=== PATIENT | female | born 1975 | race Caucasian/White ===

== ENCOUNTER 2017-11-14 08:19 | Emergency (ER) | payer SELFPAY ==
[2017-11-14] MEDS ORDERED: Sodium Chloride 0.9% 1,000 ML IV ONE (08:36)
[2017-11-14] MEDS ORDERED: Sodium Chloride 0.9% 2.5 ML Syringe FLUSH PRN (08:36)
[2017-11-14] MEDS ORDERED: Ketorolac 30 MG/ML SDV IVPUSH ONE (08:36)
[2017-11-14] MEDS ORDERED: HYDROmorphone 2 MG/ML Syringe IVPUSH ONE (08:36)
[2017-11-14] MEDS ORDERED: Sodium Chloride 0.9% 10 ML Syringe FLUSH PRN (08:36)
[2017-11-14] MEDS ORDERED: Ondansetron 4 MG/2 ML SDV IVPUSH ONE (08:39)
--- NOTE | 2017-11-14 08:39 | EDM.PDOC ---
ED HPI GENERAL MEDICAL PROBLEM - General Chief Complaint: Genitourinary Problem Stated Complaint: UNABLE TO URINATE Time Seen by Provider: 11/14/17 08:27 - History of Present Illness INITIAL COMMENTS - FREE TEXT/NARRATIVE: HISTORY AND PHYSICAL: History of present illness: The patient is a 42-year-old female with a history of 2 prior episodes of kidney stones on the right one requiring a stent who presents with complaints of right lower back and right flank pain as well as difficulty urinating and dysuria for the last 2-1/2 days. Patient says that she has been passing urine but in very small amounts and there is discomfort with this but there is no blood. Patient has a history of a cholecystectomy and a partial hysterectomy, leaving the ovaries. She has had no fever chills cough chest pain or shortness of breath and no nausea or vomiting. Patient says she's concerned because she is not passing urine appropriately and there is a lot of discomfort when she passes the urine as well as in the suprapubic area as well as the flank. She says this does feel somewhat like a kidney stone as well. The patient denies any midline back pain and no back pain that radiates to her legs and has no bowel or bladder disturbances other than described above are the patient has no neurosensory changes in her lower extremities or weakness. Review of systems: As per history of present illness and below otherwise all systems reviewed and negative. Past medical history: As per history of present illness and as reviewed below otherwise noncontributory. Surgical history: As per history of present illness and as reviewed below otherwise noncontributory. Social history: No reported history of drug or alcohol abuse. Family history: As per history of present illness and as reviewed below otherwise noncontributory. Physical exam: Gen.: Well-developed well-nourished female who looks somewhat uncomfortable in the room but is nontoxic and vital signs have been noted by me HEENT: Atraumatic, normocephalic, pupils reactive, negative for conjunctival pallor or scleral icterus, mucous membranes tacky, throat clear, neck supple, nontender, trachea midline. Lungs: Clear to auscultation, breath sounds equal bilaterally, chest nontender. Heart: S1S2, regular rate and rhythm no overt murmurs Abdomen: Soft, nondistended, some mild suprapubic discomfort without rebound or guarding and bowel sounds are hypoactive Negative for masses or hepatosplenomegaly. Negative for costovertebral tenderness. Pelvis: Stable nontender. Genitourinary: Deferred as patient has had a hysterectomy Rectal: Deferred. Extremities: Atraumatic, negative for cords or calf pain. Neurovascular unremarkable. Neuro: Awake, alert, oriented. Cranial nerves II through XII unremarkable. Cerebellum unremarkable. Motor and sensory unremarkable throughout. Exam nonfocal. Patient moves all extremities without difficulty and there is no loss of tone. Dorsi and plantar flexion is intact inclusive of the great toe 5/5. Patellar reflexes are +2 over 4 bilaterally Back: There are no midline step-offs in his defects of the midline thoracic and lumbar spine no posterior pelvis tenderness. There is some discomfort in the posterior soft tissue flank area on the right. There is no discrete CVA tenderness. Diagnostics: UA urine culture CBC CMP bladder scan and CT scan of the abdomen and pelvis Therapeutics: IV IV fluids Toradol Dilaudid Zofran Patient was able to freely void approximately 80 mL of urine and her bladder scan postvoid residual was 445 mL. We will reevaluate for possible Zhang catheter placement after the CT scan has been obtained All testing results have come back negative and I discussed these results with the patient. We have also repeated the bladder scan which reveals 444 mL of retained urine. I have discussed this case with our urologist Dr. Pinon who does not feel that a Zhang is indicated but he does recommend straight catheterizing the patient and following up with him if she has continued problems with difficulty voiding. Please note that on straight catheter the yield was only 100 mL of urine and the patient tells nursing and me that she feels significantly better. Impression: Dysuria, subjective urinary retention stable Definitive disposition and diagnosis as appropriate pending reevaluation and review of above. bilateral flank pain Pain Score (Numeric/FACES): 10 - Related Data Allergies Allergy/AdvReac Type Severity Reaction Status Date / Time No Known Allergies Allergy Verified 11/14/17 08:29 Home Meds: Home Meds . [No Known Home Meds] 11/14/17 [History] ED ROS GENERAL - Review of Systems Review Of Systems: ROS reveals no pertinent complaints other than HPI. ED EXAM, GENERAL - Physical Exam Exam: See Below (See dictation) Course - Vital Signs Last Recorded V/S: Last Vital Signs Temp 36.7 C 11/14/17 08:30 Pulse 70 11/14/17 09:52 Resp 16 11/14/17 09:52 BP 100/62 11/14/17 09:52 Pulse Ox 98 11/14/17 09:52 - Orders/Labs/Meds Orders: Active Orders 24 hr Category Date Time Status CULTURE URINE [RM] Stat Lab 11/14/17 08:30 Received Sodium Chloride 0.9% [Saline Flush] Med 11/14/17 08:36 Active 10 ml FLUSH ASDIRECTED PRN Sodium Chloride 0.9% [Saline Flush] Med 11/14/17 08:36 Active 2.5 ml FLUSH ASDIRECTED PRN Saline Lock Insert [OM.PC] Stat Oth 11/14/17 08:35 Ordered Medication Orders Sodium Chloride (Saline Flush) 10 ml FLUSH ASDIRECTED PRN PRN Reason: Keep Vein Open Last Admin: 11/14/17 09:25 Dose: 10 ml Sodium Chloride (Saline Flush) 2.5 ml FLUSH ASDIRECTED PRN PRN Reason: Keep Vein Open Last Admin: 11/14/17 09:25 Dose: 2.5 ml Labs: Laboratory Tests 11/14/17 11/14/17 11/14/17 Range/Units 08:30 08:30 08:41 WBC 11.74 H (4.0-11.0) K/uL RBC 4.73 (4.30-5.90) M/uL Hgb 15.2 (12.0-16.0) g/dL Hct 45.3 (36.0-46.0) % MCV 95.8 (80.0-98.0) fL MCH 32.1 H (27.0-32.0) pg MCHC 33.6 (31.0-37.0) g/dL RDW Std Deviation 47.3 (28.0-62.0) fl RDW Coeff of Negrita 14 (11.0-15.0) % Plt Count 309 (150-400) K/uL MPV 9.80 (7.40-12.00) fL Neut % (Auto) 66.9 (48.0-80.0) % Lymph % (Auto) 25.9 (16.0-40.0) % [place] % (Auto) 3.7 (0.0-15.0) % Eos % (Auto) 3.2 (0.0-7.0) % Baso % (Auto) 0.3 (0.0-1.5) % Neut # (Auto) 7.9 H (1.4-5.7) K/uL Lymph # (Auto) 3.0 H (0.6-2.4) K/uL [place] # (Auto) 0.4 (0.0-0.8) K/uL Eos # (Auto) 0.4 (0.0-0.7) K/uL Baso # (Auto) 0.0 (0.0-0.1) K/uL Nucleated RBC % 0.0 /100WBC Nucleated RBCs # 0 K/uL Sodium 138 (136-146) mmol/L Potassium 4.3 (3.5-5.1) mmol/L Chloride 105 (98-110) mmol/L Carbon Dioxide 23 (21-31) mmol/L BUN 9 (6.0-23.0) mg/dL Creatinine 0.8 (0.6-1.5) mg/dL Est Cr Clr Drug Dosing 65.80 mL/min Estimated GFR (MDRD) > 60.0 ml/min Glucose 100 (60-110) mg/dL Calcium 8.9 (8.8-10.8) mg/dL Total Bilirubin 0.9 (0.1-1.5) mg/dL AST 18 (5-40) IU/L ALT 20 (8-54) IU/L Alkaline Phosphatase 64 (40-150) Total Protein 7.0 (6.0-8.0) g/dL Albumin 4.2 (3.5-5.0) g/dL Globulin 2.8 (2.0-3.5) g/dL Albumin/Globulin Ratio 1.5 (1.3-2.8) Urine Color YELLOW Urine Appearance CLEAR Urine pH 6.0 (5.0-8.0) Ur Specific [place] 1.020 (1.001-1.035) Urine Protein NEGATIVE (NEGATIVE) mg/dL Urine Glucose (UA) NEGATIVE (NEGATIVE) mg/dL Urine Ketones NEGATIVE (NEGATIVE) mg/dL Urine Occult Blood NEGATIVE (NEGATIVE) Urine Nitrite NEGATIVE (NEGATIVE) Urine Bilirubin NEGATIVE (NEGATIVE) Urine Urobilinogen 0.2 (<2.0) EU/dL Ur Leukocyte Esterase NEGATIVE (NEGATIVE) Urine RBC 0-1 (0-2/HPF) Urine WBC 0-1 (0-5/HPF) Ur Epithelial Cells OCCASIONAL (NONE-FEW) Urine Bacteria RARE (NEGATIVE) Meds: Medications Generic Name Dose Route Start Last Admin Trade Name Freq PRN Reason Stop Dose Admin Sodium Chloride 10 ml 11/14/17 08:36 11/14/17 09:25 Saline Flush FLUSH 10 ml ASDIRECTED PRN Administration Keep Vein Open Sodium Chloride 2.5 ml 11/14/17 08:36 11/14/17 09:25 Saline Flush FLUSH 2.5 ml ASDIRECTED PRN Administration Keep Vein Open Discontinued Medications Generic Name Dose Route Start Last Admin Trade Name Freq PRN Reason Stop Dose Admin Hydromorphone HCl 1 mg 11/14/17 08:36 11/14/17 08:54 Dilaudid IVPUSH 11/14/17 08:37 1 mg ONETIME ONE Administration Sodium Chloride 1,000 mls @ 999 mls/hr 11/14/17 08:36 11/14/17 08:49 Normal Saline IV 11/14/17 09:36 999 mls/hr STAT ONE Administration Ketorolac Tromethamine 30 mg 11/14/17 08:36 11/14/17 08:51 Toradol IVPUSH 11/14/17 08:37 30 mg ONETIME ONE Administration Ondansetron HCl 4 mg 11/14/17 08:39 11/14/17 08:51 Zofran IVPUSH 11/14/17 08:40 4 mg ONETIME ONE Administration Departure - Departure Time of Disposition: 10:28 Disposition: Home, Self-Care 01 Condition: Good Clinical Impression: Dysuria, Flank pain - Discharge Information Referrals: PCP,None [Primary Care Provider] - Forms: ED Department Discharge Additional Instructions: The following information is given to patients seen in the emergency department who are being discharged to home. This information is to outline your options for follow-up care. We provide all patients seen in our emergency department with a follow-up referral. The need for follow-up, as well as the timing and circumstances, are variable depending upon the specifics of your emergency department visit. If you don't have a primary care physician on staff, we will provide you with a referral. We always advise you to contact your personal physician following an emergency department visit to inform them of the circumstance of the visit and for follow-up with them and/or the need for any referrals to a consulting specialist. The emergency department will also refer you to a specialist when appropriate. This referral assures that you have the opportunity for followup care with a specialist. All of these measure are taken in an effort to provide you with optimal care, which includes your followup. Under all circumstances we always encourage you to contact your private physician who remains a resource for coordinating your care. When calling for followup care, please make the office aware that this follow-up is from your recent emergency room visit. If for any reason you are refused follow-up, please contact the [facility] emergency department at and ask to speak to the emergency department charge nurse. [facility] Primary care- Internal Medicine and [facility] [address] [place] [id number] [facility] [address] [place] [id number] Please contact our clinic to connect with her primary care physician for further care and evaluation going forward as we discussed. Push hydration and return to ER as needed and as discussed especially if symptoms return or progress. - My Orders Last 24 Hours: My Active Orders 11/14/17 08:30 CULTURE URINE [RM] Stat 11/14/17 08:35 Saline Lock Insert [OM.PC] Stat 11/14/17 08:36 Sodium Chloride 0.9% [Saline Flush] 10 ml FLUSH ASDIRECTED PRN Sodium Chloride 0.9% [Saline Flush] 2.5 ml FLUSH ASDIRECTED PRN - Assessment/Plan Last 24 Hours: My Active Orders 11/14/17 08:30 CULTURE URINE [RM] Stat 11/14/17 08:35 Saline Lock Insert [OM.PC] Stat 11/14/17 08:36 Sodium Chloride 0.9% [Saline Flush] 10 ml FLUSH ASDIRECTED PRN Sodium Chloride 0.9% [Saline Flush] 2.5 ml FLUSH ASDIRECTED PRN
[2017-11-14 09:10] LABS: CHLORIDE,CL 105 mmol/L (98-110); SODIUM,NA 138 mmol/L (136-146)
--- NOTE | 2017-11-14 09:55 | CT ---
CT of the abdomen and pelvis without contrast. HISTORY: Pain TECHNIQUE: Axial CT images were obtained of the abdomen and pelvis without contrast. Coronal and sagi ttal reconstructions obtained. FINDINGS: The lung bases are clear, no pleural effusion. The liver, spleen, adrenal glands, and pancreas appear unremarkable for noncontrast examination. Chol ecystectomy. There is no bulky retroperitoneal lymphadenopathy. No abdominal ascites. There are no calcifications noted within the kidneys or along the courses of the ureters bilaterally. The large and small bowel are normal in caliber without evidence of obstruction. The appendix appears normal. There is no bulky pelvic lymphadenopathy. No free fluid. No free air. The urinary bladder ap pears normal. The ovaries appear normal. The visualized osseous structures appear normal. IMPRESSION: No acute findings within the abdomen or pelvis.
== END 2017-11-14 10:45 | disposition home or self-care (01) ==
LOC: MW.ED 08:19
DX: R33.9 Retention of urine, unspecified (principal); R30.0 Dysuria
CPT/HCPCS: 36415; 74176; 80053; 81001; 85025; 87086; 96361; 96374; 96375; 99284; J1170; J1885; J2405; J7040; 99283

== ENCOUNTER 2017-12-29 12:45 | Emergency (ER) | payer SELFPAY ==
--- NOTE | 2017-12-29 12:59 | EDM.PDOC ---
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 Time Seen by Provider: 12/29/17 12:59 Source of Information: Reports: Patient - History of Present Illness INITIAL COMMENTS - FREE TEXT/NARRATIVE: HISTORY AND PHYSICAL: History of present illness: [ Patient presents with abdominal pain she has a known history of pain associated with her ovaries/ovarian pain however today she states she has subjective fever and sweats as well as nausea which is different for her her pain is mostly on the left however on abdominal exam I do created a right lower quadrant tenderness with slight guarding no rebound tenderness No current fever vomiting or chills no chest pain shortness breath headache dizziness or palpitation no bowel or urine symptoms ] Review of systems: As per history of present illness and below otherwise all systems reviewed and negative. Past medical history: As per history of present illness and as reviewed below otherwise noncontributory. Surgical history: As per history of present illness and as reviewed below otherwise noncontributory. Social history: No reported history of drug or alcohol abuse. Family history: As per history of present illness and as reviewed below otherwise noncontributory. Physical exam: HEENT: Atraumatic, normocephalic, pupils reactive, negative for conjunctival pallor or scleral icterus, mucous membranes moist, throat clear, neck supple, nontender, trachea midline. Lungs: Clear to auscultation, breath sounds equal bilaterally, chest nontender. Heart: S1S2, regular, negative for clicks, rubs, or JVD. Abdomen: Soft, nondistended, tender on deep palpation in the right lower quadrant with some guarding no rebound tenderness. Negative for masses or hepatosplenomegaly. Negative for costovertebral tenderness. Pelvis: Stable nontender. Genitourinary: Deferred. Rectal: Deferred. Extremities: Atraumatic, negative for cords or calf pain. Neurovascular unremarkable. Neuro: Awake, alert, oriented. Cranial nerves II through XII unremarkable. Cerebellum unremarkable. Motor and sensory unremarkable throughout. Exam nonfocal. Diagnostics: [CBC CMP UA CT abdomen pelvis with contrast ] Therapeutics: [1 L normal saline bolus Zofran 8 mg IV Toradol 30 mg IV Morphine 2 mg IV [place] 5 per 325 #10 no refill Bactrim double strength by mouth twice a day #20 no refill ] Follow-up with primary care for continued pain management as needed Impression: [Abdominal pain] Bacteria 1+ in urine in addition 2-3-5 white blood cells, culture pending Definitive disposition and diagnosis as appropriate pending reevaluation and review of above. lower abd Pain Score (Numeric/FACES): 10 - Related Data Allergies Allergy/AdvReac Type Severity Reaction Status Date / Time No Known Allergies Allergy Verified 12/29/17 13:03 Home Meds: Home Meds . [No Known Home Meds] 11/14/17 [History] Past Medical History Genitourinary History: Reports: Renal Calculus - Past Surgical History GI Surgical History: Reports: Cholecystectomy Female Surgical History: Reports: Hysterectomy, Ureteral Stent Social & Family History - Family History Family Medical History: Noncontributory - Tobacco Use Smoking Status *Q: Current Every Day Smoker Years of Tobacco use: 20 Packs/Tins Daily: 1 - Caffeine Use Caffeine Use: Reports: Tea - Alcohol Use Days Per Week of Alcohol Use: 7 Number of Drinks Per Day: 4 Total Drinks Per Week: 28 - Recreational Drug Use Recreational Drug Use: No ED ROS GENERAL - Review of Systems Review Of Systems: See Below ED EXAM, GENERAL - Physical Exam Exam: See Below Course - Vital Signs Last Recorded V/S: Last Vital Signs Temp 97.7 F 12/29/17 15:29 Pulse 85 12/29/17 15:29 Resp 16 12/29/17 14:48 BP 107/66 12/29/17 15:29 Pulse Ox 98 12/29/17 15:29 - Orders/Labs/Meds Orders: Active Orders 24 hr Category Date Time Status Abdomen Pelvis w Cont [CT] Stat Exams 12/29/17 14:41 Taken Labs: Laboratory Tests 12/29/17 12/29/17 12/29/17 Range/Units 13:50 13:50 13:59 WBC 10.70 (4.0-11.0) K/uL RBC 4.70 (4.30-5.90) M/uL Hgb 15.1 (12.0-16.0) g/dL Hct 43.9 (36.0-46.0) % MCV 93.4 (80.0-98.0) fL MCH 32.1 H (27.0-32.0) pg MCHC 34.4 (31.0-37.0) g/dL RDW Std Deviation 47.4 (28.0-62.0) fl RDW Coeff of Negrita 14 (11.0-15.0) % Plt Count 334 (150-400) K/uL MPV 10.60 (7.40-12.00) fL Neut % (Auto) 65.3 (48.0-80.0) % Lymph % (Auto) 26.4 (16.0-40.0) % [place] % (Auto) 5.1 (0.0-15.0) % Eos % (Auto) 2.9 (0.0-7.0) % Baso % (Auto) 0.3 (0.0-1.5) % Neut # (Auto) 7.0 H (1.4-5.7) K/uL Lymph # (Auto) 2.8 H (0.6-2.4) K/uL [place] # (Auto) 0.6 (0.0-0.8) K/uL Eos # (Auto) 0.3 (0.0-0.7) K/uL Baso # (Auto) 0.0 (0.0-0.1) K/uL Nucleated RBC % 0.0 /100WBC Nucleated RBCs # 0 K/uL Sodium 140 (136-146) mmol/L Potassium 3.9 (3.5-5.1) mmol/L Chloride 109 (98-110) mmol/L Carbon Dioxide 22 (21-31) mmol/L BUN 10 (6.0-23.0) mg/dL Creatinine 0.8 (0.6-1.5) mg/dL Est Cr Clr Drug Dosing 65.80 mL/min Estimated GFR (MDRD) > 60.0 ml/min Glucose 96 (60-110) mg/dL Calcium 8.6 L (8.8-10.8) mg/dL Total Bilirubin 0.7 (0.1-1.5) mg/dL AST 14 (5-40) IU/L ALT 16 (8-54) IU/L Alkaline Phosphatase 64 (40-150) Troponin I < 0.10 (0.0-0.29) NG/ML C-Reactive Protein 0.92 H (0.0-0.5) mg/dL Total Protein 6.4 (6.0-8.0) g/dL Albumin 4.0 (3.5-5.0) g/dL Globulin 2.4 (2.0-3.5) g/dL Albumin/Globulin Ratio 1.7 (1.3-2.8) Urine Color DARK YELLOW Urine Appearance CLOUDY Urine pH 6.0 (5.0-8.0) Ur Specific [place] >= 1.030 (1.001-1.035) Urine Protein NEGATIVE (NEGATIVE) mg/dL Urine Glucose (UA) NEGATIVE (NEGATIVE) mg/dL Urine Ketones NEGATIVE (NEGATIVE) mg/dL Urine Occult Blood NEGATIVE (NEGATIVE) Urine Nitrite NEGATIVE (NEGATIVE) Urine Bilirubin NEGATIVE (NEGATIVE) Urine Urobilinogen 0.2 (<2.0) EU/dL Ur Leukocyte Esterase NEGATIVE (NEGATIVE) Urine RBC 0-1 (0-2/HPF) Urine WBC 2-5 (0-5/HPF) Ur Epithelial Cells MANY (NONE-FEW) Urine Bacteria 1+ H (NEGATIVE) Urine Mucus MODERATE (NONE-MOD) Meds: Medications Discontinued Medications Generic Name Dose Route Start Last Admin Trade Name Freq PRN Reason Stop Dose Admin Sodium Chloride 1,000 mls @ 999 mls/hr 12/29/17 13:35 12/29/17 13:56 Normal Saline IV 12/29/17 14:35 999 mls/hr STAT ONE Administration Iopamidol 100 ml 12/29/17 15:20 Isovue Multipack-370 (76%) IVPUSH 12/29/17 15:21 ONETIME ONE Ketorolac Tromethamine 30 mg 12/29/17 13:35 12/29/17 13:56 Toradol IVPUSH 12/29/17 13:36 30 mg ONETIME ONE Administration Morphine Sulfate 2 mg 12/29/17 14:40 12/29/17 14:46 Morphine IVPUSH 12/29/17 14:41 2 mg ONETIME ONE Administration Ondansetron HCl 8 mg 12/29/17 14:40 12/29/17 14:46 Zofran IVPUSH 12/29/17 14:41 8 mg ONETIME ONE Administration Departure - Departure Time of Disposition: 15:50 Disposition: Home, Self-Care 01 Condition: Good Clinical Impression: Abdominal pain - Discharge Information Referrals: PCP,None [Primary Care Provider] - Forms: ED Department Discharge Additional Instructions: Medication as prescribed Return if symptoms persist or worsen Follow-up with primary care in 2 weeks, number below provided to schedule appropriate appointment for follow-up [facility] - [facility] [address] [place] [id number] The following information is given to patients seen in the emergency department who are being discharged to home. This information is to outline your options for follow-up care. We provide all patients seen in our emergency department with a follow-up referral. The need for follow-up, as well as the timing and circumstances, are variable depending upon the specifics of your emergency department visit. If you don't have a primary care physician on staff, we will provide you with a referral. We always advise you to contact your personal physician following an emergency department visit to inform them of the circumstance of the visit and for follow-up with them and/or the need for any referrals to a consulting specialist. The emergency department will also refer you to a specialist when appropriate. This referral assures that you have the opportunity for follow-up care with a specialist. All of these measure are taken in an effort to provide you with optimal care, which includes your follow-up. Under all circumstances we always encourage you to contact your private physician who remains a resource for coordinating your care. When calling for follow-up care, please make the office aware that this follow-up is from your recent emergency room visit. If for any reason you are refused follow-up, please contact the [facility] emergency department at and asked to speak to the emergency department charge nurse. - My Orders Last 24 Hours: My Active Orders 12/29/17 14:41 Abdomen Pelvis w Cont [CT] Stat - Assessment/Plan Last 24 Hours: My Active Orders 12/29/17 14:41 Abdomen Pelvis w Cont [CT] Stat
[2017-12-29] MEDS ORDERED: Ketorolac 30 MG/ML SDV IVPUSH ONE (13:35)
[2017-12-29] MEDS ORDERED: Sodium Chloride 0.9% 1,000 ML IV ONE (13:35)
[2017-12-29] MEDS ORDERED: Morphine 2 MG/ML Syringe IVPUSH ONE (14:40)
[2017-12-29] MEDS ORDERED: Ondansetron 4 MG/2 ML SDV IVPUSH ONE (14:40)
[2017-12-29 14:49] LABS: CHLORIDE,CL 109 mmol/L (98-110); SODIUM,NA 140 mmol/L (136-146)
[2017-12-29] MEDS ORDERED: Iopamidol 755 MG/ML 500 ML Multipack Bottle IVPUSH ONE (15:20)
--- NOTE | 2017-12-31 17:44 | CT ---
EXAM DATE: 12/29/17 PATIENT'S AGE: 42 Patient: DALI NAGY Facility: [place], [place] Site . Site : [id number] Study: CT Abdomen [id number]/[id number] 3:25:23 PM Ordering Physician: Jackelin Canales Final Report: HISTORY: Left lower quadrant pain. TECHNIQUE: Contrast-enhanced CT abdomen and pelvis without 100 Varg[place] Isovue-370 coronal sagittal reformatted images obtained. COMPARISON: No comparison studies are available. FINDINGS: The heart size is normal. The lung bases appear clear. There is no pericardial or pleural effusion. Tiny low density lesion in the liver too small to characterize. Cholecystectomy. Pancreas adrenal glands spleen is unremarkable. Kidneys enhance symmetrically. There is no hydronephrosis. Normal appendix. Urinary bladder is unremarkable. No inflammatory change are seen. Bowel is unremarkable. Osseous structures are unremarkable. IMPRESSION: 1. No acute findings in the abdomen or pelvis. Please note that all CT scans at this facility use dose modulation, iterative reconstruction, and/or weight-based dosing when appropriate to reduce radiation dose to as low as reasonably achievable. Dictated by Soco Yao MD @ Dec 29 2017 3:39PM (Electronic Signature) Report Signed by Proxy. ALAN
== END 2017-12-29 16:12 | disposition home or self-care (01) ==
LOC: MW.ED 12:45
DX: R82.71 Bacteriuria (principal); R10.30 Lower abdominal pain, unspecified; F17.210 Nicotine dependence, cigarettes, uncomplicated; Z90.710 Acquired absence of both cervix and uterus; Z90.49 Acquired absence of other specified parts of digestive tract; Z96.0 Presence of urogenital implants
CPT/HCPCS: 36415; 74177; 80053; 81001; 84484; 85025; 86140; 87086; 96361; 96374; 96375; 99284; J1885; J2270; J2405; J7040

== ENCOUNTER 2018-08-06 16:08 | Emergency (ER) | payer MEDICAID ==
[2018-08-06] MEDS ORDERED: methylPREDNISolone Sodium Succinate 125 MG/2 ML SDV IM ONE (16:43)
[2018-08-06] MEDS ORDERED: Albuterol/Ipratropium 3.0-0.5 MG/3 ML Neb Soln NEB ONE (16:43)
--- NOTE | 2018-08-06 16:44 | EDM.PDOC ---
ED HPI GENERAL MEDICAL PROBLEM - General Chief Complaint: General Stated Complaint: SICK FOR A WEEK Time Seen by Provider: 08/06/18 16:26 Source of Information: Reports: Patient - History of Present Illness INITIAL COMMENTS - FREE TEXT/NARRATIVE: HISTORY AND PHYSICAL: History of present illness: []Patient with smoking history presents with cough increasing in severity over the last 2 weeks some shortness of breath or wheeze exertion no chest pain headache dizziness palpitation no fever nausea vomiting chills sweats Total abdominal hysterectomy Review of systems: As per history of present illness and below otherwise all systems reviewed and negative. Past medical history: As per history of present illness and as reviewed below otherwise noncontributory. Surgical history: As per history of present illness and as reviewed below otherwise noncontributory. Social history: No reported history of drug or alcohol abuse. Family history: As per history of present illness and as reviewed below otherwise noncontributory. Physical exam: HEENT: Atraumatic, normocephalic, pupils reactive, negative for conjunctival pallor or scleral icterus, mucous membranes moist, throat clear, neck supple, nontender, trachea midline. Lungs: Clear to auscultation, breath sounds equal bilaterally, chest nontender she is tender along the lower rib margin and paraspinous muscles. Post DuoNeb Heart: S1S2, regular, negative for clicks, rubs, or JVD. Abdomen: Soft, nondistended, nontender. Negative for masses or hepatosplenomegaly. Negative for costovertebral tenderness. Pelvis: Stable nontender. Genitourinary: Deferred. Rectal: Deferred. Extremities: Atraumatic, negative for cords or calf pain. Neurovascular unremarkable. Neuro: Awake, alert, oriented. Cranial nerves II through XII unremarkable. Cerebellum unremarkable. Motor and sensory unremarkable throughout. Exam nonfocal. Diagnostics: [Chest 2 views ]Patient declines rib views Therapeutics: [125 mg IM DuoNeb Z-Kwabena ]HFA Tramadol Impression: [ acute bronchitis ] Definitive disposition and diagnosis as appropriate pending reevaluation and review of above. RIght Ribs Pain Score (Numeric/FACES): 10 - Related Data Allergies Allergy/AdvReac Type Severity Reaction Status Date / Time No Known Allergies Allergy Verified 08/06/18 16:36 Home Meds: Home Meds . [No Known Home Meds] 11/14/17 [History] Past Medical History - Past Health History Medical/Surgical History: Denies Medical/Surgical History Genitourinary History: Reports: Renal Calculus - Infectious Disease History Infectious Disease History: Reports: Chicken Pox - Past Surgical History GI Surgical History: Reports: Cholecystectomy Female Surgical History: Reports: Hysterectomy, Ureteral Stent Social & Family History - Family History Family Medical History: Noncontributory - Tobacco Use Smoking Status *Q: Current Every Day Smoker Years of Tobacco use: 30 Packs/Tins Daily: 1.5 - Caffeine Use Caffeine Use: Reports: Soda - Alcohol Use Days Per Week of Alcohol Use: 5 Number of Drinks Per Day: 3 Total Drinks Per Week: 15 - Recreational Drug Use Recreational Drug Use: Yes Drug Use in Last 12 Months: Yes Recreational Drug Type: Reports: Marijuana/Hashish Recreational Drug Use Frequency: Socially ED ROS GENERAL - Review of Systems Review Of Systems: See Below ED EXAM, GENERAL - Physical Exam Exam: See Below Course - Vital Signs Last Recorded V/S: Last Vital Signs Temp 97.5 F 08/06/18 16:32 Pulse 102 H 08/06/18 16:32 Resp 20 08/06/18 16:32 BP 129/84 08/06/18 16:32 Pulse Ox 97 08/06/18 16:32 - Orders/Labs/Meds Orders: Active Orders 24 hr Category Date Time Status RT Aerosol Therapy [RC] ASDIRECTED Care 08/06/18 16:43 Active Chest 2V [CR] Stat Exams 08/06/18 16:44 Taken Meds: Medications Discontinued Medications Generic Name Dose Route Start Last Admin Trade Name Deoq PRN Reason Stop Dose Admin Albuterol/Ipratropium 3 ml 08/06/18 16:43 08/06/18 16:54 Duoneb 3.0-0.5 Mg/3 Ml NEB 08/06/18 16:44 3 ml ONETIME ONE Administration Methylprednisolone Sodium Succinate 125 mg 08/06/18 16:43 08/06/18 16:54 Solu-Medrol IM 08/06/18 16:44 125 mg ONETIME ONE Administration Departure - Departure Time of Disposition: 17:27 Disposition: Home, Self-Care 01 Condition: Good Clinical Impression: Acute bronchitis - Discharge Information Referrals: PCP,None [Primary Care Provider] - Forms: ED Department Discharge Additional Instructions: The following information is given to patients seen in the emergency department who are being discharged to home. This information is to outline your options for follow-up care. We provide all patients seen in our emergency department with a follow-up referral. The need for follow-up, as well as the timing and circumstances, are variable depending upon the specifics of your emergency department visit. If you don't have a primary care physician on staff, we will provide you with a referral. We always advise you to contact your personal physician following an emergency department visit to inform them of the circumstance of the visit and for follow-up with them and/or the need for any referrals to a consulting specialist. The emergency department will also refer you to a specialist when appropriate. This referral assures that you have the opportunity for follow-up care with a specialist. All of these measure are taken in an effort to provide you with optimal care, which includes your follow-up. Under all circumstances we always encourage you to contact your private physician who remains a resource for coordinating your care. When calling for follow-up care, please make the office aware that this follow-up is from your recent emergency room visit. If for any reason you are refused follow-up, please contact the [facility] emergency department at and asked to speak to the emergency department charge nurse.
[2018-08-06] MEDS ORDERED: Acetaminophen/HYDROcodone 325-5 MG Tab PO ONE (17:28)
--- NOTE | 2018-08-07 10:21 | CR ---
EXAM DATE: 08/06/18 PATIENT'S AGE: 43 Patient: DALI NAGY Facility: [place], [place] Site . Site : [id number] Study: XRay Chest [id number]/25/2018 5:15:51 PM Ordering Physician: Jackelin Canales Final Report: INDICATION: Cough for 2 weeks COMPARISON: None available. FINDINGS: PA and lateral views of the chest were obtained. The lungs are clear. No focal or diffuse infiltrates are present. The heart is normal in size. The mediastinum is normal in appearance. The osseous structures are normal in appearance for the patient`s age. IMPRESSION: NORMAL CHEST 2 VIEWS. Dictated by Spenser Waldrop MD @ Aug 06 2018 5:40PM (Electronic Signature) Report Signed by Proxy. ALAN
== END 2018-08-06 17:40 | disposition home or self-care (01) ==
LOC: MW.ED 16:08
DX: J20.9 Acute bronchitis, unspecified (principal)
CPT/HCPCS: 71046; 94640; 96372; 99283; A9270; J2930; J7620-GY

== ENCOUNTER 2019-04-23 10:29 | Day surgery (SDC) | payer MEDICAID ==
[~2019-04-23 10:29] MED LIST: Lactated Ringers 1,000 ML IV SCH
[2019-04-23] MEDS ORDERED: Propofol 200 MG/20 ML SDV ONE (11:04)
[2019-04-23] MEDS ORDERED: Midazolam 1 MG/ML 2 ML SDV ONE (11:04)
[2019-04-23] MEDS ORDERED: fentaNYL 100 MCG/2 ML SDV ONE (11:05)
--- NOTE | 2019-04-23 11:13 | PCM.PREANE ---
Preanesthetic Assessment - Anesthesia/Transfusion/Family Hx Anesthesia History: Prior Anesthesia Without Reaction Family History of Anesthesia Reaction: No Transfusion History: No Prior Transfusion(s) Intubation History: Unknown - Review of Systems General: No Symptoms Pulmonary: No Symptoms Cardiovascular: No Symptoms Gastrointestinal: Abdominal Pain, Hematochezia Neurological: No Symptoms Other: Reports: None - Physical Assessment Height: 5 ft Weight: 85.729 kg ASA Class: 3 Mental Status: Alert & Oriented x3 Airway Class: Mallampati = 2 Dentition: Reports: Normal Dentition, Broken Tooth/Teeth (on the back side) Thyro-Mental Finger Breadths: 3 Mouth Opening Finger Breadths: 3 ROM/Head Extension: Full Lungs: Clear to Auscultation, Normal Respiratory Effort, Decreased Breath Sounds Cardiovascular: Regular Rate, Regular Rhythm - Allergies Allergies/Adverse Reactions: Allergies Allergy/AdvReac Type Severity Reaction Status Date / Time No Known Allergies Allergy Verified 04/18/19 15:49 - Blood Blood Available: No - Anesthesia Plan Pre-Op Medication Ordered: None - Acknowledgements Anesthesia Type Planned: MAC Pt an Appropriate Candidate for the Planned Anesthesia: Yes Alternatives and Risks of Anesthesia Discussed w Pt/Guardian: Yes Pt/Guardian Understands and Agrees with Anesthesia Plan: Yes PreAnesthesia Questionnaire - Past Health History Medical/Surgical History: Denies Medical/Surgical History HEENT History: Reports: Other (See Below) Other HEENT History: weaqrs glasses Respiratory History: Reports: COPD (moderate), SOB (on exertion, can't walk 2 blocke without SOB) Gastrointestinal History: Reports: GERD Genitourinary History: Reports: Renal Calculus Musculoskeletal History: Reports: Back Pain, Chronic Neurological History: Reports: Concussion Psychiatric History: Reports: Anxiety, Depression Endocrine/Metabolic History: Reports: Obesity/BMI 30+ - Infectious Disease History Infectious Disease History: Reports: Chicken Pox - Past Surgical History GI Surgical History: Reports: Cholecystectomy Female Surgical History: Reports: Hysterectomy, Lithotripsy/ESWL - SUBSTANCE USE Smoking Status *Q: Current Every Day Smoker (1/2 ppd) Tobacco Use Within Last Twelve Months: Cigarettes Recreational Drug Use History: No Recreational Drug Type: Reports: Marijuana/Hashish (occasionaly) - HOME MEDS Home Medications: Home Meds Albuterol [Ventolin HFA] 1 - 2 puff INH Q4H PRN 04/18/19 [History] Glycopyrrolate/Formoterol Fum [Bevespi Aerosphere Inhaler] 2 puff INH BID [History] - CURRENT (IN HOUSE) MEDS Current Meds: Current Medications Lactated Ringer's (Ringers, Lactated) 1,000 mls @ 125 mls/hr IV ASDIRECTED MICHAEL Discontinued Medications Fentanyl (Sublimaze) Confirm Administered Dose 100 mcg .ROUTE .STK-MED ONE Stop: 04/23/19 11:06 Midazolam HCl (Versed 1 Mg/Ml) Confirm Administered Dose 4 mg .ROUTE .STK-MED ONE Stop: 04/23/19 11:05 Propofol (Diprivan 20 Ml) Confirm Administered Dose 400 mg .ROUTE .STK-MED ONE Stop: 04/23/19 11:05
[2019-04-23] MEDS ORDERED: Ketamine 500 mg/10 ML MDV ONE (11:36)
--- NOTE | 2019-04-23 12:18 | PCM.OPNOTE ---
- General Post-Op/Procedure Note Date of Surgery/Procedure: 04/23/19 Operative Procedure(s): egd w bx. colonoscopy Findings: see dict [id number] Pre Op Diagnosis: BRBPR, emisis Post-Op Diagnosis: Same Anesthesia Technique: Moderate Sedation Primary Surgeon: Jonnathan Rubio Pathology: egd bx Complications: None Condition: Good
--- NOTE | 2019-04-23 12:45 | OR ---
SURGEON: Jonnathan Rubio MD DATE OF PROCEDURE: 04/23/2019 PREOPERATIVE DIAGNOSES: Bright red blood per rectum, abdominal pain, emesis. POSTOPERATIVE DIAGNOSES: Esophagogastroduodenoscopy diagnosis, acid reflux. Colonoscopy diagnosis, polyp PROCEDURES PERFORMED: Esophagogastroduodenoscopy with biopsy and colonoscopy with snare polypectomy DESCRIPTION OF PROCEDURE: EGD: The patient was taken to the endoscopy room, and with the EMBOSSING CLERK, Diprivan was administered. A well-lubricated EGD scope was gently inserted through the oropharynx, down the esophagus, passing through the gastroesophageal junction, into the stomach. The mucosa was examined upon the passage. Any etiology will be noted. Once in the stomach, we continued to advance to the distal antrum, passed through the pylorus into the second portion of the duodenum. Again, the mucosa was examined for any abnormality and etiology. The scope was then retrieved back to the stomach and then retroflexed to look at the fundus of the stomach. If a biopsy was indicated, we will biopsy the antrum, body, and gastroesophageal junction. The air will be sucked out while the scope is retrieved to reduce the patient's discomfort. The patient tolerated the procedure well. There were no intraoperative complications. Dr. Rubio was present through the whole procedure. Prior to surgery, a time-out had been called, the patient identified, procedure identified and antibiotic administered. The patient was taken to the endoscopy room. A time out was called, patient identified, and procedure identified. Diprivan was then administrated. Patient went from awake to sleep, hearing doctor talking or door closing is normal. Perineum inspection and digital examination were then performed. A well- lubricated colonoscope was gently inserted through the rectum, advanced past the rectosigmoid junction, the descending colon, splenic flexure, transverse colon, hepatic flexure, ascending colon, arrived to the cecum. Cecum was identified as dictated in the finding. Then the scope was carefully withdrawn while attention was paid to the mucosal surface for any abnormality. Air will be sucked out during the scope withdrawal. At the rectum, retroflexed to examine any rectal diseases, fistula or hemorrhoids. Small polyp encountered at 20 cm, snare polypectomy and sent for pathology; Patient tolerated procedure well. There were no intraoperative complications, and Dr. Rubio was present throughout the whole procedure. FINDINGS: EGD findings: 1. The patient is easily sedated with EMBOSSING CLERK and Diprivan, the patient is soundly snoring. 2. Oropharynx and proximal esophagus are free of disease, inflammation, or stricture. Distal esophagus at GE junction at 40 with mild to moderate salmon-colored change consistent with acid reflux. Stomach rugae are normal in appearance. No bile, no food, no blood. Antrum is fine and duodenum is grossly normal. Retroflexed look at the fundus of stomach, there is no hiatal hernia. Biopsy done at antrum, body, GE junction at 40 and sucked out the gas while scope pulling out. Colonoscopy findings: 1. The patient is easily sedated with EMBOSSING CLERK and Diprivan, the patient is soundly snoring. 2. Bowel prep is average to above average, very little liquid stool. 3. Colon is rather straightforward, but kind of short and colon stump at 1 m. Ileocecal fold and one-to-one indentation and appendiceal orifice are observed. Light emittance is not observed due to body habitus. Mucosa examined upon scope pulling out. at distance 20cm when scope withdrawn, there was a small sessile polyp, snared and sent for pathology; The patient does not have diverticulosis, mass, growth, inflammation, stricture, ulceration, AV malformation, none of those. The patient has mild internal hemorrhoids and mild external hemorrhoids. The patient would benefit from repeat colonoscopy in 10 years from today or if clinically indicated otherwise, or polyp path indicated otherwise. MARIANELA / CJ /[id number] ALAN
--- NOTE | 2019-04-23 12:55 | PCM48HPAN ---
Post Anesthesia Note - EVALUATION WITHIN 48HRS OF ANESTHETIC Vital Signs in Normal Range: Yes Patient Participated in Evaluation: Yes Respiratory Function Stable: Yes Airway Patent: Yes Cardiovascular Function Stable: Yes Hydration Status Stable: Yes Pain Control Satisfactory: Yes Nausea and Vomiting Control Satisfactory: Yes Mental Status Recovered: Yes Resp Rate: 20 - COMMENTS/OBSERVATIONS Free Text/Narrative:: No anesthesia problems
== END 2019-04-23 13:03 | disposition home or self-care (01) ==
LOC: MW.SDS 10:29
PROVIDERS: ATTEND Surgery
DX: K62.5 Hemorrhage of anus and rectum (principal); K63.5 Polyp of colon; K64.8 Other hemorrhoids; K64.4 Residual hemorrhoidal skin tags; K21.0 Gastro-esophageal reflux disease with esophagitis; K31.89 Other diseases of stomach and duodenum; R19.4 Change in bowel habit; J44.9 Chronic obstructive pulmonary disease, unspecified; E55.9 Vitamin D deficiency, unspecified; F17.210 Nicotine dependence, cigarettes, uncomplicated; F41.9 Anxiety disorder, unspecified; F32.9 Major depressive disorder, single episode, unspecified; Z79.899 Other long term (current) drug therapy
CPT/HCPCS: 43239; 45385; J2001; J2250; J2704; J3010; J7120; 00813; 88305; 88312

== ENCOUNTER 2019-08-11 09:48 | Emergency (ER) | payer MEDICAID ==
[2019-08-11] MEDS ORDERED: Sodium Chloride 0.9% 1,000 ML IV ONE (10:03)
[2019-08-11] MEDS ORDERED: Ondansetron 4 MG/2 ML SDV IVPUSH ONE (10:03)
[2019-08-11] MEDS ORDERED: Ketorolac 30 MG/ML SDV IVPUSH ONE (10:19)
[2019-08-11 11:02] LABS: BLOOD UREA NITROGEN,BUN 6 mg/dL (7.0-18.0); CARBON DIOXIDE,CO2 24.3 mmol/L (21.0-32.0); CHLORIDE,CL 104 mmol/L (98-107); GLUCOSE RANDOM 131 mg/dL (74-106); LIPASE 96 U/L (73-393); POTASSIUM,K 4.4 mmol/L (3.5-5.1); SODIUM,NA 139 mmol/L (136-145)
[2019-08-11] MEDS ORDERED: Morphine 2 MG/ML Syringe IVPUSH ONE (13:02)
[2019-08-11] MEDS ORDERED: HYDROmorphone 1 MG/ML Syringe IVPUSH ONE (14:13)
[2019-08-11] MEDS ORDERED: Pantoprazole 40 MG Vial IVPUSH ONE (14:21)
[2019-08-11] MEDS ORDERED: Promethazine 25 MG/ML SDV IM ONE (14:21)
[2019-08-11] MEDS ORDERED: Pantoprazole 40 MG Vial ONE (14:23)
[2019-08-11] MEDS ORDERED: Sodium Chloride 0.9% 20 ML ONE (14:23)
[2019-08-11] MEDS ORDERED: Promethazine 25 MG/ML SDV ONE (14:23)
--- NOTE | 2019-08-11 14:27 | CT ---
CT abdomen and pelvis Technique: Multiple axial sections were obtained from above the dome of the diaphragm inferiorly through the pubic symphysis. Intravenous contrast and oral contrast was not utilized. Comparison: Prior CT abdomen and pelvis exam of 04/16/19. Findings: Visualized portions of both lung bases show nothing acute. Noncontrast appearance of the liver shows no focal abnormality. Spleen also appears within normal limits. Adrenal glands show no nodule. Surgical clips are seen from prior cholecystectomy. Pancreas shows no discrete abnormality. Aorta shows no aneurysm. Atherosclerotic calcification is seen within the aorta. Kidneys show no abnormal calcifications. No retroperitoneal adenopathy or mesenteric abnormalities are seen. No pelvic mass or adenopathy is seen. No free fluid is identified. Appendix is seen which shows no dilatation. No free fluid or inflammatory change is seen. No bowel dilatation is seen. Bone window settings were reviewed which appear within normal limits for the patient's age. Impression: No abnormality is appreciated on noncontrast CT study of the abdomen and pelvis. Evidence of prior cholecystectomy. Diagnostic code #2 MTDD
[2019-08-11] MEDS ORDERED: Sodium Chloride 0.9% 20 ML SDV FLUSH ONE (14:31)
--- NOTE | 2019-08-11 16:09 | EDM.PDOC ---
ED HPI GENERAL MEDICAL PROBLEM - General Chief Complaint: Abdominal Pain Stated Complaint: STOMACH PAIN Time Seen by Provider: 08/11/19 16:08 Source of Information: Reports: Patient - History of Present Illness INITIAL COMMENTS - FREE TEXT/NARRATIVE: HISTORY AND PHYSICAL: History of present illness: [Patient presents with abdominal pain she has a history of chronic abdominal pain over the last 5 years she has history of cholecystectomy and hysterectomy and recent upper and lower endoscopy Dr. Mccain Presents with 8 out of 10 pain in the epigastrium no fever chills or sweats however she did have nausea and vomiting actual chest pain shortness breath headache dizziness or palpitation no bowel or urine symptoms ] Review of systems: As per history of present illness and below otherwise all systems reviewed and negative. Past medical history: As per history of present illness and as reviewed below otherwise noncontributory. Surgical history: As per history of present illness and as reviewed below otherwise noncontributory. Social history: No reported history of drug or alcohol abuse. Family history: As per history of present illness and as reviewed below otherwise noncontributory. Physical exam: HEENT: Atraumatic, normocephalic, pupils reactive, negative for conjunctival pallor or scleral icterus, mucous membranes moist, throat clear, neck supple, nontender, trachea midline. Lungs: Clear to auscultation, breath sounds equal bilaterally, chest nontender. Heart: S1S2, regular, negative for clicks, rubs, or JVD. Abdomen: Soft, nondistended, nontender. Negative for masses or hepatosplenomegaly. Negative for costovertebral tenderness. Pelvis: Stable nontender. Genitourinary: Deferred. Rectal: Deferred. Extremities: Atraumatic, negative for cords or calf pain. Neurovascular unremarkable. Neuro: Awake, alert, oriented. Cranial nerves II through XII unremarkable. Cerebellum unremarkable. Motor and sensory unremarkable throughout. Exam nonfocal. Diagnostics: [CBC CMP troponin lipase CT abdomen pelvis no contrast ] Therapeutics: [ normal saline Zofran Phenergan Our feeding Dilaudid Zofran Tramadol Patient offered observation admission however refused pain has resolved at this time ] Impression: [ nominal pain ] Definitive disposition and diagnosis as appropriate pending reevaluation and review of above. abd Pain Score (Numeric/FACES): 10 - Related Data Allergies Allergy/AdvReac Type Severity Reaction Status Date / Time No Known Allergies Allergy Verified 04/18/19 15:49 Home Meds: Home Meds Albuterol [Ventolin HFA] 1 - 2 puff INH Q4H PRN 04/18/19 [History] Glycopyrrolate/Formoterol Fum [Bevespi Aerosphere Inhaler] 2 puff INH BID [History] Past Medical History - Past Health History Medical/Surgical History: Denies Medical/Surgical History HEENT History: Reports: Other (See Below) Other HEENT History: weaqrs glasses Respiratory History: Reports: COPD, SOB Gastrointestinal History: Reports: GERD, Irritable Bowel Syndrome Genitourinary History: Reports: Renal Calculus Musculoskeletal History: Reports: Back Pain, Chronic Neurological History: Reports: Concussion Psychiatric History: Reports: Anxiety, Depression Endocrine/Metabolic History: Reports: Obesity/BMI 30+ - Infectious Disease History Infectious Disease History: Reports: Chicken Pox - Past Surgical History GI Surgical History: Reports: Cholecystectomy Female Surgical History: Reports: Hysterectomy, Lithotripsy/ESWL Social & Family History - Family History Family Medical History: Noncontributory - Tobacco Use Smoking Status *Q: Current Every Day Smoker Years of Tobacco use: 30 Packs/Tins Daily: 0.5 - Caffeine Use Caffeine Use: Reports: Soda - Recreational Drug Use Recreational Drug Use: Yes Recreational Drug Type: Reports: Marijuana/Hashish Recreational Drug Use Frequency: Socially ED ROS GENERAL - Review of Systems Review Of Systems: See Below ED EXAM, GENERAL - Physical Exam Exam: See Below Course - Vital Signs Last Recorded V/S: Last Vital Signs Temp 98 F 08/11/19 12:28 Pulse 62 08/11/19 14:36 Resp 18 08/11/19 14:36 BP 148/73 H 08/11/19 14:36 Pulse Ox 99 08/11/19 14:36 - Orders/Labs/Meds Labs: Laboratory Tests 08/11/19 08/11/19 08/11/19 Range/Units 10:25 10:25 10:58 WBC 12.01 H (4.0-11.0) K/uL RBC 4.87 (4.30-5.90) M/uL Hgb 15.6 (12.0-16.0) g/dL Hct 46.5 H (36.0-46.0) % MCV 95.5 (80.0-98.0) fL MCH 32.0 (27.0-32.0) pg MCHC 33.5 (31.0-37.0) g/dL RDW Std Deviation 51.4 (28.0-62.0) fl RDW Coeff of Negrita 15 (11.0-15.0) % Plt Count 281 (150-400) K/uL MPV 10.30 (7.40-12.00) fL Neut % (Auto) 78.4 (48.0-80.0) % Lymph % (Auto) 16.7 (16.0-40.0) % [place] % (Auto) 3.2 (0.0-15.0) % Eos % (Auto) 1.5 (0.0-7.0) % Baso % (Auto) 0.2 (0.0-1.5) % Neut # (Auto) 9.4 H (1.4-5.7) K/uL Lymph # (Auto) 2.0 (0.6-2.4) K/uL [place] # (Auto) 0.4 (0.0-0.8) K/uL Eos # (Auto) 0.2 (0.0-0.7) K/uL Baso # (Auto) 0.0 (0.0-0.1) K/uL Nucleated RBC % 0.0 /100WBC Nucleated RBCs # 0 K/uL Sodium 139 (136-145) mmol/L Potassium 4.4 (3.5-5.1) mmol/L Chloride 104 (98-107) mmol/L Carbon Dioxide 24.3 (21.0-32.0) mmol/L BUN 6 L (7.0-18.0) mg/dL Creatinine 0.9 (0.6-1.0) mg/dL Est Cr Clr Drug Dosing 57.30 mL/min Estimated GFR (MDRD) > 60.0 ml/min Glucose 131 H (74-106) mg/dL Calcium 9.1 (8.5-10.1) mg/dL Total Bilirubin 0.7 (0.2-1.0) mg/dL AST 15 (15-37) IU/L ALT 21 (14-63) IU/L Alkaline Phosphatase 80 (46-116) U/L Total Protein 7.4 (6.4-8.2) g/dL Albumin 3.7 (3.4-5.0) g/dL Globulin 3.7 (2.6-4.0) g/dL Albumin/Globulin Ratio 1.0 (0.9-1.6) Lipase 96 (73-393) U/L Urine Color YELLOW Urine Appearance CLEAR Urine pH 6.5 (5.0-8.0) Ur Specific [place] 1.025 (1.001-1.035) Urine Protein NEGATIVE (NEGATIVE) mg/dL Urine Glucose (UA) NEGATIVE (NEGATIVE) mg/dL Urine Ketones NEGATIVE (NEGATIVE) mg/dL Urine Occult Blood NEGATIVE (NEGATIVE) Urine Nitrite NEGATIVE (NEGATIVE) Urine Bilirubin NEGATIVE (NEGATIVE) Urine Urobilinogen 0.2 (<2.0) EU/dL Ur Leukocyte Esterase NEGATIVE (NEGATIVE) Urine HCG, Qual (NEGATIVE) 08/11/19 Range/Units 10:58 WBC (4.0-11.0) K/uL RBC (4.30-5.90) M/uL Hgb (12.0-16.0) g/dL Hct (36.0-46.0) % MCV (80.0-98.0) fL MCH (27.0-32.0) pg MCHC (31.0-37.0) g/dL RDW Std Deviation (28.0-62.0) fl RDW Coeff of Negrita (11.0-15.0) % Plt Count (150-400) K/uL MPV (7.40-12.00) fL Neut % (Auto) (48.0-80.0) % Lymph % (Auto) (16.0-40.0) % [place] % (Auto) (0.0-15.0) % Eos % (Auto) (0.0-7.0) % Baso % (Auto) (0.0-1.5) % Neut # (Auto) (1.4-5.7) K/uL Lymph # (Auto) (0.6-2.4) K/uL [place] # (Auto) (0.0-0.8) K/uL Eos # (Auto) (0.0-0.7) K/uL Baso # (Auto) (0.0-0.1) K/uL Nucleated RBC % /100WBC Nucleated RBCs # K/uL Sodium (136-145) mmol/L Potassium (3.5-5.1) mmol/L Chloride (98-107) mmol/L Carbon Dioxide (21.0-32.0) mmol/L BUN (7.0-18.0) mg/dL Creatinine (0.6-1.0) mg/dL Est Cr Clr Drug Dosing mL/min Estimated GFR (MDRD) ml/min Glucose (74-106) mg/dL Calcium (8.5-10.1) mg/dL Total Bilirubin (0.2-1.0) mg/dL AST (15-37) IU/L ALT (14-63) IU/L Alkaline Phosphatase (46-116) U/L Total Protein (6.4-8.2) g/dL Albumin (3.4-5.0) g/dL Globulin (2.6-4.0) g/dL Albumin/Globulin Ratio (0.9-1.6) Lipase (73-393) U/L Urine Color Urine Appearance Urine pH (5.0-8.0) Ur Specific [place] (1.001-1.035) Urine Protein (NEGATIVE) mg/dL Urine Glucose (UA) (NEGATIVE) mg/dL Urine Ketones (NEGATIVE) mg/dL Urine Occult Blood (NEGATIVE) Urine Nitrite (NEGATIVE) Urine Bilirubin (NEGATIVE) Urine Urobilinogen (<2.0) EU/dL Ur Leukocyte Esterase (NEGATIVE) Urine HCG, Qual NEGATIVE (NEGATIVE) Meds: Medications Discontinued Medications Generic Name Dose Route Start Last Admin Trade Name Freq PRN Reason Stop Dose Admin Hydromorphone HCl 1 mg 08/11/19 14:13 08/11/19 14:27 Dilaudid IVPUSH 08/11/19 14:14 1 mg ONETIME ONE Administration Sodium Chloride 1,000 mls @ 999 mls/hr 08/11/19 10:03 08/11/19 10:29 Normal Saline IV 08/11/19 11:03 999 mls/hr STAT ONE Administration Sodium Chloride Confirm 08/11/19 14:23 08/11/19 14:48 Normal Saline Administered 08/11/19 14:24 Not Given Dose 20 mls @ as directed .ROUTE .STK-MED ONE Ketorolac Tromethamine 30 mg 08/11/19 10:19 08/11/19 10:29 Toradol IVPUSH 08/11/19 10:20 30 mg ONETIME ONE Administration Morphine Sulfate 2 mg 08/11/19 13:02 08/11/19 13:16 Morphine IVPUSH 08/11/19 13:03 2 mg ONETIME ONE Administration Ondansetron HCl 8 mg 08/11/19 10:03 08/11/19 10:29 Zofran IVPUSH 08/11/19 10:04 8 mg ONETIME ONE Administration Pantoprazole Sodium 80 mg 08/11/19 14:21 08/11/19 14:29 Protonix Iv IVPUSH 08/11/19 14:22 80 mg .BOLUS ONE Administration Pantoprazole Sodium Confirm 08/11/19 14:23 08/11/19 14:30 Protonix Iv Administered 08/11/19 14:24 Not Given Dose 80 mg .ROUTE .STK-MED ONE Promethazine HCl 25 mg 08/11/19 14:21 08/11/19 14:25 Phenergan IM 08/11/19 14:22 25 mg ONETIME ONE Administration Promethazine HCl Confirm 08/11/19 14:23 08/11/19 14:30 Phenergan Administered 08/11/19 14:24 Not Given Dose 25 mg .ROUTE .STK-MED ONE Sodium Chloride 20 ml 08/11/19 14:31 08/11/19 14:47 Normal Saline FLUSH 08/11/19 14:32 20 ml ONETIME ONE Administration Departure - Departure Time of Disposition: 16:11 Disposition: Home, Self-Care 01 Condition: Good Clinical Impression: Abdominal pain - Discharge Information Referrals: Ellen Ayala NP [Primary Care Provider] - Forms: ED Department Discharge Additional Instructions: Medication as prescribed Return if symptoms persist or worsen Follow-up with primary care as scheduled on the [facility] [address] [place] [address] The following information is given to patients seen in the emergency department who are being discharged to home. This information is to outline your options for follow-up care. We provide all patients seen in our emergency department with a follow-up referral. The need for follow-up, as well as the timing and circumstances, are variable depending upon the specifics of your emergency department visit. If you don't have a primary care physician on staff, we will provide you with a referral. We always advise you to contact your personal physician following an emergency department visit to inform them of the circumstance of the visit and for follow-up with them and/or the need for any referrals to a consulting specialist. The emergency department will also refer you to a specialist when appropriate. This referral assures that you have the opportunity for follow-up care with a specialist. All of these measure are taken in an effort to provide you with optimal care, which includes your follow-up. Under all circumstances we always encourage you to contact your private physician who remains a resource for coordinating your care. When calling for follow-up care, please make the office aware that this follow-up is from your recent emergency room visit. If for any reason you are refused follow-up, please contact the [facility] emergency department at and asked to speak to the emergency department charge nurse.
== END 2019-08-11 16:23 | disposition home or self-care (01) ==
LOC: MW.ED 09:48
DX: R10.13 Epigastric pain (principal); J44.9 Chronic obstructive pulmonary disease, unspecified; E66.9 Obesity, unspecified; Z68.32 Body mass index [BMI] 32.0-32.9, adult; F17.210 Nicotine dependence, cigarettes, uncomplicated; Z90.49 Acquired absence of other specified parts of digestive tract; Z90.710 Acquired absence of both cervix and uterus; Z79.899 Other long term (current) drug therapy
CPT/HCPCS: 36415; 74176; 80053; 81003; 81025; 83690; 85025; 96361; 96372; 96374; 96375; 99284; C9113; J1170; J1885; J2270; J2405; J2550; J7040

== ENCOUNTER 2019-08-12 14:53 | Observation (INO) | payer MEDICAID ==
[2019-08-12] MEDS ORDERED: Ondansetron 4 MG/2 ML SDV IVPUSH ONE (15:29)
[2019-08-12] MEDS ORDERED: Sodium Chloride 0.9% 1,000 ML IV ONE (15:29)
[2019-08-12] MEDS ORDERED: diphenhydrAMINE 50 MG/ML SDV IVPUSH ONE (15:38)
[2019-08-12] MEDS ORDERED: Metoclopramide 10 MG/2 ML SDV IV ONE (15:38)
--- NOTE | 2019-08-12 15:44 | EDM.PDOC ---
ED HPI GENERAL MEDICAL PROBLEM - General Chief Complaint: Abdominal Pain Stated Complaint: SICK Time Seen by Provider: 08/12/19 15:23 Source of Information: Reports: Patient History Limitations: Reports: No Limitations - History of Present Illness INITIAL COMMENTS - FREE TEXT/NARRATIVE: HISTORY AND PHYSICAL: History of present illness: Patient is a 44-year-old female presents to the ED today with concern of upper abdominal pain and vomiting since this morning. Patient was seen and evaluated yesterday in the ED for the same complaint and did receive full workup including abd/pelvic CT which was unremarkable. Patient states her symptoms today are the exact same as yesterday. Patient states after she was discharged she did feel better and slept throughout the night. Patient states when she woke up this morning she began having the same symptoms. Patient states the pain is in her upper abdomen and is the exact same pain she had evaluated yesterday and she expresses no changes. Patient states her main concern is the vomiting. Patient does have a history of chronic abdominal pain, cholecystectomy , hysterectomy and also has had recent both upper and lower endoscopy which patient states is unremarkable. Patient states she does smoke about half a pack of cigarettes a day and has so for many years. Patient states she also uses recreational marijuana. Patient denies fever, chills, chest pain, shortness of breath, or cough. Denies headache, neck stiff ness, change in vision, syncope, or near syncope. Denies diarrhea, constipation, or dysuria. Has not noted any blood in urine or stool. Review of systems: As per history of present illness and below otherwise all systems reviewed and negative. Past medical history: As per history of present illness and as reviewed below otherwise noncontributory. Surgical history: As per history of present illness and as reviewed below otherwise noncontributory. Social history: See social history for further information Family history: As per history of present illness and as reviewed below otherwise noncontributory. Physical exam: General: Patient is alert, oriented, and in no acute distress. Patient sitting on exam table holding an emesis bag. HEENT: Atraumatic, normocephalic, pupils equal and reactive bilaterally, negative for conjunctival pallor or scleral icterus, mucous membranes moist, TMs normal bilaterally, throat clear, neck supple, nontender, trachea midline. No drooling or trismus noted. No meningeal signs. No hot potato voice noted. Lungs: Clear to auscultation, breath sounds equal bilaterally, chest nontender. Heart: S1S2, regular rate and rhythm without overt murmur Abdomen: Obese, soft, nondistended, mild-moderate pain with palpation of the epigastric area without guarding. Negative rebound. Negative for masses or hepatosplenomegaly. Negative for costovertebral tenderness. Pelvis: Stable nontender. Genitourinary: Deferred. Rectal: Deferred. Skin: Intact, warm, dry. No lesions or rashes noted. Extremities: Atraumatic, negative for cords or calf pain. Neurovascular unremarkable. Neuro: Awake, alert, oriented. Cranial nerves II through XII unremarkable. Cerebellum unremarkable. Motor and sensory unremarkable throughout. Exam nonfocal. Notes: Dr. Lenz verbally involved in patient care. Despite therapeutics today, patient continues to vomit in the ED. Dr. Sánchez consulted on patient and will admit to observation. Voices understanding and is agreeable to plan of care. Denies any further questions or concerns at this time. Diagnostics: CBC, CMP, UA, lipase, urine hCG, Therapeutics: Saline, Zofran, Reglan, Benadryl, Ativan Impression: Intractable vomiting Upper abdominal pain Plan: 1. Admit to observation to Dr. Sánchez Definitive disposition and diagnosis as appropriate pending reevaluation and review of above. general abdomen Pain Score (Numeric/FACES): 10 - Related Data Allergies Allergy/AdvReac Type Severity Reaction Status Date / Time No Known Allergies Allergy Verified 04/18/19 15:49 Home Meds: Home Meds Albuterol [Ventolin HFA] 1 - 2 puff INH Q4H PRN 04/18/19 [History] Glycopyrrolate/Formoterol Fum [Bevespi Aerosphere Inhaler] 2 puff INH BID [History] Past Medical History - Past Health History Medical/Surgical History: Denies Medical/Surgical History HEENT History: Reports: Other (See Below) Other HEENT History: weaqrs glasses Respiratory History: Reports: COPD, SOB Gastrointestinal History: Reports: GERD, Irritable Bowel Syndrome Genitourinary History: Reports: Renal Calculus Musculoskeletal History: Reports: Back Pain, Chronic Neurological History: Reports: Concussion Psychiatric History: Reports: Anxiety, Depression Endocrine/Metabolic History: Reports: Obesity/BMI 30+ - Infectious Disease History Infectious Disease History: Reports: Chicken Pox - Past Surgical History GI Surgical History: Reports: Cholecystectomy Female Surgical History: Reports: Hysterectomy, Lithotripsy/ESWL Social & Family History - Family History Family Medical History: Noncontributory - Caffeine Use Caffeine Use: Reports: Soda ED ROS GENERAL - Review of Systems Review Of Systems: ROS reveals no pertinent complaints other than HPI. ED EXAM, GENERAL - Physical Exam Exam: See Below (See dictation) Course - Vital Signs Last Recorded V/S: Last Vital Signs Temp 96.7 F 08/12/19 15:19 Pulse 89 08/12/19 15:19 Resp 20 08/12/19 15:19 BP 135/80 08/12/19 15:19 Pulse Ox 97 08/12/19 15:19 - Orders/Labs/Meds Orders: Active Orders 24 hr Category Date Time Status Admission Status [Patient Status] [ADT] Stat ADT 08/12/19 18:47 Ordered Labs: Laboratory Tests 08/12/19 08/12/19 08/12/19 Range/Units 16:21 16:21 18:03 WBC 14.62 H (4.0-11.0) K/uL RBC 4.61 (4.30-5.90) M/uL Hgb 14.7 (12.0-16.0) g/dL Hct 44.7 (36.0-46.0) % MCV 97.0 (80.0-98.0) fL MCH 31.9 (27.0-32.0) pg MCHC 32.9 (31.0-37.0) g/dL RDW Std Deviation 52.1 (28.0-62.0) fl RDW Coeff of Negrita 15 (11.0-15.0) % Plt Count 290 (150-400) K/uL MPV 10.10 (7.40-12.00) fL Neut % (Auto) 83.0 H (48.0-80.0) % Lymph % (Auto) 12.9 L (16.0-40.0) % [place] % (Auto) 3.1 (0.0-15.0) % Eos % (Auto) 0.8 (0.0-7.0) % Baso % (Auto) 0.2 (0.0-1.5) % Neut # (Auto) 12.1 H (1.4-5.7) K/uL Lymph # (Auto) 1.9 (0.6-2.4) K/uL [place] # (Auto) 0.5 (0.0-0.8) K/uL Eos # (Auto) 0.1 (0.0-0.7) K/uL Baso # (Auto) 0.0 (0.0-0.1) K/uL Nucleated RBC % 0.0 /100WBC Nucleated RBCs # 0 K/uL Sodium 140 (136-145) mmol/L Potassium 3.8 (3.5-5.1) mmol/L Chloride 104 (98-107) mmol/L Carbon Dioxide 23.0 (21.0-32.0) mmol/L BUN 8 (7.0-18.0) mg/dL Creatinine 0.9 (0.6-1.0) mg/dL Est Cr Clr Drug Dosing 57.30 mL/min Estimated GFR (MDRD) > 60.0 ml/min Glucose 130 H (74-106) mg/dL Calcium 8.5 (8.5-10.1) mg/dL Total Bilirubin 0.5 (0.2-1.0) mg/dL AST 18 (15-37) IU/L ALT 18 (14-63) IU/L Alkaline Phosphatase 73 (46-116) U/L Total Protein 7.0 (6.4-8.2) g/dL Albumin 3.5 (3.4-5.0) g/dL Globulin 3.5 (2.6-4.0) g/dL Albumin/Globulin Ratio 1.0 (0.9-1.6) Lipase 106 (73-393) U/L Urine Color YELLOW Urine Appearance CLEAR Urine pH 6.0 (5.0-8.0) Ur Specific [place] 1.020 (1.001-1.035) Urine Protein NEGATIVE (NEGATIVE) mg/dL Urine Glucose (UA) NEGATIVE (NEGATIVE) mg/dL Urine Ketones 15 H (NEGATIVE) mg/dL Urine Occult Blood TRACE-INTACT H (NEGATIVE) Urine Nitrite NEGATIVE (NEGATIVE) Urine Bilirubin NEGATIVE (NEGATIVE) Urine Urobilinogen 0.2 (<2.0) EU/dL Ur Leukocyte Esterase NEGATIVE (NEGATIVE) Urine RBC 0-2 (0-2/HPF) Urine WBC 0-1 (0-5/HPF) Ur Epithelial Cells FEW (NONE-FEW) Urine Bacteria FEW (NEGATIVE) Urine HCG, Qual (NEGATIVE) 08/12/19 Range/Units 18:03 WBC (4.0-11.0) K/uL RBC (4.30-5.90) M/uL Hgb (12.0-16.0) g/dL Hct (36.0-46.0) % MCV (80.0-98.0) fL MCH (27.0-32.0) pg MCHC (31.0-37.0) g/dL RDW Std Deviation (28.0-62.0) fl RDW Coeff of Negrita (11.0-15.0) % Plt Count (150-400) K/uL MPV (7.40-12.00) fL Neut % (Auto) (48.0-80.0) % Lymph % (Auto) (16.0-40.0) % [place] % (Auto) (0.0-15.0) % Eos % (Auto) (0.0-7.0) % Baso % (Auto) (0.0-1.5) % Neut # (Auto) (1.4-5.7) K/uL Lymph # (Auto) (0.6-2.4) K/uL [place] # (Auto) (0.0-0.8) K/uL Eos # (Auto) (0.0-0.7) K/uL Baso # (Auto) (0.0-0.1) K/uL Nucleated RBC % /100WBC Nucleated RBCs # K/uL Sodium (136-145) mmol/L Potassium (3.5-5.1) mmol/L Chloride (98-107) mmol/L Carbon Dioxide (21.0-32.0) mmol/L BUN (7.0-18.0) mg/dL Creatinine (0.6-1.0) mg/dL Est Cr Clr Drug Dosing mL/min Estimated GFR (MDRD) ml/min Glucose (74-106) mg/dL Calcium (8.5-10.1) mg/dL Total Bilirubin (0.2-1.0) mg/dL AST (15-37) IU/L ALT (14-63) IU/L Alkaline Phosphatase (46-116) U/L Total Protein (6.4-8.2) g/dL Albumin (3.4-5.0) g/dL Globulin (2.6-4.0) g/dL Albumin/Globulin Ratio (0.9-1.6) Lipase (73-393) U/L Urine Color Urine Appearance Urine pH (5.0-8.0) Ur Specific [place] (1.001-1.035) Urine Protein (NEGATIVE) mg/dL Urine Glucose (UA) (NEGATIVE) mg/dL Urine Ketones (NEGATIVE) mg/dL Urine Occult Blood (NEGATIVE) Urine Nitrite (NEGATIVE) Urine Bilirubin (NEGATIVE) Urine Urobilinogen (<2.0) EU/dL Ur Leukocyte Esterase (NEGATIVE) Urine RBC (0-2/HPF) Urine WBC (0-5/HPF) Ur Epithelial Cells (NONE-FEW) Urine Bacteria (NEGATIVE) Urine HCG, Qual NEGATIVE (NEGATIVE) Meds: Medications Discontinued Medications Generic Name Dose Route Start Last Admin Trade Name Freq PRN Reason Stop Dose Admin Diphenhydramine HCl 50 mg 08/12/19 15:38 08/12/19 16:09 Benadryl IVPUSH 08/12/19 15:39 50 mg ONETIME ONE Administration Sodium Chloride 1,000 mls @ 999 mls/hr 08/12/19 15:29 08/12/19 16:09 Normal Saline IV 08/12/19 16:29 999 mls/hr BOLUS ONE Administration Ketorolac Tromethamine 30 mg 08/12/19 16:19 08/12/19 16:51 Toradol IVPUSH 08/12/19 16:20 30 mg ONETIME ONE Administration Lorazepam 1 mg 08/12/19 17:01 08/12/19 17:07 Ativan IVPUSH 08/12/19 17:02 1 mg ONETIME ONE Administration Metoclopramide HCl 10 mg 08/12/19 15:38 08/12/19 16:09 Reglan IV 08/12/19 15:39 10 mg ONETIME ONE Administration Ondansetron HCl 4 mg 08/12/19 15:29 08/12/19 16:09 Zofran IVPUSH 08/12/19 15:30 4 mg ONETIME ONE Administration Departure - Departure Time of Disposition: 18:49 Disposition: Refer to Observation Clinical Impression: Epigastric abdominal pain Intractable vomiting Qualifiers: Vomiting type: unspecified Nausea presence: with nausea Qualified Code(s): R11.2 - Nausea with vomiting, unspecified - Discharge Information Referrals: Ellen Ayala [employer] [Primary Care Provider] - Forms: ED Department Discharge - My Orders Last 24 Hours: My Active Orders 08/12/19 18:47 Admission Status [Patient Status] [ADT] Stat - Assessment/Plan Last 24 Hours: My Active Orders 08/12/19 18:47 Admission Status [Patient Status] [ADT] Stat
[2019-08-12] MEDS ORDERED: Ketorolac 30 MG/ML SDV IVPUSH ONE (16:19)
[2019-08-12 16:51] LABS: BLOOD UREA NITROGEN,BUN 8 mg/dL (7.0-18.0); CHLORIDE,CL 104 mmol/L (98-107); GLUCOSE RANDOM 130 mg/dL (74-106); LIPASE 106 U/L (73-393); POTASSIUM,K 3.8 mmol/L (3.5-5.1); SODIUM,NA 140 mmol/L (136-145)
[2019-08-12] MEDS ORDERED: LORazepam 2 MG/ML SDV IVPUSH ONE (17:01)
[2019-08-12] MEDS ORDERED: Ondansetron 4 MG/2 ML SDV IVPUSH PRN (22:10)
[2019-08-12] MEDS ORDERED: Promethazine 25 MG/ML SDV IM PRN (22:10)
[2019-08-12] MEDS: HYDROmorphone 1 MG/ML Syringe IVPUSH PRN (22:19)
[2019-08-12] MEDS: Sodium Chloride 0.9% 1,000 ML IV SCH (22:25)
--- NOTE | 2019-08-12 22:27 | PCM.HP.2 ---
H&P History of Present Illness - General Date of Service: 08/12/19 Admit Problem/Dx: Admission Diagnosis/Problem Admission Diagnosis/Problem Intractable vomiting with nausea - History of Present Illness Initial Comments - Free Text/Narative: 44 yo female with pmh of colecystectomy, hysteroctomy and chronic abdominal pain. PAtient has had recent colonosocpy and EGD by Dr. Rubio on 04/23/19. PAtient reports epigastric pain, nausea and bilous vomiting. It started when she woke up this morning. She was seen in the ED yesterday for same complaint. CT scan of the abdomen was normal. It is difficult to illicit the chronicity of current symptoms for her interview. general abdomen Pain Score (Numeric/FACES): 8 - Related Data Allergies/Adverse Reactions: Allergies Allergy/AdvReac Type Severity Reaction Status Date / Time No Known Allergies Allergy Verified 08/12/19 19:59 Home Medications: Home Meds Glycopyrrolate/Formoterol Fum [Bevespi Aerosphere Inhaler] 2 puff INH BID [History] Past Medical History - Past Health History Medical/Surgical History: Denies Medical/Surgical History HEENT History: Reports: Other (See Below) Other HEENT History: weaqrs glasses Respiratory History: Reports: COPD, SOB Gastrointestinal History: Reports: GERD, Irritable Bowel Syndrome Genitourinary History: Reports: Renal Calculus Musculoskeletal History: Reports: Back Pain, Chronic Neurological History: Reports: Concussion Psychiatric History: Reports: Anxiety, Depression Endocrine/Metabolic History: Reports: Obesity/BMI 30+ - Infectious Disease History Infectious Disease History: Reports: Chicken Pox - Past Surgical History GI Surgical History: Reports: Cholecystectomy Female Surgical History: Reports: Hysterectomy, Lithotripsy/ESWL Social & Family History - Family History Family Medical History: Noncontributory - Tobacco Use Smoking Status *Q: Current Every Day Smoker Years of Tobacco use: 30 Packs/Tins Daily: 0.5 - Caffeine Use Caffeine Use: Reports: Soda - Recreational Drug Use Recreational Drug Use: No H&P Review of Systems - Review of Systems: Review Of Systems: ROS reveals no pertinent complaints other than HPI. Exam - Exam Exam: See Below - Vital Signs Vital Signs: Last Vital Signs Temp 36.3 C 08/12/19 19:38 Pulse 80 10/01/19 19:38 Resp 18 08/12/19 19:38 BP 121/65 08/12/19 19:38 Pulse Ox 98 08/12/19 19:38 Weight: 84.368 kg - Exam General: Alert, Oriented HEENT: Mucosa Moist & [place] Neck: Supple Lungs: Clear to Auscultation, Normal Respiratory Effort Cardiovascular: Regular Rate, Regular Rhythm GI/Abdominal Exam: Normal Bowel Sounds, Soft, No Organomegaly, No Distention, No Mass. No: Distended, Guarding, Rigid, Rebound Extremities: Non-Tender, No Pedal Edema Skin: Warm, Dry, Intact Neurological: No: Focal Deficit - Patient Data Lab Results Last 24 hrs: Laboratory Results - last 24 hr 08/12/19 08/12/19 08/12/19 Range/Units 16:21 16:21 18:03 WBC 14.62 H (4.0-11.0) K/uL RBC 4.61 (4.30-5.90) M/uL Hgb 14.7 (12.0-16.0) g/dL Hct 44.7 (36.0-46.0) % MCV 97.0 (80.0-98.0) fL MCH 31.9 (27.0-32.0) pg MCHC 32.9 (31.0-37.0) g/dL RDW Std Deviation 52.1 (28.0-62.0) fl RDW Coeff of Negrita 15 (11.0-15.0) % Plt Count 290 (150-400) K/uL MPV 10.10 (7.40-12.00) fL Neut % (Auto) 83.0 H (48.0-80.0) % Lymph % (Auto) 12.9 L (16.0-40.0) % [place] % (Auto) 3.1 (0.0-15.0) % Eos % (Auto) 0.8 (0.0-7.0) % Baso % (Auto) 0.2 (0.0-1.5) % Neut # (Auto) 12.1 H (1.4-5.7) K/uL Lymph # (Auto) 1.9 (0.6-2.4) K/uL [place] # (Auto) 0.5 (0.0-0.8) K/uL Eos # (Auto) 0.1 (0.0-0.7) K/uL Baso # (Auto) 0.0 (0.0-0.1) K/uL Nucleated RBC % 0.0 /100WBC Nucleated RBCs # 0 K/uL Sodium 140 (136-145) mmol/L Potassium 3.8 (3.5-5.1) mmol/L Chloride 104 (98-107) mmol/L Carbon Dioxide 23.0 (21.0-32.0) mmol/L BUN 8 (7.0-18.0) mg/dL Creatinine 0.9 (0.6-1.0) mg/dL Est Cr Clr Drug Dosing 57.30 mL/min Estimated GFR (MDRD) > 60.0 ml/min Glucose 130 H (74-106) mg/dL Calcium 8.5 (8.5-10.1) mg/dL Total Bilirubin 0.5 (0.2-1.0) mg/dL AST 18 (15-37) IU/L ALT 18 (14-63) IU/L Alkaline Phosphatase 73 (46-116) U/L Total Protein 7.0 (6.4-8.2) g/dL Albumin 3.5 (3.4-5.0) g/dL Globulin 3.5 (2.6-4.0) g/dL Albumin/Globulin Ratio 1.0 (0.9-1.6) Lipase 106 (73-393) U/L Urine Color YELLOW Urine Appearance CLEAR Urine pH 6.0 (5.0-8.0) Ur Specific [place] 1.020 (1.001-1.035) Urine Protein NEGATIVE (NEGATIVE) mg/dL Urine Glucose (UA) NEGATIVE (NEGATIVE) mg/dL Urine Ketones 15 H (NEGATIVE) mg/dL Urine Occult Blood TRACE-INTACT H (NEGATIVE) Urine Nitrite NEGATIVE (NEGATIVE) Urine Bilirubin NEGATIVE (NEGATIVE) Urine Urobilinogen 0.2 (<2.0) EU/dL Ur Leukocyte Esterase NEGATIVE (NEGATIVE) Urine RBC 0-2 (0-2/HPF) Urine WBC 0-1 (0-5/HPF) Ur Epithelial Cells FEW (NONE-FEW) Urine Bacteria FEW (NEGATIVE) Urine HCG, Qual (NEGATIVE) 08/12/19 Range/Units 18:03 WBC (4.0-11.0) K/uL RBC (4.30-5.90) M/uL Hgb (12.0-16.0) g/dL Hct (36.0-46.0) % MCV (80.0-98.0) fL MCH (27.0-32.0) pg MCHC (31.0-37.0) g/dL RDW Std Deviation (28.0-62.0) fl RDW Coeff of [place] (11.0-15.0) % Plt Count (150-400) K/uL MPV (7.40-12.00) fL Neut % (Auto) (48.0-80.0) % Lymph % (Auto) (16.0-40.0) % [place] % (Auto) (0.0-15.0) % Eos % (Auto) (0.0-7.0) % Baso % (Auto) (0.0-1.5) % Neut # (Auto) (1.4-5.7) K/uL Lymph # (Auto) (0.6-2.4) K/uL [place] # (Auto) (0.0-0.8) K/uL Eos # (Auto) (0.0-0.7) K/uL Baso # (Auto) (0.0-0.1) K/uL Nucleated RBC % /100WBC Nucleated RBCs # K/uL Sodium (136-145) mmol/L Potassium (3.5-5.1) mmol/L Chloride (98-107) mmol/L Carbon Dioxide (21.0-32.0) mmol/L BUN (7.0-18.0) mg/dL Creatinine (0.6-1.0) mg/dL Est Cr Clr Drug Dosing mL/min Estimated GFR (MDRD) ml/min Glucose (74-106) mg/dL Calcium (8.5-10.1) mg/dL Total Bilirubin (0.2-1.0) mg/dL AST (15-37) IU/L ALT (14-63) IU/L Alkaline Phosphatase (46-116) U/L Total Protein (6.4-8.2) g/dL Albumin (3.4-5.0) g/dL Globulin (2.6-4.0) g/dL Albumin/Globulin Ratio (0.9-1.6) Lipase (73-393) U/L Urine Color Urine Appearance Urine pH (5.0-8.0) Ur Specific [place] (1.001-1.035) Urine Protein (NEGATIVE) mg/dL Urine Glucose (UA) (NEGATIVE) mg/dL Urine Ketones (NEGATIVE) mg/dL Urine Occult Blood (NEGATIVE) Urine Nitrite (NEGATIVE) Urine Bilirubin (NEGATIVE) Urine Urobilinogen (<2.0) EU/dL Ur Leukocyte Esterase (NEGATIVE) Urine RBC (0-2/HPF) Urine WBC (0-5/HPF) Ur Epithelial Cells (NONE-FEW) Urine Bacteria (NEGATIVE) Urine HCG, Qual NEGATIVE (NEGATIVE) Result Diagrams: 08/13/19 04:01 08/13/19 04:01 Problem List Initiated/Reviewed/Updated: Yes Orders Last 24hrs: Active Orders 24 hr Category Date Time Status Admission Status [Patient Status] [ADT] Stat ADT 08/12/19 18:47 Active Antiembolic Devices [RC] PER UNIT ROUTINE Care 08/12/19 22:16 Active EKG 12 Lead [EKG Documentation Completion] [RC] URGENT Care 08/12/19 22:08 Active Oxygen Therapy [RC] PRN Care 08/12/19 22:10 Active Up ad Karolyn [RC] ASDIRECTED Care 08/12/19 22:10 Active VTE/DVT Education [RC] PER UNIT ROUTINE Care 08/12/19 22:10 Active Vital Signs [RC] Q4H Care 08/12/19 22:10 Active Nothing per Oral Now Diet [DIET] Diet 08/12/19 Breakfast Active BASIC METABOLIC PANEL,BMP [CHEM] AM Lab 08/13/19 05:11 Ordered CBC WITH AUTO DIFF [HEME] AM Lab 08/13/19 05:11 Ordered TROPONIN I [CHEM] Q6H Lab 08/12/19 22:07 Ordered TROPONIN I [CHEM] Q6H Lab 08/13/19 04:07 Ordered TROPONIN I [CHEM] Q6H Lab 08/13/19 10:07 Ordered HYDROmorphone [Dilaudid] Med 08/12/19 22:08 Active 1 mg IVPUSH Q3H PRN Ondansetron [Zofran] Med 08/12/19 22:10 Active 4 mg IVPUSH Q4H PRN Promethazine [Phenergan] Med 10/01/19 22:10 Active 25 mg IM Q6H PRN Sodium Chloride 0.9% [Normal Saline] 1,000 ml Med 08/12/19 22:15 Active IV ASDIRECTED Sequential Compression Device [OM.PC] Per Unit Routine Oth 08/12/19 22:11 Ordered Resuscitation Status Routine Resus Stat 08/12/19 22:10 Ordered Medication Orders Hydromorphone HCl (Dilaudid) 1 mg IVPUSH Q3H PRN PRN Reason: Pain Last Admin: 08/12/19 22:19 Dose: 1 mg Sodium Chloride (Normal Saline) 1,000 mls @ 125 mls/hr IV ASDIRECTED MICHAEL Ondansetron HCl (Zofran) 4 mg IVPUSH Q4H PRN PRN Reason: Nausea Promethazine HCl (Phenergan) 25 mg IM Q6H PRN PRN Reason: Nausea Assessment/Plan Comment:: 44 yo female admitted for intractable nausea, vomiting and abdominal pain. This is likely an acute flair of a chronic syndrome of abdominal pain. We will treat supportively with IV fluids, and pain contol.
[2019-08-13] MEDS: HYDROmorphone 1 MG/ML Syringe IVPUSH PRN ×2 (01:26→04:45)
[2019-08-13 04:27] LABS: BLOOD UREA NITROGEN,BUN 9 mg/dL (7.0-18.0); CARBON DIOXIDE,CO2 24.1 mmol/L (21.0-32.0); CHLORIDE,CL 107 mmol/L (98-107); GLUCOSE RANDOM 123 mg/dL (74-106); POTASSIUM,K 4.5 mmol/L (3.5-5.1); SODIUM,NA 142 mmol/L (136-145)
[2019-08-13] MEDS: Sodium Chloride 0.9% 1,000 ML IV SCH (06:42)
--- NOTE | 2019-08-13 10:45 | PCM.PN ---
- General Info Date of Service: 08/13/19 - Review of Systems Systems Review Comment:: abdominal pain improving, no nausea, vomiting, or diarrhea this morning. - Patient Data Vitals - Most Recent: Last Vital Signs Temp 36.2 C 08/13/19 07:00 Pulse 69 08/13/19 07:00 Resp 16 08/13/19 07:00 BP 91/44 L 08/13/19 07:00 Pulse Ox 96 08/13/19 07:00 Weight - Most Recent: 84.368 kg I&O - Last 24 Hours: Intake & Output 08/12/19 08/13/19 08/13/19 22:59 06:59 14:59 Intake Total 780 Output Total 450 Balance 330 Lab Results Last 24 Hours: Laboratory Results - last 24 hr 08/12/19 08/12/19 08/12/19 Range/Units 16:21 16:21 18:03 WBC 14.62 H (4.0-11.0) K/uL RBC 4.61 (4.30-5.90) M/uL Hgb 14.7 (12.0-16.0) g/dL Hct 44.7 (36.0-46.0) % MCV 97.0 (80.0-98.0) fL MCH 31.9 (27.0-32.0) pg MCHC 32.9 (31.0-37.0) g/dL RDW Std Deviation 52.1 (28.0-62.0) fl RDW Coeff of [place] 15 (11.0-15.0) % Plt Count 290 (150-400) K/uL MPV 10.10 (7.40-12.00) fL Neut % (Auto) 83.0 H (48.0-80.0) % Lymph % (Auto) 12.9 L (16.0-40.0) % [place] % (Auto) 3.1 (0.0-15.0) % Eos % (Auto) 0.8 (0.0-7.0) % Baso % (Auto) 0.2 (0.0-1.5) % Neut # (Auto) 12.1 H (1.4-5.7) K/uL Lymph # (Auto) 1.9 (0.6-2.4) K/uL [place] # (Auto) 0.5 (0.0-0.8) K/uL Eos # (Auto) 0.1 (0.0-0.7) K/uL Baso # (Auto) 0.0 (0.0-0.1) K/uL Nucleated RBC % 0.0 /100WBC Nucleated RBCs # 0 K/uL Sodium 140 (136-145) mmol/L Potassium 3.8 (3.5-5.1) mmol/L Chloride 104 (98-107) mmol/L Carbon Dioxide 23.0 (21.0-32.0) mmol/L BUN 8 (7.0-18.0) mg/dL Creatinine 0.9 (0.6-1.0) mg/dL Est Cr Clr Drug Dosing 57.30 mL/min Estimated GFR (MDRD) > 60.0 ml/min Glucose 130 H (74-106) mg/dL Calcium 8.5 (8.5-10.1) mg/dL Total Bilirubin 0.5 (0.2-1.0) mg/dL AST 18 (15-37) IU/L ALT 18 (14-63) IU/L Alkaline Phosphatase 73 (46-116) U/L Troponin I (0.000-0.056) ng/mL Total Protein 7.0 (6.4-8.2) g/dL Albumin 3.5 (3.4-5.0) g/dL Globulin 3.5 (2.6-4.0) g/dL Albumin/Globulin Ratio 1.0 (0.9-1.6) Lipase 106 (73-393) U/L Urine Color YELLOW Urine Appearance CLEAR Urine pH 6.0 (5.0-8.0) Ur Specific [place] 1.020 (1.001-1.035) Urine Protein NEGATIVE (NEGATIVE) mg/dL Urine Glucose (UA) NEGATIVE (NEGATIVE) mg/dL Urine Ketones 15 H (NEGATIVE) mg/dL Urine Occult Blood TRACE-INTACT H (NEGATIVE) Urine Nitrite NEGATIVE (NEGATIVE) Urine Bilirubin NEGATIVE (NEGATIVE) Urine Urobilinogen 0.2 (<2.0) EU/dL Ur Leukocyte Esterase NEGATIVE (NEGATIVE) Urine RBC 0-2 (0-2/HPF) Urine WBC 0-1 (0-5/HPF) Ur Epithelial Cells FEW (NONE-FEW) Urine Bacteria FEW (NEGATIVE) Urine HCG, Qual (NEGATIVE) 10/01/19 10/01/19 10/02/19 Range/Units 18:03 22:19 04:01 WBC (4.0-11.0) K/uL RBC (4.30-5.90) M/uL Hgb (12.0-16.0) g/dL Hct (36.0-46.0) % MCV (80.0-98.0) fL MCH (27.0-32.0) pg MCHC (31.0-37.0) g/dL RDW Std Deviation (28.0-62.0) fl RDW Coeff of [place] (11.0-15.0) % Plt Count (150-400) K/uL MPV (7.40-12.00) fL Neut % (Auto) (48.0-80.0) % Lymph % (Auto) (16.0-40.0) % [place] % (Auto) (0.0-15.0) % Eos % (Auto) (0.0-7.0) % Baso % (Auto) (0.0-1.5) % Neut # (Auto) (1.4-5.7) K/uL Lymph # (Auto) (0.6-2.4) K/uL [place] # (Auto) (0.0-0.8) K/uL Eos # (Auto) (0.0-0.7) K/uL Baso # (Auto) (0.0-0.1) K/uL Nucleated RBC % /100WBC Nucleated RBCs # K/uL Sodium (136-145) mmol/L Potassium (3.5-5.1) mmol/L Chloride (98-107) mmol/L Carbon Dioxide (21.0-32.0) mmol/L BUN (7.0-18.0) mg/dL Creatinine (0.6-1.0) mg/dL Est Cr Clr Drug Dosing mL/min Estimated GFR (MDRD) ml/min Glucose (74-106) mg/dL Calcium (8.5-10.1) mg/dL Total Bilirubin (0.2-1.0) mg/dL AST (15-37) IU/L ALT (14-63) IU/L Alkaline Phosphatase (46-116) U/L Troponin I < 0.050 < 0.050 (0.000-0.056) ng/mL Total Protein (6.4-8.2) g/dL Albumin (3.4-5.0) g/dL Globulin (2.6-4.0) g/dL Albumin/Globulin Ratio (0.9-1.6) Lipase (73-393) U/L Urine Color Urine Appearance Urine pH (5.0-8.0) Ur Specific [place] (1.001-1.035) Urine Protein (NEGATIVE) mg/dL Urine Glucose (UA) (NEGATIVE) mg/dL Urine Ketones (NEGATIVE) mg/dL Urine Occult Blood (NEGATIVE) Urine Nitrite (NEGATIVE) Urine Bilirubin (NEGATIVE) Urine Urobilinogen (<2.0) EU/dL Ur Leukocyte Esterase (NEGATIVE) Urine RBC (0-2/HPF) Urine WBC (0-5/HPF) Ur Epithelial Cells (NONE-FEW) Urine Bacteria (NEGATIVE) Urine HCG, Qual NEGATIVE (NEGATIVE) 08/13/19 08/13/19 Range/Units 04:01 04:01 WBC 14.41 H (4.0-11.0) K/uL RBC 4.60 (4.30-5.90) M/uL Hgb 14.5 (12.0-16.0) g/dL Hct 44.3 (36.0-46.0) % MCV 96.3 (80.0-98.0) fL MCH 31.5 (27.0-32.0) pg MCHC 32.7 (31.0-37.0) g/dL RDW Std Deviation 50.2 (28.0-62.0) fl RDW Coeff of [place] 14 (11.0-15.0) % Plt Count 248 (150-400) K/uL MPV 10.10 (7.40-12.00) fL Neut % (Auto) 90.4 H (48.0-80.0) % Lymph % (Auto) 7.9 L (16.0-40.0) % [place] % (Auto) 1.6 (0.0-15.0) % Eos % (Auto) 0.0 (0.0-7.0) % Baso % (Auto) 0.1 (0.0-1.5) % Neut # (Auto) 13.0 H (1.4-5.7) K/uL Lymph # (Auto) 1.1 (0.6-2.4) K/uL [place] # (Auto) 0.2 (0.0-0.8) K/uL Eos # (Auto) 0.0 (0.0-0.7) K/uL Baso # (Auto) 0.0 (0.0-0.1) K/uL Nucleated RBC % 0.0 /100WBC Nucleated RBCs # 0 K/uL Sodium 142 (136-145) mmol/L Potassium 4.5 (3.5-5.1) mmol/L Chloride 107 (98-107) mmol/L Carbon Dioxide 24.1 (21.0-32.0) mmol/L BUN 9 (7.0-18.0) mg/dL Creatinine 0.8 (0.6-1.0) mg/dL Est Cr Clr Drug Dosing 64.46 mL/min Estimated GFR (MDRD) > 60.0 ml/min Glucose 123 H (74-106) mg/dL Calcium 8.0 L (8.5-10.1) mg/dL Total Bilirubin (0.2-1.0) mg/dL AST (15-37) IU/L ALT (14-63) IU/L Alkaline Phosphatase (46-116) U/L Troponin I (0.000-0.056) ng/mL Total Protein (6.4-8.2) g/dL Albumin (3.4-5.0) g/dL Globulin (2.6-4.0) g/dL Albumin/Globulin Ratio (0.9-1.6) Lipase (73-393) U/L Urine Color Urine Appearance Urine pH (5.0-8.0) Ur Specific [place] (1.001-1.035) Urine Protein (NEGATIVE) mg/dL Urine Glucose (UA) (NEGATIVE) mg/dL Urine Ketones (NEGATIVE) mg/dL Urine Occult Blood (NEGATIVE) Urine Nitrite (NEGATIVE) Urine Bilirubin (NEGATIVE) Urine Urobilinogen (<2.0) EU/dL Ur Leukocyte Esterase (NEGATIVE) Urine RBC (0-2/HPF) Urine WBC (0-5/HPF) Ur Epithelial Cells (NONE-FEW) Urine Bacteria (NEGATIVE) Urine HCG, Qual (NEGATIVE) Med Orders - Current: Current Medications Sodium Chloride (Normal Saline) 1,000 mls @ 125 mls/hr IV ASDIRECTED MICHAEL Last Admin: 08/13/19 06:42 Dose: 125 mls/hr Ondansetron HCl (Zofran) 4 mg IVPUSH Q4H PRN PRN Reason: Nausea Promethazine HCl (Phenergan) 25 mg IM Q6H PRN PRN Reason: Nausea Discontinued Medications Diphenhydramine HCl (Benadryl) 50 mg IVPUSH ONETIME ONE Stop: 08/12/19 15:39 Last Admin: 08/12/19 16:09 Dose: 50 mg Hydromorphone HCl (Dilaudid) 1 mg IVPUSH Q3H PRN PRN Reason: Pain Last Admin: 08/13/19 04:45 Dose: 1 mg Sodium Chloride (Normal Saline) 1,000 mls @ 999 mls/hr IV BOLUS ONE Stop: 08/12/19 16:29 Last Admin: 08/12/19 16:09 Dose: 999 mls/hr Ketorolac Tromethamine (Toradol) 30 mg IVPUSH ONETIME ONE Stop: 08/12/19 16:20 Last Admin: 08/12/19 16:51 Dose: 30 mg Lorazepam (Ativan) 1 mg IVPUSH ONETIME ONE Stop: 08/12/19 17:02 Last Admin: 08/12/19 17:07 Dose: 1 mg Metoclopramide HCl (Reglan) 10 mg IV ONETIME ONE Stop: 08/12/19 15:39 Last Admin: 08/12/19 16:09 Dose: 10 mg Ondansetron HCl (Zofran) 4 mg IVPUSH ONETIME ONE Stop: 08/12/19 15:30 Last Admin: 08/12/19 16:09 Dose: 4 mg - Exam General: Alert, Oriented Neck: Supple Lungs: Clear to Auscultation, Normal Respiratory Effort GI/Abdominal Exam: Soft, Non-Tender Extremities: Non-Tender, No Pedal Edema Skin: Warm, Dry, Intact - Problem List Review Problem List Initiated/Reviewed/Updated: Yes - My Orders Last 24 Hours: My Active Orders 08/12/19 22:10 Oxygen Therapy [RC] PRN Up ad Karolyn [RC] ASDIRECTED VTE/DVT Education [RC] PER UNIT ROUTINE Vital Signs [RC] Q4H Ondansetron [Zofran] 4 mg IVPUSH Q4H PRN Promethazine [Phenergan] 25 mg IM Q6H PRN Resuscitation Status Routine 08/12/19 22:11 Sequential Compression Device [OM.PC] Per Unit Routine 08/12/19 22:15 Sodium Chloride 0.9% [Normal Saline] 1,000 ml IV ASDIRECTED 08/12/19 22:16 Antiembolic Devices [RC] PER UNIT ROUTINE 08/13/19 10:07 TROPONIN I [CHEM] Q6H 08/14/19 05:11 CBC WITH AUTO DIFF [HEME] AM CMP [COMPREHENSIVE METABOLIC PN,CMP] [CHEM] AM - Plan Plan:: 44 yo female admitted for intractable nausea, vomiting and abdominal pain. This is likely an acute flare of a chronic syndrome of abdominal pain. Patient is feeling better so will start a diet.
[2019-08-13] MEDS ORDERED: Acetaminophen 325 MG Tab PO ONE (14:55)
--- NOTE | 2019-08-16 20:02 | PCM.DCSUM1 ---
Discharge Summary - Discharge Data Discharge Date: 08/13/19 Discharge Disposition: Home, Self-Care 01 Condition: Stable - Referral to Home Health Primary Care Physician: Ellen Ayala NP - Patient Summary/Data Hospital Course: 44 yo female with pmh of colecystectomy, hysteroctomy and chronic abdominal pain who presented with complaints of abdominal pain. Patient reports epigastric pain, nausea and bilous vomiting for past several weeks but worse on the day of admission. CT scan of the abdomen a day before admission was normal. She was admitted and received IV fluids, antiemetics and dilaudid. She did have some improvement in her abdominal pain and was requesting discharge. Patient was discharge home to have follow up with [facility]. - Discharge Plan Home Medications: Home Meds RX: Glycopyrrolate/Formoterol Fum [Bevespi Aerosphere Inhaler] 2 puff INH BID [History] Patient Handouts: Abdominal Pain, Adult, Nausea and Vomiting, Adult, Easy-to- Read Referrals: [facility] [Outside] Shannan Ruiz MD [Ordering Only Provider] - 08/25/19 3:00 pm Ellen Ayala NP [Primary Care Provider] - 08/29/19 8:30 am - Discharge Summary/Plan Comment DC Time >30 min.: No - Patient Data Vitals - Most Recent: Last Vital Signs Temp 37.1 C 08/13/19 12:00 Pulse 80 08/13/19 12:00 Resp 18 08/13/19 12:00 BP 99/59 L 08/13/19 12:00 Pulse Ox 94 L 08/13/19 12:00 Weight - Most Recent: 84.368 kg Med Orders - Current: Current Medications Discontinued Medications Acetaminophen (Tylenol) 650 mg PO NOW ONE Stop: 08/13/19 14:56 Last Admin: 08/13/19 15:01 Dose: 650 mg Diphenhydramine HCl (Benadryl) 50 mg IVPUSH ONETIME ONE Stop: 08/12/19 15:39 Last Admin: 08/12/19 16:09 Dose: 50 mg Hydromorphone HCl (Dilaudid) 1 mg IVPUSH Q3H PRN PRN Reason: Pain Last Admin: 08/13/19 04:45 Dose: 1 mg Sodium Chloride (Normal Saline) 1,000 mls @ 999 mls/hr IV BOLUS ONE Stop: 08/12/19 16:29 Last Admin: 08/12/19 16:09 Dose: 999 mls/hr Sodium Chloride (Normal Saline) 1,000 mls @ 125 mls/hr IV ASDIRECTED MICHAEL Last Admin: 08/13/19 06:42 Dose: 125 mls/hr Ketorolac Tromethamine (Toradol) 30 mg IVPUSH ONETIME ONE Stop: 08/12/19 16:20 Last Admin: 08/12/19 16:51 Dose: 30 mg Lorazepam (Ativan) 1 mg IVPUSH ONETIME ONE Stop: 08/12/19 17:02 Last Admin: 08/12/19 17:07 Dose: 1 mg Metoclopramide HCl (Reglan) 10 mg IV ONETIME ONE Stop: 08/12/19 15:39 Last Admin: 08/12/19 16:09 Dose: 10 mg Ondansetron HCl (Zofran) 4 mg IVPUSH ONETIME ONE Stop: 08/12/19 15:30 Last Admin: 08/12/19 16:09 Dose: 4 mg Ondansetron HCl (Zofran) 4 mg IVPUSH Q4H PRN PRN Reason: Nausea Promethazine HCl (Phenergan) 25 mg IM Q6H PRN PRN Reason: Nausea
== END 2019-08-13 15:27 | disposition home or self-care (01) ==
LOC: MW.ED 14:53 → MW.MS 18:47
PROVIDERS: ADMIT Internal Medicine; ATTEND Internal Medicine
DX: R11.2 Nausea with vomiting, unspecified (principal); K21.9 Gastro-esophageal reflux disease without esophagitis; J44.9 Chronic obstructive pulmonary disease, unspecified; F17.210 Nicotine dependence, cigarettes, uncomplicated; E66.9 Obesity, unspecified; Z90.49 Acquired absence of other specified parts of digestive tract; Z90.710 Acquired absence of both cervix and uterus; Z68.36 Body mass index [BMI] 36.0-36.9, adult
CPT/HCPCS: 36415; 80048; 80053; 81001; 81025; 83690; 84484; 85025; 96361; 96374; 96375; 99284; A9270; J1170; J1200; J1885; J2060; J2405; J2765; J7040

== ENCOUNTER 2019-08-25 15:31 | Observation (INO) | payer MEDICAID ==
[2019-08-25] MEDS ORDERED: Ondansetron 4 MG/2 ML SDV IVPUSH ONE (15:43)
[2019-08-25] MEDS ORDERED: Sodium Chloride 0.9% 1,000 ML IV ONE ×2 (15:43→18:26)
--- NOTE | 2019-08-25 15:51 | EDM.PDOC ---
ED HPI GENERAL MEDICAL PROBLEM - General Chief Complaint: Abdominal Pain Stated Complaint: LOW BLOOD COUNT Time Seen by Provider: 08/25/19 15:38 Source of Information: Reports: Patient History Limitations: Reports: No Limitations - History of Present Illness INITIAL COMMENTS - FREE TEXT/NARRATIVE: HISTORY AND PHYSICAL: History of present illness: Patient is a 44-year-old female, who is familiar to me, presents to the ED today after a visit with a GI specialist in [place]. Patient states she was in [place] earlier today and she was driving home and when she got to the [facility] , the GI specialist called her and told her she needed to go to the emergency room because she had an elevated white count at about 16. Patient states she is having upper abdominal pain which has been chronic in nature and unchanged from her workup here prior on 08/12/19 and when she was admitted. Patient states she went to follow up with the GI specialist for her pain. Patient has a history of chronic abdominal pain, cholecystectomy, and hysterectomy. Patient denies fever, chills, chest pain, shortness of breath, or cough. Denies headache, neck stiff ness, change in vision, syncope, or near syncope. Denies nausea, vomiting, abdominal pain, diarrhea, constipation, or dysuria. Has not noted any blood in urine or stool. Patient has been eating and drinking appropriately. Review of systems: As per history of present illness and below otherwise all systems reviewed and negative. Past medical history: As per history of present illness and as reviewed below otherwise noncontributory. Surgical history: As per history of present illness and as reviewed below otherwise noncontributory. Social history: See social history for further information Family history: As per history of present illness and as reviewed below otherwise noncontributory. Physical exam: General: Patient is alert, oriented, and in no acute distress. Patient laying comfortably on exam table but anxious appearing. HEENT: Atraumatic, normocephalic, pupils equal and reactive bilaterally, negative for conjunctival pallor or scleral icterus, mucous membranes moist, TMs normal bilaterally, throat clear, neck supple, nontender, trachea midline. No drooling or trismus noted. No meningeal signs. No hot potato voice noted. Lungs: Clear to auscultation, breath sounds equal bilaterally, chest nontender. Heart: S1S2, regular rate and rhythm without overt murmur Abdomen: Soft, nondistended. Moderate pain to palpation of the epigastric area without guarding or rebound. Negative for masses or hepatosplenomegaly. Negative for costovertebral tenderness. Pelvis: Stable nontender. Genitourinary: Deferred. Rectal: Deferred. Skin: Intact, warm, dry. No lesions or rashes noted. Extremities: Atraumatic, negative for cords or calf pain. Neurovascular unremarkable. Neuro: Awake, alert, oriented. Cranial nerves II through XII unremarkable. Cerebellum unremarkable. Motor and sensory unremarkable throughout. Exam nonfocal. Notes: Dr. Bailey verbally involved in patient care. general surgery, and Dr. Sánchez, hospitalist were consulted on patient and will admit to hospitalist with consult to general surgery. Voices understanding and is agreeable to plan of care. Denies any further questions or concerns at this time. Diagnostics: CBC, CMP, UA, EKG, chest x-ray, lipase, abd/pelvic CT w contrast, blood cultures , lactate Therapeutics: Saline, Zofran, Ativan Impression: Abdominal pain Leukocytosis Dehydration Plan: 1. Admit to observation to Dr. Sánchez. Definitive disposition and diagnosis as appropriate pending reevaluation and review of above. epigastric Pain Score (Numeric/FACES): 10 - Related Data Allergies Allergy/AdvReac Type Severity Reaction Status Date / Time No Known Allergies Allergy Verified 08/25/19 15:44 Home Meds: Home Meds Glycopyrrolate/Formoterol Fum [Bevespi Aerosphere Inhaler] 2 puff INH BID [History] Escitalopram Oxalate [Lexapro] 0 mg PO ASDIRECTED PRN 08/25/19 [History] Past Medical History - Past Health History Medical/Surgical History: Denies Medical/Surgical History HEENT History: Reports: Impaired Vision, Other (See Below) Other HEENT History: wears glasses Respiratory History: Reports: COPD, SOB Gastrointestinal History: Reports: GERD, Irritable Bowel Syndrome Genitourinary History: Reports: Renal Calculus Musculoskeletal History: Reports: Back Pain, Chronic Neurological History: Reports: Concussion Psychiatric History: Reports: Anxiety, Depression Endocrine/Metabolic History: Reports: Obesity/BMI 30+ - Infectious Disease History Infectious Disease History: Reports: Chicken Pox - Past Surgical History GI Surgical History: Reports: Cholecystectomy Female Surgical History: Reports: Hysterectomy, Lithotripsy/ESWL Social & Family History - Family History Family Medical History: Noncontributory - Tobacco Use Smoking Status *Q: Current Every Day Smoker Years of Tobacco use: 20 Packs/Tins Daily: 1 - Caffeine Use Caffeine Use: Reports: Soda - Recreational Drug Use Recreational Drug Use: Yes Drug Use in Last 12 Months: Yes Recreational Drug Type: Reports: Marijuana/Hashish Recreational Drug Use Frequency: Rarely ED ROS GENERAL - Review of Systems Review Of Systems: ROS reveals no pertinent complaints other than HPI. ED EXAM, GENERAL - Physical Exam Exam: See Below (see dictation) Course - Vital Signs Last Recorded V/S: Last Vital Signs Temp 96.8 F 08/25/19 15:35 Pulse 85 08/25/19 18:28 Resp 18 08/25/19 18:28 BP 161/110 H 08/25/19 18:28 Pulse Ox 97 08/25/19 18:28 - Orders/Labs/Meds Orders: Active Orders 24 hr Category Date Time Status Admission Status [Patient Status] [ADT] Stat ADT 08/25/19 19:06 Ordered EKG Documentation Completion [RC] STAT Care 08/25/19 15:50 Active CULTURE BLOOD [BC] Stat Lab 08/25/19 18:43 Received CULTURE BLOOD [BC] Stat Lab 08/25/19 18:50 Results Sodium Chloride 0.9% [Normal Saline] 1,000 ml Med 08/25/19 18:26 Active IV STAT Blood Culture x2 Reflex Set [OM.PC] Stat Oth 08/25/19 18:27 Ordered Medication Orders Sodium Chloride (Normal Saline) 1,000 mls @ 999 mls/hr IV STAT ONE Stop: 08/25/19 19:26 Last Admin: 08/25/19 18:56 Dose: 999 mls/hr Labs: Laboratory Tests 08/25/19 08/25/19 08/25/19 Range/Units 16:13 16:13 17:10 WBC 18.52 H (4.0-11.0) K/uL RBC 5.12 (4.30-5.90) M/uL Hgb 16.4 H (12.0-16.0) g/dL Hct 49.1 H (36.0-46.0) % MCV 95.9 (80.0-98.0) fL MCH 32.0 (27.0-32.0) pg MCHC 33.4 (31.0-37.0) g/dL RDW Std Deviation 49.7 (28.0-62.0) fl RDW Coeff of Negrita 14 (11.0-15.0) % Plt Count 299 (150-400) K/uL MPV 10.40 (7.40-12.00) fL Neut % (Auto) 96.9 H (48.0-80.0) % Lymph % (Auto) 2.5 L (16.0-40.0) % [place] % (Auto) 0.5 (0.0-15.0) % Eos % (Auto) 0.0 (0.0-7.0) % Baso % (Auto) 0.1 (0.0-1.5) % Neut # (Auto) 18.0 H (1.4-5.7) K/uL Lymph # (Auto) 0.5 L (0.6-2.4) K/uL [place] # (Auto) 0.1 (0.0-0.8) K/uL Eos # (Auto) 0.0 (0.0-0.7) K/uL Baso # (Auto) 0.0 (0.0-0.1) K/uL Nucleated RBC % 0.0 /100WBC Nucleated RBCs # 0 K/uL Lactate (0.20-2.00) mmol/L Sodium 141 (136-145) mmol/L Potassium 4.3 (3.5-5.1) mmol/L Chloride 103 (98-107) mmol/L Carbon Dioxide 25.9 (21.0-32.0) mmol/L BUN 11 (7.0-18.0) mg/dL Creatinine 1.0 (0.6-1.0) mg/dL Est Cr Clr Drug Dosing 51.57 mL/min Estimated GFR (MDRD) > 60.0 ml/min Glucose 151 H (74-106) mg/dL Calcium 9.5 (8.5-10.1) mg/dL Total Bilirubin 0.4 (0.2-1.0) mg/dL AST 12 L (15-37) IU/L ALT 22 (14-63) IU/L Alkaline Phosphatase 89 (46-116) U/L Total Protein 7.8 (6.4-8.2) g/dL Albumin 4.0 (3.4-5.0) g/dL Globulin 3.8 (2.6-4.0) g/dL Albumin/Globulin Ratio 1.1 (0.9-1.6) Lipase 45 L (73-393) U/L Urine Color YELLOW Urine Appearance CLEAR Urine pH 6.5 (5.0-8.0) Ur Specific [place] 1.020 (1.001-1.035) Urine Protein NEGATIVE (NEGATIVE) mg/dL Urine Glucose (UA) NEGATIVE (NEGATIVE) mg/dL Urine Ketones >=80 (NEGATIVE) mg/dL Urine Occult Blood NEGATIVE (NEGATIVE) Urine Nitrite NEGATIVE (NEGATIVE) Urine Bilirubin SMALL H (NEGATIVE) Urine Ictotest NEGATIVE Urine Urobilinogen 0.2 (<2.0) EU/dL Ur Leukocyte Esterase NEGATIVE (NEGATIVE) 08/25/19 Range/Units 18:50 WBC (4.0-11.0) K/uL RBC (4.30-5.90) M/uL Hgb (12.0-16.0) g/dL Hct (36.0-46.0) % MCV (80.0-98.0) fL MCH (27.0-32.0) pg MCHC (31.0-37.0) g/dL RDW Std Deviation (28.0-62.0) fl RDW Coeff of Negrita (11.0-15.0) % Plt Count (150-400) K/uL MPV (7.40-12.00) fL Neut % (Auto) (48.0-80.0) % Lymph % (Auto) (16.0-40.0) % [place] % (Auto) (0.0-15.0) % Eos % (Auto) (0.0-7.0) % Baso % (Auto) (0.0-1.5) % Neut # (Auto) (1.4-5.7) K/uL Lymph # (Auto) (0.6-2.4) K/uL [place] # (Auto) (0.0-0.8) K/uL Eos # (Auto) (0.0-0.7) K/uL Baso # (Auto) (0.0-0.1) K/uL Nucleated RBC % /100WBC Nucleated RBCs # K/uL Lactate 0.7 (0.20-2.00) mmol/L Sodium (136-145) mmol/L Potassium (3.5-5.1) mmol/L Chloride (98-107) mmol/L Carbon Dioxide (21.0-32.0) mmol/L BUN (7.0-18.0) mg/dL Creatinine (0.6-1.0) mg/dL Est Cr Clr Drug Dosing mL/min Estimated GFR (MDRD) ml/min Glucose (74-106) mg/dL Calcium (8.5-10.1) mg/dL Total Bilirubin (0.2-1.0) mg/dL AST (15-37) IU/L ALT (14-63) IU/L Alkaline Phosphatase (46-116) U/L Total Protein (6.4-8.2) g/dL Albumin (3.4-5.0) g/dL Globulin (2.6-4.0) g/dL Albumin/Globulin Ratio (0.9-1.6) Lipase (73-393) U/L Urine Color Urine Appearance Urine pH (5.0-8.0) Ur Specific [place] (1.001-1.035) Urine Protein (NEGATIVE) mg/dL Urine Glucose (UA) (NEGATIVE) mg/dL Urine Ketones (NEGATIVE) mg/dL Urine Occult Blood (NEGATIVE) Urine Nitrite (NEGATIVE) Urine Bilirubin (NEGATIVE) Urine Ictotest Urine Urobilinogen (<2.0) EU/dL Ur Leukocyte Esterase (NEGATIVE) Meds: Medications Generic Name Dose Route Start Last Admin Trade Name Freq PRN Reason Stop Dose Admin Sodium Chloride 1,000 mls @ 999 mls/hr 08/25/19 18:26 08/25/19 18:56 Normal Saline IV 08/25/19 19:26 999 mls/hr STAT ONE Administration Discontinued Medications Generic Name Dose Route Start Last Admin Trade Name Freq PRN Reason Stop Dose Admin Sodium Chloride 1,000 mls @ 999 mls/hr 08/25/19 15:43 08/25/19 16:13 Normal Saline IV 08/25/19 16:43 999 mls/hr BOLUS ONE Administration Iopamidol 100 ml 08/25/19 17:32 08/25/19 17:32 Isovue Multipack-370 (76%) IVPUSH 08/25/19 17:33 100 ml ONETIME STA Administration Lorazepam 1 mg 08/25/19 15:56 08/25/19 16:14 Ativan IVPUSH 08/25/19 15:57 1 mg ONETIME ONE Administration Ondansetron HCl 4 mg 08/25/19 15:43 08/25/19 16:14 Zofran IVPUSH 08/25/19 15:44 4 mg ONETIME ONE Administration Departure - Departure Time of Disposition: 19:07 Disposition: Refer to Observation Clinical Impression: Abdominal pain Qualifiers: Abdominal location: epigastric Qualified Code(s): R10.13 - Epigastric pain Leukocytosis Qualifiers: Leukocytosis type: unspecified Qualified Code(s): D72.829 - Elevated white blood cell count, unspecified - Discharge Information Referrals: Ellen Ayala MANAGER INSTALLATION [Primary Care Provider] - Forms: ED Department Discharge - My Orders Last 24 Hours: My Active Orders 08/25/19 15:50 EKG Documentation Completion [RC] STAT 08/25/19 18:26 Sodium Chloride 0.9% [Normal Saline] 1,000 ml IV STAT 08/25/19 18:27 Blood Culture x2 Reflex Set [OM.PC] Stat 08/25/19 18:43 CULTURE BLOOD [BC] Stat 08/25/19 18:50 CULTURE BLOOD [BC] Stat 08/25/19 19:06 Admission Status [Patient Status] [ADT] Stat - Assessment/Plan Last 24 Hours: My Active Orders 08/25/19 15:50 EKG Documentation Completion [RC] STAT 08/25/19 18:26 Sodium Chloride 0.9% [Normal Saline] 1,000 ml IV STAT 08/25/19 18:27 Blood Culture x2 Reflex Set [OM.PC] Stat 08/25/19 18:43 CULTURE BLOOD [BC] Stat 08/25/19 18:50 CULTURE BLOOD [BC] Stat 08/25/19 19:06 Admission Status [Patient Status] [ADT] Stat
[2019-08-25] MEDS ORDERED: LORazepam 2 MG/ML SDV IVPUSH ONE (15:56)
[2019-08-25 16:56] LABS: BLOOD UREA NITROGEN,BUN 11 mg/dL (7.0-18.0); CARBON DIOXIDE,CO2 25.9 mmol/L (21.0-32.0); CHLORIDE,CL 103 mmol/L (98-107); GLUCOSE RANDOM 151 mg/dL (74-106); LIPASE 45 U/L (73-393); POTASSIUM,K 4.3 mmol/L (3.5-5.1); SODIUM,NA 141 mmol/L (136-145)
[2019-08-25] MEDS ORDERED: Iopamidol 755 MG/ML 500 ML Multipack Bottle IVPUSH STA (17:32)
--- NOTE | 2019-08-25 17:44 | CR ---
INDICATION: Chest pain and shortness of breath. COMPARISON: Previous report from 08/06/2018 FINDINGS: PA and lateral views of the chest were obtained. The lungs remain clear. No focal or diffuse infiltrates are present. The heart remains normal in size. The mediastinum is normal in appearance. The osseous structures are normal in appearance for the patient`s age. Clips are seen in the right upper quadrant consistent with cholecystectomy. IMPRESSION: Normal chest two views. Dictated by Spenser Waldrop MD @ Aug 25 2019 5:41PM Signed by Dr. Spenser Waldrop @ Aug 25 2019 5:42PM
--- NOTE | 2019-08-25 18:16 | CT ---
INDICATION: Upper abdominal pain and leukocytosis. COMPARISON: 04/17/2019 TECHNIQUE: CT examination of the abdomen and pelvis was performed with the uneventful intravenous administration of 100 cc of Isovue 370 while 3 mm thick axial sections were obtained from the lung bases through the pubic symphysis. Oral contrast was not administered. Please note that all CT scans at this facility use dose modulation, iterative reconstruction, and/or weight-based dosing when appropriate to reduce radiation dose to as low as reasonably achievable. FINDINGS: In the abdomen, the liver, spleen, pancreas, and right adrenal are normal in appearance. There is new mild inflammatory stranding around the otherwise normal-appearing left adrenal gland. There is no sign of enlargement or high-density within the adrenal gland to suggest adrenal hemorrhage. This inflammatory change appears to be centered upon the adrenal and not the adjacent pancreatic tail or superior left kidney. The kidneys are normal in appearance. Clips are again seen in the gall bladder fossa from cholecystectomy. The abdominal aorta is normal in caliber with no sign of dilatation. There is no sign of retroperitoneal mass or adenopathy. The stomach, loops of small bowel, and colon in the abdomen are normal in appearance. In the pelvis, the appendix is nonvisualized, but there is no sign of an inflammatory process in the area of the appendix. The loops of small bowel and colon in the pelvis are normal in appearance. The uterus is again seen to be absent, consistent with hysterectomy. Low-density regions are seen in both adrenal glands consistent with small cysts, 1.9 centimeters in diameter on the left and 1.3 centimeters in diameter on the right. The cyst on the left is similar to the previous CT. The cyst on the right is new. The urinary bladder is normal in appearance. There is no sign of pelvic or inguinal mass or adenopathy. The lung bases are clear. Again seen is minimal anterior wedging of the T11 vertebral body with mild sclerosis of the inferior T11 vertebral body adjacent to the anterior disc space. The osseous structures are otherwise normal in appearance for the patient`s age. IMPRESSION: CT of the abdomen shows new mild inflammatory stranding around the otherwise normal appearing left adrenal gland. The adrenal glands shows no sign of increased density or increased size to suggest adrenal hemorrhage. 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 Normal appearance of the right adrenal gland. Again seen are changes of cholecystectomy. CT of the pelvis shows small bilateral ovarian cysts, unchanged in size on the left and new on the right. Again seen are changes of hysterectomy. Please note that all CT scans at this facility use dose modulation, iterative reconstruction, and/or weight-based dosing when appropriate to reduce radiation dose to as low as reasonably achievable. Dictated by Spenser Waldrop MD @ Aug 25 2019 6:06PM Signed by Dr. Spenser Waldrop @ Aug 25 2019 6:16PM
--- NOTE | 2019-08-25 19:52 | PCM.HP.2 ---
H&P History of Present Illness - General Date of Service: 08/25/19 Admit Problem/Dx: Admission Diagnosis/Problem Admission Diagnosis/Problem Abdominal pain - History of Present Illness Initial Comments - Free Text/Narative: 44 yo female with pmh of colecystectomy, hysteroctomy and chronic abdominal pain who has had multiple ER visits and admissions for abdominal pain. She was referred to GI physician after her last admission. She was seen by GI today in [place] who ordered labs. Patient was called while driving back and instructed to go to the ED due to elevated white count seen on labs drawn today. Patient reports increased abdominal pain, nausea and vomiting today. epigastric Pain Score (Numeric/FACES): 10 - Related Data Allergies/Adverse Reactions: Allergies Allergy/AdvReac Type Severity Reaction Status Date / Time No Known Allergies Allergy Verified 08/26/19 01:03 Home Medications: Home Meds Glycopyrrolate/Formoterol Fum [Bevespi Aerosphere Inhaler] 2 puff INH BID [History] Escitalopram Oxalate [Lexapro] 5 mg PO ASDIRECTED PRN 08/25/19 [History] Past Medical History - Past Health History Medical/Surgical History: Denies Medical/Surgical History HEENT History: Reports: Impaired Vision, Other (See Below) Other HEENT History: wears glasses Respiratory History: Reports: COPD, SOB Gastrointestinal History: Reports: GERD, Irritable Bowel Syndrome Genitourinary History: Reports: Renal Calculus Musculoskeletal History: Reports: Back Pain, Chronic Neurological History: Reports: Concussion Psychiatric History: Reports: Anxiety, Depression Endocrine/Metabolic History: Reports: Obesity/BMI 30+ - Infectious Disease History Infectious Disease History: Reports: Chicken Pox - Past Surgical History GI Surgical History: Reports: Cholecystectomy Female Surgical History: Reports: Hysterectomy, Lithotripsy/ESWL Social & Family History - Family History Family Medical History: Noncontributory - Tobacco Use Smoking Status *Q: Current Every Day Smoker Years of Tobacco use: 20 Packs/Tins Daily: 1 - Caffeine Use Caffeine Use: Reports: Soda - Recreational Drug Use Recreational Drug Use: Yes Drug Use in Last 12 Months: Yes Recreational Drug Type: Reports: Marijuana/Hashish Recreational Drug Use Frequency: Rarely H&P Review of Systems - Review of Systems: Review Of Systems: ROS reveals no pertinent complaints other than HPI. Exam - Exam Exam: See Below - Vital Signs Vital Signs: Last Vital Signs Temp 36.0 C 08/25/19 15:35 Pulse 85 08/25/19 18:28 Resp 18 08/25/19 18:28 BP 161/110 H 08/25/19 18:28 Pulse Ox 97 08/25/19 18:28 Weight: 81 kg - Exam General: Alert, Oriented HEENT: Mucosa Moist & [place] Neck: Supple Lungs: Clear to Auscultation, Normal Respiratory Effort Cardiovascular: Regular Rate, Regular Rhythm GI/Abdominal Exam: Normal Bowel Sounds, Soft, Tender (to palpitation in all four quadrants) Extremities: Non-Tender, No Pedal Edema - Patient Data Lab Results Last 24 hrs: Laboratory Results - last 24 hr 08/25/19 08/25/19 08/25/19 Range/Units 16:13 16:13 17:10 WBC 18.52 H (4.0-11.0) K/uL RBC 5.12 (4.30-5.90) M/uL Hgb 16.4 H (12.0-16.0) g/dL Hct 49.1 H (36.0-46.0) % MCV 95.9 (80.0-98.0) fL MCH 32.0 (27.0-32.0) pg MCHC 33.4 (31.0-37.0) g/dL RDW Std Deviation 49.7 (28.0-62.0) fl RDW Coeff of Negrita 14 (11.0-15.0) % Plt Count 299 (150-400) K/uL MPV 10.40 (7.40-12.00) fL Neut % (Auto) 96.9 H (48.0-80.0) % Lymph % (Auto) 2.5 L (16.0-40.0) % [place] % (Auto) 0.5 (0.0-15.0) % Eos % (Auto) 0.0 (0.0-7.0) % Baso % (Auto) 0.1 (0.0-1.5) % Neut # (Auto) 18.0 H (1.4-5.7) K/uL Lymph # (Auto) 0.5 L (0.6-2.4) K/uL [place] # (Auto) 0.1 (0.0-0.8) K/uL Eos # (Auto) 0.0 (0.0-0.7) K/uL Baso # (Auto) 0.0 (0.0-0.1) K/uL Nucleated RBC % 0.0 /100WBC Nucleated RBCs # 0 K/uL Lactate (0.20-2.00) mmol/L Sodium 141 (136-145) mmol/L Potassium 4.3 (3.5-5.1) mmol/L Chloride 103 (98-107) mmol/L Carbon Dioxide 25.9 (21.0-32.0) mmol/L BUN 11 (7.0-18.0) mg/dL Creatinine 1.0 (0.6-1.0) mg/dL Est Cr Clr Drug Dosing 51.57 mL/min Estimated GFR (MDRD) > 60.0 ml/min Glucose 151 H (74-106) mg/dL Calcium 9.5 (8.5-10.1) mg/dL Total Bilirubin 0.4 (0.2-1.0) mg/dL AST 12 L (15-37) IU/L ALT 22 (14-63) IU/L Alkaline Phosphatase 89 (46-116) U/L Total Protein 7.8 (6.4-8.2) g/dL Albumin 4.0 (3.4-5.0) g/dL Globulin 3.8 (2.6-4.0) g/dL Albumin/Globulin Ratio 1.1 (0.9-1.6) Lipase 45 L (73-393) U/L Urine Color YELLOW Urine Appearance CLEAR Urine pH 6.5 (5.0-8.0) Ur Specific [place] 1.020 (1.001-1.035) Urine Protein NEGATIVE (NEGATIVE) mg/dL Urine Glucose (UA) NEGATIVE (NEGATIVE) mg/dL Urine Ketones >=80 (NEGATIVE) mg/dL Urine Occult Blood NEGATIVE (NEGATIVE) Urine Nitrite NEGATIVE (NEGATIVE) Urine Bilirubin SMALL H (NEGATIVE) Urine Ictotest NEGATIVE Urine Urobilinogen 0.2 (<2.0) EU/dL Ur Leukocyte Esterase NEGATIVE (NEGATIVE) 08/25/19 Range/Units 18:50 WBC (4.0-11.0) K/uL RBC (4.30-5.90) M/uL Hgb (12.0-16.0) g/dL Hct (36.0-46.0) % MCV (80.0-98.0) fL MCH (27.0-32.0) pg MCHC (31.0-37.0) g/dL RDW Std Deviation (28.0-62.0) fl RDW Coeff of [place] (11.0-15.0) % Plt Count (150-400) K/uL MPV (7.40-12.00) fL Neut % (Auto) (48.0-80.0) % Lymph % (Auto) (16.0-40.0) % [place] % (Auto) (0.0-15.0) % Eos % (Auto) (0.0-7.0) % Baso % (Auto) (0.0-1.5) % Neut # (Auto) (1.4-5.7) K/uL Lymph # (Auto) (0.6-2.4) K/uL [place] # (Auto) (0.0-0.8) K/uL Eos # (Auto) (0.0-0.7) K/uL Baso # (Auto) (0.0-0.1) K/uL Nucleated RBC % /100WBC Nucleated RBCs # K/uL Lactate 0.7 (0.20-2.00) mmol/L Sodium (136-145) mmol/L Potassium (3.5-5.1) mmol/L Chloride (98-107) mmol/L Carbon Dioxide (21.0-32.0) mmol/L BUN (7.0-18.0) mg/dL Creatinine (0.6-1.0) mg/dL Est Cr Clr Drug Dosing mL/min Estimated GFR (MDRD) ml/min Glucose (74-106) mg/dL Calcium (8.5-10.1) mg/dL Total Bilirubin (0.2-1.0) mg/dL AST (15-37) IU/L ALT (14-63) IU/L Alkaline Phosphatase (46-116) U/L Total Protein (6.4-8.2) g/dL Albumin (3.4-5.0) g/dL Globulin (2.6-4.0) g/dL Albumin/Globulin Ratio (0.9-1.6) Lipase (73-393) U/L Urine Color Urine Appearance Urine pH (5.0-8.0) Ur Specific [place] (1.001-1.035) Urine Protein (NEGATIVE) mg/dL Urine Glucose (UA) (NEGATIVE) mg/dL Urine Ketones (NEGATIVE) mg/dL Urine Occult Blood (NEGATIVE) Urine Nitrite (NEGATIVE) Urine Bilirubin (NEGATIVE) Urine Ictotest Urine Urobilinogen (<2.0) EU/dL Ur Leukocyte Esterase (NEGATIVE) Result Diagrams: 08/26/19 06:02 08/26/19 06:02 Danie Results Last 24 hrs: Microbiology 08/25/19 18:50 Anaerobic Blood Culture - Final Blood - Venous - Lab Draw Problem List Initiated/Reviewed/Updated: Yes Orders Last 24hrs: Active Orders 24 hr Category Date Time Status Admission Status [Patient Status] [ADT] Stat ADT 08/25/19 19:06 Active Antiembolic Devices [RC] PER UNIT ROUTINE Care 08/25/19 19:48 Ordered EKG Documentation Completion [RC] STAT Care 08/25/19 15:50 Active Oxygen Therapy [RC] PRN Care 08/25/19 19:46 Ordered Up ad Karolyn [RC] ASDIRECTED Care 08/25/19 19:46 Ordered VTE/DVT Education [RC] PER UNIT ROUTINE Care 08/25/19 19:46 Ordered Vital Signs [RC] Q4H Care 08/25/19 19:46 Ordered Nothing per Oral After Midnight Diet [DIET] Diet 08/25/19 Breakfast Ordered CBC WITH AUTO DIFF [HEME] AM Lab 08/26/19 05:11 Ordered COMPREHENSIVE METABOLIC PN,CMP [CHEM] AM Lab 08/26/19 05:11 Ordered CULTURE BLOOD [BC] Stat Lab 08/25/19 18:43 Received CULTURE BLOOD [BC] Stat Lab 08/25/19 18:50 Results CULTURE URINE [RM] Stat Lab 08/25/19 19:46 Ordered Morphine Med 08/25/19 19:46 Ordered 2 mg IVPUSH Q2H PRN Ondansetron [Zofran] Med 08/25/19 19:46 Ordered 4 mg IVPUSH Q4H PRN Pharmacy to Dose - Vancomycin Med 08/25/19 19:45 Ordered 1 dose .XX ASDIRECTED Piperacillin/Tazobactam [Piperacil-Tazobact] 3.375 gm Med 08/25/19 19:45 Ordered Sodium Chloride 0.9% [Normal Saline] 50 ml IV Q6H Sodium Chloride 0.9% @ 125 MLS/HR (1000ml) Med 08/25/19 20:00 Ordered Sodium Chloride 0.9% [Normal Saline] 1,000 ml IV ASDIRECTED Blood Culture x2 Reflex Set [OM.PC] Stat Oth 08/25/19 18:27 Ordered Sequential Compression Device [OM.PC] Per Unit Routine Oth 08/25/19 19:46 Ordered Resuscitation Status Routine Resus Stat 08/25/19 19:46 Ordered Medication Orders Piperacillin Sod/Tazobactam (Sod 3.375 gm/ Sodium Chloride) 50 mls @ 100 mls/ hr IV Q6H [facility] Vancomycin HCl (Pharmacy To Dose - Vancomycin) 1 dose .XX ASDIRECTED [facility] Assessment/Plan Comment:: 44 year old female admitted for abdominal pain with leukocytosis. CT scan shows stranding about the left adrenal. We will treat with IV fluids and antibiotics while ruling out infectious processes. Cultures have been ordered.
[2019-08-25] MEDS: Piperacillin/Tazobactam 3.375 GM in Sodium Chloride 0.9% 50 ML IV SCH (20:01)
[2019-08-25] MEDS ORDERED: Vancomycin 1.25 GM SDV ONE (21:56)
[2019-08-25] MEDS ORDERED: Sodium Chloride 0.9% 250 ML ONE (21:57)
[2019-08-25] MEDS: Sodium Chloride 0.9% 1,000 ML IV SCH (22:08)
[2019-08-25] MEDS: Morphine 10 MG/ML Syringe IVPUSH PRN (22:10)
[2019-08-26] MEDS: Piperacillin/Tazobactam 3.375 GM in Sodium Chloride 0.9% 50 ML IV SCH ×3 (01:33→13:54)
[2019-08-26 06:44] LABS: BLOOD UREA NITROGEN,BUN 5 mg/dL (7.0-18.0); CHLORIDE,CL 109 mmol/L (98-107); GLUCOSE RANDOM 105 mg/dL (74-106); POTASSIUM,K 3.3 mmol/L (3.5-5.1); SODIUM,NA 143 mmol/L (136-145)
[2019-08-26] MEDS: Morphine 10 MG/ML Syringe IVPUSH PRN ×2 (07:55→13:06)
[2019-08-26] MEDS: Sodium Chloride 0.9% 1,000 ML IV SCH (08:04)
--- NOTE | 2019-08-26 09:26 | PCM.PN ---
- General Info Date of Service: 08/26/19 Admission Dx/Problem (Free Text): Admission Diagnosis/Problem Admission Diagnosis/Problem Abdominal pain Subjective Update: Feeling somewhat improved today. Nausea is nearly gone, abdominal pain is located in epigastric region and radiates to L. Diarrhea noted, but this is a normal, no change to this. NO chest pain or SOB. Functional Status: Reports: Pain Controlled, Ambulating, Urinating - Review of Systems General: Reports: No Symptoms HEENT: Reports: No Symptoms Pulmonary: Reports: No Symptoms. Denies: Shortness of Breath Cardiovascular: Reports: No Symptoms. Denies: Chest Pain Gastrointestinal: Reports: Abdominal Pain (epigastric and LUQ), Diarrhea, Flatus. Denies: Nausea, Vomiting Genitourinary: Reports: No Symptoms. Denies: Dysuria, Frequency, Burning Musculoskeletal: Reports: No Symptoms Skin: Reports: No Symptoms Neurological: Reports: No Symptoms Psychiatric: Reports: No Symptoms - Patient Data Vitals - Most Recent: Last Vital Signs Temp 98.6 F 08/26/19 08:08 Pulse 91 08/26/19 08:08 Resp 18 08/26/19 08:08 BP 118/71 08/26/19 08:08 Pulse Ox 96 08/26/19 08:08 Weight - Most Recent: 81.692 kg I&O - Last 24 Hours: Intake & Output 08/25/19 08/26/19 08/26/19 22:59 06:59 14:59 Intake Total 600 50 Output Total 250 Balance 350 50 Lab Results Last 24 Hours: Laboratory Results - last 24 hr 08/25/19 08/25/19 08/25/19 Range/Units 16:13 16:13 17:10 WBC 18.52 H (4.0-11.0) K/uL RBC 5.12 (4.30-5.90) M/uL Hgb 16.4 H (12.0-16.0) g/dL Hct 49.1 H (36.0-46.0) % MCV 95.9 (80.0-98.0) fL MCH 32.0 (27.0-32.0) pg MCHC 33.4 (31.0-37.0) g/dL RDW Std Deviation 49.7 (28.0-62.0) fl RDW Coeff of [place] 14 (11.0-15.0) % Plt Count 299 (150-400) K/uL MPV 10.40 (7.40-12.00) fL Neut % (Auto) 96.9 H (48.0-80.0) % Lymph % (Auto) 2.5 L (16.0-40.0) % [place] % (Auto) 0.5 (0.0-15.0) % Eos % (Auto) 0.0 (0.0-7.0) % Baso % (Auto) 0.1 (0.0-1.5) % Neut # (Auto) 18.0 H (1.4-5.7) K/uL Lymph # (Auto) 0.5 L (0.6-2.4) K/uL [place] # (Auto) 0.1 (0.0-0.8) K/uL Eos # (Auto) 0.0 (0.0-0.7) K/uL Baso # (Auto) 0.0 (0.0-0.1) K/uL Nucleated RBC % 0.0 /100WBC Nucleated RBCs # 0 K/uL Lactate (0.20-2.00) mmol/L Sodium 141 (136-145) mmol/L Potassium 4.3 (3.5-5.1) mmol/L Chloride 103 (98-107) mmol/L Carbon Dioxide 25.9 (21.0-32.0) mmol/L BUN 11 (7.0-18.0) mg/dL Creatinine 1.0 (0.6-1.0) mg/dL Est Cr Clr Drug Dosing 51.57 mL/min Estimated GFR (MDRD) > 60.0 ml/min Glucose 151 H (74-106) mg/dL Calcium 9.5 (8.5-10.1) mg/dL Total Bilirubin 0.4 (0.2-1.0) mg/dL AST 12 L (15-37) IU/L ALT 22 (14-63) IU/L Alkaline Phosphatase 89 (46-116) U/L Total Protein 7.8 (6.4-8.2) g/dL Albumin 4.0 (3.4-5.0) g/dL Globulin 3.8 (2.6-4.0) g/dL Albumin/Globulin Ratio 1.1 (0.9-1.6) Lipase 45 L (73-393) U/L Urine Color YELLOW Urine Appearance CLEAR Urine pH 6.5 (5.0-8.0) Ur Specific [place] 1.020 (1.001-1.035) Urine Protein NEGATIVE (NEGATIVE) mg/dL Urine Glucose (UA) NEGATIVE (NEGATIVE) mg/dL Urine Ketones >=80 (NEGATIVE) mg/dL Urine Occult Blood NEGATIVE (NEGATIVE) Urine Nitrite NEGATIVE (NEGATIVE) Urine Bilirubin SMALL H (NEGATIVE) Urine Ictotest NEGATIVE Urine Urobilinogen 0.2 (<2.0) EU/dL Ur Leukocyte Esterase NEGATIVE (NEGATIVE) 08/25/19 08/26/19 08/26/19 Range/Units 18:50 06:02 06:02 WBC 15.11 H (4.0-11.0) K/uL RBC 4.23 L (4.30-5.90) M/uL Hgb 13.2 (12.0-16.0) g/dL Hct 40.8 (36.0-46.0) % MCV 96.5 (80.0-98.0) fL MCH 31.2 (27.0-32.0) pg MCHC 32.4 (31.0-37.0) g/dL RDW Std Deviation 50.8 (28.0-62.0) fl RDW Coeff of [place] 14 (11.0-15.0) % Plt Count 282 (150-400) K/uL MPV 10.10 (7.40-12.00) fL Neut % (Auto) 86.3 H (48.0-80.0) % Lymph % (Auto) 10.5 L (16.0-40.0) % [place] % (Auto) 3.0 (0.0-15.0) % Eos % (Auto) 0.1 (0.0-7.0) % Baso % (Auto) 0.1 (0.0-1.5) % Neut # (Auto) 13.0 H (1.4-5.7) K/uL Lymph # (Auto) 1.6 (0.6-2.4) K/uL [place] # (Auto) 0.5 (0.0-0.8) K/uL Eos # (Auto) 0.0 (0.0-0.7) K/uL Baso # (Auto) 0.0 (0.0-0.1) K/uL Nucleated RBC % 0.0 /100WBC Nucleated RBCs # 0 K/uL Lactate 0.7 (0.20-2.00) mmol/L Sodium 143 (136-145) mmol/L Potassium 3.3 L (3.5-5.1) mmol/L Chloride 109 H (98-107) mmol/L Carbon Dioxide 24.0 (21.0-32.0) mmol/L BUN 5 L (7.0-18.0) mg/dL Creatinine 0.8 (0.6-1.0) mg/dL Est Cr Clr Drug Dosing 64.46 mL/min Estimated GFR (MDRD) > 60.0 ml/min Glucose 105 (74-106) mg/dL Calcium 7.9 L (8.5-10.1) mg/dL Total Bilirubin 0.3 (0.2-1.0) mg/dL AST 11 L (15-37) IU/L ALT 17 (14-63) IU/L Alkaline Phosphatase 55 (46-116) U/L Total Protein 5.7 L (6.4-8.2) g/dL Albumin 2.8 L (3.4-5.0) g/dL Globulin 2.9 (2.6-4.0) g/dL Albumin/Globulin Ratio 1.0 (0.9-1.6) Lipase (73-393) U/L Urine Color Urine Appearance Urine pH (5.0-8.0) Ur Specific [place] (1.001-1.035) Urine Protein (NEGATIVE) mg/dL Urine Glucose (UA) (NEGATIVE) mg/dL Urine Ketones (NEGATIVE) mg/dL Urine Occult Blood (NEGATIVE) Urine Nitrite (NEGATIVE) Urine Bilirubin (NEGATIVE) Urine Ictotest Urine Urobilinogen (<2.0) EU/dL Ur Leukocyte Esterase (NEGATIVE) Danie Results Last 24 Hours: Microbiology 08/25/19 18:50 Anaerobic Blood Culture - Final Blood - Venous - Lab Draw Med Orders - Current: Current Medications Piperacillin Sod/Tazobactam (Sod 3.375 gm/ Sodium Chloride) 50 mls @ 100 mls/ hr IV Q6H MICHAEL Last Admin: 08/26/19 08:01 Dose: 100 mls/hr Sodium Chloride (Normal Saline) 1,000 mls @ 125 mls/hr IV ASDIRECTED [facility] Last Admin: 08/26/19 08:04 Dose: 125 mls/hr Vancomycin HCl 1.25 gm/ Sodium (Chloride) 250 mls @ 166.667 mls/hr IV Q12H [facility] Last Admin: 08/25/19 22:08 Dose: 166.667 mls/hr Morphine Sulfate (Morphine) 2 mg IVPUSH Q2H PRN PRN Reason: Pain (severe 7-10) Stop: 08/26/19 19:48 Last Admin: 08/26/19 07:55 Dose: 2 mg Ondansetron HCl (Zofran) 4 mg IVPUSH Q4H PRN PRN Reason: Nausea Vancomycin HCl (Pharmacy To Dose - Vancomycin) 1 dose .XX ASDIRECTED [facility] Discontinued Medications Sodium Chloride (Normal Saline) 1,000 mls @ 999 mls/hr IV BOLUS ONE Stop: 08/25/19 16:43 Last Admin: 08/25/19 16:13 Dose: 999 mls/hr Sodium Chloride (Normal Saline) 1,000 mls @ 999 mls/hr IV STAT ONE Stop: 08/25/19 19:26 Last Admin: 08/25/19 18:56 Dose: 999 mls/hr Vancomycin HCl 1.25 gm/ Sodium (Chloride) 250 mls @ 166.667 mls/hr IV Q12H [facility] Last Admin: 08/25/19 23:11 Dose: Not Given Vancomycin HCl 1.25 gm/ Sodium (Chloride) 250 mls @ 166.667 mls/hr IV Q12H [facility] Sodium Chloride (Normal Saline (Advbag)) Confirm Administered Dose 250 mls @ as directed .ROUTE .STK-MED ONE Stop: 08/25/19 21:58 Last Admin: 08/25/19 22:14 Dose: Not Given Iopamidol (Isovue Multipack-370 (76%)) 100 ml IVPUSH ONETIME STA Stop: 08/25/19 17:33 Last Admin: 08/25/19 17:32 Dose: 100 ml Lorazepam (Ativan) 1 mg IVPUSH ONETIME ONE Stop: 08/25/19 15:57 Last Admin: 08/25/19 16:14 Dose: 1 mg Ondansetron HCl (Zofran) 4 mg IVPUSH ONETIME ONE Stop: 08/25/19 15:44 Last Admin: 08/25/19 16:14 Dose: 4 mg Vancomycin HCl (Vancomycin) Confirm Administered Dose 1.25 gm .ROUTE .STK-MED ONE Stop: 08/25/19 21:57 Last Admin: 08/25/19 22:14 Dose: Not Given - Exam General: Alert, Oriented, Cooperative, No Acute Distress Lungs: Clear to Auscultation, Normal Respiratory Effort Cardiovascular: Regular Rate, Regular Rhythm GI/Abdominal Exam: Normal Bowel Sounds, Soft, No Mass, Tender (epigastric and LUQ) Extremities: Normal Inspection, Normal Range of Motion, Non-Tender, No Pedal Edema Neurological: No New Focal Deficit Psy/Mental Status: Alert, Normal Affect, Normal Mood - Problem List & Annotations (1) Abdominal pain SNOMED Code(s): 88028362 Code(s): R10.9 - UNSPECIFIED ABDOMINAL PAIN Status: Acute Current Visit: Yes Qualifiers: Abdominal location: epigastric Qualified Code(s): R10.13 - Epigastric pain (2) Leukocytosis SNOMED Code(s): 143521217, 623011650 Code(s): D72.829 - ELEVATED WHITE BLOOD CELL COUNT, UNSPECIFIED Status: Acute Current Visit: Yes Qualifiers: Leukocytosis type: unspecified Qualified Code(s): D72.829 - Elevated white blood cell count, unspecified (3) Tobacco abuse SNOMED Code(s): 796564938 Code(s): Z72.0 - TOBACCO USE Status: Acute Current Visit: Yes (4) Alcohol abuse SNOMED Code(s): 25124200 Code(s): F10.10 - ALCOHOL ABUSE, UNCOMPLICATED Status: Acute Current Visit: Yes - Problem List Review Problem List Initiated/Reviewed/Updated: Yes - Plan Plan:: 44 year old female admitted for abdominal pain with leukocytosis. 1. Abdominal pain: CT scan shows stranding about the left adrenal gland, consulted Dr Ling. MRI of abdomen ordered for today. Will await results. Continue with IV fluids and antibiotics while ruling out infectious processes. Cultures pending. Leukocytosis improving. Afebrile. Had discussion with her regarding alcohol use, she reports she is 10 days sober, and states the pain is significantly improved after she has stopped drinking. Consider chronic pancreatitis component. 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 She reports she does use marijuana 1-2 times daily. Reports the pain is not cyclic and doesn't necessarily improve when she stops marijuana use and does not improve with heat or showering. VTE prophylaxis: SCDs and ambulation Dispo: 1-2 days pending improvement
[2019-08-26] MEDS: Sodium Chloride 0.45% with KCl 1,000 ML IV SCH ×2 (10:24→20:24)
[2019-08-26] MEDS ORDERED: Gadobenate Dimeglumine 529 MG/ML 20 ML SDV IVPUSH STA (11:46)
--- NOTE | 2019-08-26 13:05 | MR ---
INDICATION: INFLAMATION IN LUQ ON CT SCAN Indication: Inflammatory stranding surrounding the left adrenal gland on recent CT scan. Technique: MRI of the abdomen without and with intravenous gadolinium. Three plane localizer, coronal T2 weighted with fat suppression, sagittal T2 weighted, axial T2 weighted with fat suppression, axial T1 weighted in and out of phase, axial diffusion-weighted imaging with ADC map, axial SSFP, and post-contrast axial and coronal T1 weighted THRIVE pulse sequences were obtained. 14 cc of IV multihance. Comparison: CT of the abdomen and pelvis, 08/25/2019. Findings: Review of the recent CT scan demonstrates fat stranding in the retroperitoneum, surrounding the left adrenal gland, which appears mildly enlarged. The adrenal gland enhances uniformly, and there is no evidence on MRI for internal necrosis. No discrete mass is identified. Left upper quadrant fat stranding is well-demonstrated, image 28, series 401. There is no T1 shortening identified on T1 weighted in or out of phase images. There is no fat stranding present surrounding the right adrenal gland. There is uniform enhancement, and no pancreatic duct dilation or glandular atrophy. The spleen size is normal. Non cirrhotic liver morphology. Mild dilation of intrahepatic biliary radicals, which could be secondary to reservoir effect postcholecystectomy. No pleural or pericardial effusion. No hydronephrosis or drainable perinephric no loss of signal intensity in the liver on opposed phase imaging to indicate hepatic steatosis. Fluid collection. Impression: 1. Fat stranding surrounding the left adrenal gland is similar, given differences in modality, to the recent CT from 08/25/2019. 2. Left adrenal gland enhances normally when compared with the contralateral adrenal gland, and is mildly enlarged. No mass. 3. Although there is no T1 shortening prior to gadolinium, adrenal hemorrhage could produce this finding. This should be correlated for any history of recent trauma. 4. Imaging surveillance in 4-6 weeks is suggested. 5. Biliary dilatation, which is likely secondary to reservoir effect after cholecystectomy. Dictated by Uzair Simmons MD @ 08/26/2019 1:04:18 PM Dictated by: Uzair Simmons MD @ 08/26/2019 13:04:47 (Electronically Signed)
--- NOTE | 2019-08-26 13:35 | PCM.CONS ---
H&P History of Present Illness - General Date of Service: 08/26/19 Admit Problem/Dx: Admission Diagnosis/Problem Admission Diagnosis/Problem Abdominal pain Source of Information: Patient History Limitations: Reports: No Limitations - History of Present Illness Initial Comments - Free Text/Narative: 44 yo female who presents with increased abdominal pain. She has a history of chronic abdominal pain. She has had an EGD and colonoscopy which where normal. She had CT scans in the past that were normal. She has had a cholecystectomy and hysterectomy. Yesterday, she was being worked up in [facility] with a data integrity analyst. As a part of this she had labs drawn. She was found to have a leukocytosis of 18K. She was told to present to the ER in [place]. Work up revealed an elevated WBC with a left shift. She was somewhat hemoconcentrated as well. She c/o nausea and epigastric pain that was worse than before. It radiated to her back. She had a CT abdomen/pelvis performed that showed mild inflammatory changes around the left adrenal gland. She was admitted to the hospitalist service. She was given IVF, IV antibiotics and kept NPO after midnight. Her nausea is gone this morning. She still has pain which is improved with pain medications. She admits that she has been drinking alcohol frequently in the remote past, but hasnt drank for 10 days. She feels her abdominal pain improved with this. Lipase was normal. epigastric Pain Score (Numeric/FACES): 7 - Related Data Allergies/Adverse Reactions: Allergies Allergy/AdvReac Type Severity Reaction Status Date / Time No Known Allergies Allergy Verified 08/26/19 01:03 Home Medications: Home Meds Glycopyrrolate/Formoterol Fum [Bevespi Aerosphere Inhaler] 2 puff INH BID [History] Escitalopram Oxalate [Lexapro] 5 mg PO ASDIRECTED PRN 08/25/19 [History] Past Medical History - Past Health History Medical/Surgical History: Denies Medical/Surgical History HEENT History: Reports: Impaired Vision, Other (See Below) Other HEENT History: wears glasses Respiratory History: Reports: COPD, SOB Gastrointestinal History: Reports: GERD, Irritable Bowel Syndrome Genitourinary History: Reports: Renal Calculus Musculoskeletal History: Reports: Back Pain, Chronic Neurological History: Reports: Concussion Psychiatric History: Reports: Anxiety, Depression Endocrine/Metabolic History: Reports: Obesity/BMI 30+ - Infectious Disease History Infectious Disease History: Reports: Chicken Pox - Past Surgical History GI Surgical History: Reports: Cholecystectomy Female Surgical History: Reports: Hysterectomy, Lithotripsy/ESWL Social & Family History - Family History Family Medical History: Noncontributory - Tobacco Use Smoking Status *Q: Current Every Day Smoker Years of Tobacco use: 20 Packs/Tins Daily: 0.5 - Caffeine Use Caffeine Use: Reports: Soda - Recreational Drug Use Recreational Drug Use: Yes Drug Use in Last 12 Months: Yes Recreational Drug Type: Reports: Marijuana/Hashish Recreational Drug Use Frequency: Socially H&P Review of Systems - Review of Systems: Review Of Systems: ROS reveals no pertinent complaints other than HPI. Exam - Exam Exam: See Below - Vital Signs Vital Signs: Last Vital Signs Temp 36.6 C 08/26/19 12:00 Pulse 72 08/26/19 12:00 Resp 18 08/26/19 12:00 BP 128/71 08/26/19 12:00 Pulse Ox 97 08/26/19 12:00 Weight: 81.692 kg - Exam General: Alert, Oriented, Cooperative, Mild Distress HEENT: Conjunctiva Clear, Mucosa Moist & [place], Posterior Pharynx Clear Neck: Supple, Trachea Midline Lungs: Clear to Auscultation, Normal Respiratory Effort Cardiovascular: Regular Rate, Regular Rhythm GI/Abdominal Exam: Soft, Non-Tender, No Distention, No Mass, Other (subjective epigastric tenderness that occurs only with deep palpation ). No: Guarding, Rigid, Rebound - Patient Data Lab Results Last 24 hrs: Laboratory Results - last 24 hr 08/25/19 08/25/19 08/25/19 Range/Units 16:13 16:13 17:10 WBC 18.52 H (4.0-11.0) K/uL RBC 5.12 (4.30-5.90) M/uL Hgb 16.4 H (12.0-16.0) g/dL Hct 49.1 H (36.0-46.0) % MCV 95.9 (80.0-98.0) fL MCH 32.0 (27.0-32.0) pg MCHC 33.4 (31.0-37.0) g/dL RDW Std Deviation 49.7 (28.0-62.0) fl RDW Coeff of [place] 14 (11.0-15.0) % Plt Count 299 (150-400) K/uL MPV 10.40 (7.40-12.00) fL Neut % (Auto) 96.9 H (48.0-80.0) % Lymph % (Auto) 2.5 L (16.0-40.0) % [place] % (Auto) 0.5 (0.0-15.0) % Eos % (Auto) 0.0 (0.0-7.0) % Baso % (Auto) 0.1 (0.0-1.5) % Neut # (Auto) 18.0 H (1.4-5.7) K/uL Lymph # (Auto) 0.5 L (0.6-2.4) K/uL [place] # (Auto) 0.1 (0.0-0.8) K/uL Eos # (Auto) 0.0 (0.0-0.7) K/uL Baso # (Auto) 0.0 (0.0-0.1) K/uL Nucleated RBC % 0.0 /100WBC Nucleated RBCs # 0 K/uL Lactate (0.20-2.00) mmol/L Sodium 141 (136-145) mmol/L Potassium 4.3 (3.5-5.1) mmol/L Chloride 103 (98-107) mmol/L Carbon Dioxide 25.9 (21.0-32.0) mmol/L BUN 11 (7.0-18.0) mg/dL Creatinine 1.0 (0.6-1.0) mg/dL Est Cr Clr Drug Dosing 51.57 mL/min Estimated GFR (MDRD) > 60.0 ml/min Glucose 151 H (74-106) mg/dL Calcium 9.5 (8.5-10.1) mg/dL Total Bilirubin 0.4 (0.2-1.0) mg/dL AST 12 L (15-37) IU/L ALT 22 (14-63) IU/L Alkaline Phosphatase 89 (46-116) U/L Total Protein 7.8 (6.4-8.2) g/dL Albumin 4.0 (3.4-5.0) g/dL Globulin 3.8 (2.6-4.0) g/dL Albumin/Globulin Ratio 1.1 (0.9-1.6) Lipase 45 L (73-393) U/L Urine Color YELLOW Urine Appearance CLEAR Urine pH 6.5 (5.0-8.0) Ur Specific [place] 1.020 (1.001-1.035) Urine Protein NEGATIVE (NEGATIVE) mg/dL Urine Glucose (UA) NEGATIVE (NEGATIVE) mg/dL Urine Ketones >=80 (NEGATIVE) mg/dL Urine Occult Blood NEGATIVE (NEGATIVE) Urine Nitrite NEGATIVE (NEGATIVE) Urine Bilirubin SMALL H (NEGATIVE) Urine Ictotest NEGATIVE Urine Urobilinogen 0.2 (<2.0) EU/dL Ur Leukocyte Esterase NEGATIVE (NEGATIVE) 08/25/19 08/26/19 08/26/19 Range/Units 18:50 06:02 06:02 WBC 15.11 H (4.0-11.0) K/uL RBC 4.23 L (4.30-5.90) M/uL Hgb 13.2 (12.0-16.0) g/dL Hct 40.8 (36.0-46.0) % MCV 96.5 (80.0-98.0) fL MCH 31.2 (27.0-32.0) pg MCHC 32.4 (31.0-37.0) g/dL RDW Std Deviation 50.8 (28.0-62.0) fl RDW Coeff of [place] 14 (11.0-15.0) % Plt Count 282 (150-400) K/uL MPV 10.10 (7.40-12.00) fL Neut % (Auto) 86.3 H (48.0-80.0) % Lymph % (Auto) 10.5 L (16.0-40.0) % [place] % (Auto) 3.0 (0.0-15.0) % Eos % (Auto) 0.1 (0.0-7.0) % Baso % (Auto) 0.1 (0.0-1.5) % Neut # (Auto) 13.0 H (1.4-5.7) K/uL Lymph # (Auto) 1.6 (0.6-2.4) K/uL [place] # (Auto) 0.5 (0.0-0.8) K/uL Eos # (Auto) 0.0 (0.0-0.7) K/uL Baso # (Auto) 0.0 (0.0-0.1) K/uL Nucleated RBC % 0.0 /100WBC Nucleated RBCs # 0 K/uL Lactate 0.7 (0.20-2.00) mmol/L Sodium 143 (136-145) mmol/L Potassium 3.3 L (3.5-5.1) mmol/L Chloride 109 H (98-107) mmol/L Carbon Dioxide 24.0 (21.0-32.0) mmol/L BUN 5 L (7.0-18.0) mg/dL Creatinine 0.8 (0.6-1.0) mg/dL Est Cr Clr Drug Dosing 64.46 mL/min Estimated GFR (MDRD) > 60.0 ml/min Glucose 105 (74-106) mg/dL Calcium 7.9 L (8.5-10.1) mg/dL Total Bilirubin 0.3 (0.2-1.0) mg/dL AST 11 L (15-37) IU/L ALT 17 (14-63) IU/L Alkaline Phosphatase 55 (46-116) U/L Total Protein 5.7 L (6.4-8.2) g/dL Albumin 2.8 L (3.4-5.0) g/dL Globulin 2.9 (2.6-4.0) g/dL Albumin/Globulin Ratio 1.0 (0.9-1.6) Lipase (73-393) U/L Urine Color Urine Appearance Urine pH (5.0-8.0) Ur Specific [place] (1.001-1.035) Urine Protein (NEGATIVE) mg/dL Urine Glucose (UA) (NEGATIVE) mg/dL Urine Ketones (NEGATIVE) mg/dL Urine Occult Blood (NEGATIVE) Urine Nitrite (NEGATIVE) Urine Bilirubin (NEGATIVE) Urine Ictotest Urine Urobilinogen (<2.0) EU/dL Ur Leukocyte Esterase (NEGATIVE) Result Diagrams: 08/26/19 06:02 08/26/19 06:02 Danie Results Last 24 hrs: Microbiology 08/25/19 18:50 Anaerobic Blood Culture - Final Blood - Venous - Lab Draw Consult PN Assessment/Plan Procedures: Procedures AIRWAY INHALATION TREATMENT (08/06/18) ASSAY OF AMYLASE (08/08/18) ASSAY OF LIPASE (08/12/19) ASSAY OF TROPONIN QUANT (08/12/19) ASSAY THYROID STIM HORMONE (04/08/19) C-REACTIVE PROTEIN (12/29/17) COLONOSCOPY W/LESION REMOVAL (04/23/19) COMPLETE CBC W/AUTO DIFF WBC (08/12/19) COMPREHEN METABOLIC PANEL (08/12/19) CT ABD & PELV W/CONTRAST (04/16/19) CT ABD & PELVIS W/O CONTRAST (08/11/19) EGD BIOPSY SINGLE/MULTIPLE (04/23/19) EMERGENCY DEPT VISIT (08/12/19) EMERGENCY DEPT VISIT (08/06/18) EMERGENCY DEPT VISIT (12/29/17) GLYCOSYLATED HEMOGLOBIN TEST (04/08/19) HYDRATE IV INFUSION ADD-ON (08/12/19) LIPID PANEL (08/08/18) METABOLIC PANEL TOTAL CA (08/12/19) ROUTINE VENIPUNCTURE (08/12/19) THER/PROPH/DIAG INJ IV PUSH (08/12/19) THER/PROPH/DIAG INJ SC/IM (08/11/19) TX/PRO/DX INJ NEW DRUG ADDON (08/12/19) URINALYSIS AUTO W/O SCOPE (08/11/19) URINALYSIS AUTO W/SCOPE (08/12/19) URINE CULTURE/COLONY COUNT (12/29/17) URINE TEST (08/12/19) US EXAM PELVIC COMPLETE (04/10/19) VITAMIN D 25 HYDROXY (04/08/19) X-RAY EXAM CHEST 2 VIEWS (08/06/18) (1) Abdominal pain SNOMED Code(s): 07988712 Code(s): R10.9 - UNSPECIFIED ABDOMINAL PAIN Current Visit: Yes Qualifiers: Abdominal location: epigastric Qualified Code(s): R10.13 - Epigastric pain Problem List Initiated/Reviewed/Updated: Yes Plan: I discussed the CT findings with the radiologist who read the images last night. Given the indeterminate cause of the inflammation at the time, an MRI was obtained. Again this showed some mild inflammation around the same area with no clear source. She was more forthcoming regarding her drinking and I wonder if her pain was secondary to some mild chronic pancreatitis. Perhaps this is the cause of the indistinct inflammation. If this is from an adrenal process supportive care is what she needs. Continue with IVF and can advance diet as tolerated. Antibiotics can be discontinued if the medicine team feels it is appropriate. There is no clear bacterial infectious source. She can follow up as an outpatient in my clinic or continue with GI in [place] as previously this is who she has been seeing. Please call with any questions or concerns.
[2019-08-26] MEDS: Morphine 2 MG/ML Syringe IVPUSH PRN ×2 (18:26→20:30)
[2019-08-26] MEDS: Ondansetron 4 MG/2 ML SDV IVPUSH PRN (20:30)
[2019-08-27] MEDS: Ondansetron 4 MG/2 ML SDV IVPUSH PRN ×2 (04:37→11:34)
[2019-08-27] MEDS: Morphine 2 MG/ML Syringe IVPUSH PRN ×3 (04:41→23:21)
[2019-08-27 06:43] LABS: BLOOD UREA NITROGEN,BUN 3 mg/dL (7.0-18.0); CARBON DIOXIDE,CO2 22.5 mmol/L (21.0-32.0); CHLORIDE,CL 108 mmol/L (98-107); GLUCOSE RANDOM 107 mg/dL (74-106); POTASSIUM,K 3.8 mmol/L (3.5-5.1); SODIUM,NA 139 mmol/L (136-145)
[2019-08-27] MEDS: Sodium Chloride 0.45% with KCl 1,000 ML IV SCH (07:15)
[2019-08-27] MEDS ORDERED: Acetaminophen 325 MG Tab PO PRN (08:28)
--- NOTE | 2019-08-27 10:49 | PCM.DCSUM1 ---
Discharge Summary - Hospital Course Diagnosis: Stroke: No - Discharge Data Discharge Date: 08/28/19 Discharge Disposition: Home, Self-Care 01 Condition: Good - Referral to Home Health Primary Care Physician: lElen Ayala NP - Discharge Diagnosis/Problem(s) (1) Abdominal pain SNOMED Code(s): 50135361 ICD Code: R10.9 - UNSPECIFIED ABDOMINAL PAIN Status: Acute Qualifiers: Abdominal location: epigastric Qualified Code(s): R10.13 - Epigastric pain (2) Leukocytosis SNOMED Code(s): 650764519, 125453421 ICD Code: D72.829 - ELEVATED WHITE BLOOD CELL COUNT, UNSPECIFIED Status: Acute Qualifiers: Leukocytosis type: unspecified Qualified Code(s): D72.829 - Elevated white blood cell count, unspecified (3) Tobacco abuse SNOMED Code(s): 216852759 ICD Code: Z72.0 - TOBACCO USE Status: Acute (4) Alcohol abuse SNOMED Code(s): 35859033 ICD Code: F10.10 - ALCOHOL ABUSE, UNCOMPLICATED Status: Acute - Patient Summary/Data Consults: Consultations 08/25/19 20:22 Consult to Physician [CONS] Routine - Patient Instructions Diet: Full Liquid Diet, GI Soft/Low Residue/Low Fiber (slowly advance to low fat diet) Activity: As Tolerated Driving: Do Not Drive Showering/Bathing: May Shower Notify Provider of: Fever, Increased Pain, Swelling and Redness, Drainage, Nausea and/or Vomiting Other/Special Instructions: Encouraged to remain sober. - Discharge Plan *PRESCRIPTION DRUG MONITORING PROGRAM REVIEWED*: Not Applicable *COPY OF PRESCRIPTION DRUG MONITORING REPORT IN PATIENT PRISCILLA: Not Applicable Prescriptions/Med Rec: Mirtazapine [Remeron] 30 mg PO BEDTIME #30 tab Topiramate [Topamax] 25 mg PO BID #60 tab Home Medications: Home Meds Glycopyrrolate/Formoterol Fum [Bevespi Aerosphere Inhaler] 2 puff INH BID [History] Mirtazapine [Remeron] 30 mg PO BEDTIME #30 tab 08/28/19 [Rx] Topiramate [Topamax] 25 mg PO BID #60 tab 08/28/19 [Rx] Oxygen Therapy Mode: Room Air Patient Handouts: Smoking Tobacco Information, Adult, Leukocytosis, Mirtazapine tablets, Abdominal Pain, Adult, [id number], What You Need to Know About Alcohol Abuse and Dependence, Youth, Topiramate tablets Referrals: [facility] [Outside] Shannan Ruiz MD [Ordering Only Provider] - 09/02/19 2:40 pm Ellen Ayala NP [Primary Care Provider] - 09/04/19 5:00 pm (Please arrive 15 minutes before scheduled appointment on 09/04/19 with Ellen Ayala [facility]) - Discharge Summary/Plan Comment DC Time >30 min.: No Discharge Summary/Plan Comment: Admitting Diagnoses: Abdominal pain dehydration Hx alcohol abuse Discharge Diagnoses: Abdominal pain Hx alchol abuse Anxiety Laura was admitted and treated for this acute on chronic abdominal pain. She was treated with IVFs, Dr Ling consulted due to findings of stranding near L adrenal gland. MRI of abdomen revealed similar findings. Possible chronic pancreatitis. Leukocytosis improved with fluids. IV antibiotics were initially started, but discontinued when no obvious infection noted. She was slowly started on diet and tolerated well. She was set for discharge 08/27 but then became extremely anxious and extreme abdominal pain. She was treated with Ativan and Morphine and pain improved significantly along with panic attack. Dr Shields was consulted to further evaluate possible psychosomatic cause of abdominal pain. He recommended stopping Lexapro and starting Remeron 30 mg QHS and Topamax 25 mg BID. Laura and her partner were very happy with consultation with Dr Shields. Sobriety was highly encouraged. She was given AA meetings list, [facility] number for follow up. She is to follow up with PCP and GI specialist as arranged. She is to return to ED or clinic if concerns should arise. - General Info Date of Service: 08/28/19 Admission Dx/Problem (Free Text: Admission Diagnosis/Problem Admission Diagnosis/Problem Abdominal pain Subjective Update: Doing well today. Abdominal pain well controlled and as a good base line. No diarrhea. Anxiety is well controlled. Eager to go home with significant other after talk with Dr Shields. - Patient Data Vitals - Most Recent: Last Vital Signs Temp 97.5 F 08/27/19 07:43 Pulse 57 L 08/27/19 07:43 Resp 16 08/27/19 07:43 BP 134/66 08/27/19 07:43 Pulse Ox 96 08/27/19 07:43 Weight - Most Recent: 81 kg I&O - Last 24 hours: Intake & Output 08/26/19 08/27/19 08/27/19 22:59 06:59 14:59 Intake Total 604 440 Output Total 450 850 Balance 154 -410 Lab Results - Last 24 hrs: Laboratory Results - last 24 hr 08/27/19 08/27/19 Range/Units 06:12 06:12 WBC 10.63 (4.0-11.0) K/uL RBC 4.00 L (4.30-5.90) M/uL Hgb 12.5 (12.0-16.0) g/dL Hct 38.8 (36.0-46.0) % MCV 97.0 (80.0-98.0) fL MCH 31.3 (27.0-32.0) pg MCHC 32.2 (31.0-37.0) g/dL RDW Std Deviation 51.4 (28.0-62.0) fl RDW Coeff of Negrita 14 (11.0-15.0) % Plt Count 240 (150-400) K/uL MPV 10.10 (7.40-12.00) fL Neut % (Auto) 76.9 (48.0-80.0) % Lymph % (Auto) 16.6 (16.0-40.0) % [place] % (Auto) 4.5 (0.0-15.0) % Eos % (Auto) 1.8 (0.0-7.0) % Baso % (Auto) 0.2 (0.0-1.5) % Neut # (Auto) 8.2 H (1.4-5.7) K/uL Lymph # (Auto) 1.8 (0.6-2.4) K/uL [place] # (Auto) 0.5 (0.0-0.8) K/uL Eos # (Auto) 0.2 (0.0-0.7) K/uL Baso # (Auto) 0.0 (0.0-0.1) K/uL Nucleated RBC % 0.0 /100WBC Nucleated RBCs # 0 K/uL Sodium 139 (136-145) mmol/L Potassium 3.8 (3.5-5.1) mmol/L Chloride 108 H (98-107) mmol/L Carbon Dioxide 22.5 (21.0-32.0) mmol/L BUN 3 L (7.0-18.0) mg/dL Creatinine 0.9 (0.6-1.0) mg/dL Est Cr Clr Drug Dosing 57.30 mL/min Estimated GFR (MDRD) > 60.0 ml/min Glucose 107 H (74-106) mg/dL Calcium 8.0 L (8.5-10.1) mg/dL Total Bilirubin 0.3 (0.2-1.0) mg/dL AST 17 (15-37) IU/L ALT 18 (14-63) IU/L Alkaline Phosphatase 58 (46-116) U/L Total Protein 5.7 L (6.4-8.2) g/dL Albumin 2.8 L (3.4-5.0) g/dL Globulin 2.9 (2.6-4.0) g/dL Albumin/Globulin Ratio 1.0 (0.9-1.6) BOBY Results - Last 24 hrs: Microbiology 08/25/19 17:10 Urine Culture - Final Urine, Bladder MIXED YAHAIRA >100,000 CFU/ML 08/25/19 18:50 Aerobic Blood Culture - Preliminary Blood - Venous - Lab Draw NO GROWTH AFTER 1 DAY Anaerobic Blood Culture - Final 08/25/19 18:43 Aerobic Blood Culture - Preliminary Blood - Venous NO GROWTH AFTER 1 DAY Anaerobic Blood Culture - Preliminary NO GROWTH AFTER 1 DAY Med Orders - Current: Current Medications Acetaminophen (Tylenol) 650 mg PO Q4H PRN PRN Reason: Pain Potassium Chloride/Sodium Chloride (1/2 Ns With 20 Meq Kcl) 1,000 mls @ 125 mls /hr IV ASDIRECTED MICHAEL Last Admin: 08/27/19 07:15 Dose: 125 mls/hr Ondansetron HCl (Zofran) 4 mg IVPUSH Q4H PRN PRN Reason: Nausea Last Admin: 08/27/19 04:37 Dose: 4 mg Discontinued Medications Gadobenate Dimeglumine (Multihance) 16 ml IVPUSH ONETIME STA Stop: 08/26/19 11:47 Last Admin: 08/26/19 11:48 Dose: 16 ml Sodium Chloride (Normal Saline) 1,000 mls @ 999 mls/hr IV BOLUS ONE Stop: 08/25/19 16:43 Last Admin: 08/25/19 16:13 Dose: 999 mls/hr Sodium Chloride (Normal Saline) 1,000 mls @ 999 mls/hr IV STAT ONE Stop: 08/25/19 19:26 Last Admin: 08/25/19 18:56 Dose: 999 mls/hr Piperacillin Sod/Tazobactam (Sod 3.375 gm/ Sodium Chloride) 50 mls @ 100 mls/ hr IV Q6H [facility] Last Admin: 08/26/19 13:54 Dose: 100 mls/hr Sodium Chloride (Normal Saline) 1,000 mls @ 125 mls/hr IV ASDIRECTED [facility] Last Admin: 08/26/19 08:04 Dose: 125 mls/hr Vancomycin HCl 1.25 gm/ Sodium (Chloride) 250 mls @ 166.667 mls/hr IV Q12H [facility] Last Admin: 08/25/19 23:11 Dose: Not Given Vancomycin HCl 1.25 gm/ Sodium (Chloride) 250 mls @ 166.667 mls/hr IV Q12H [facility] Vancomycin HCl 1.25 gm/ Sodium (Chloride) 250 mls @ 166.667 mls/hr IV Q12H [facility] Last Admin: 08/26/19 10:17 Dose: 166.667 mls/hr Sodium Chloride (Normal Saline (Advbag)) Confirm Administered Dose 250 mls @ as directed .ROUTE .STK-MED ONE Stop: 08/25/19 21:58 Last Admin: 08/25/19 22:14 Dose: Not Given Iopamidol (Isovue Multipack-370 (76%)) 100 ml IVPUSH ONETIME STA Stop: 08/25/19 17:33 Last Admin: 08/25/19 17:32 Dose: 100 ml Lorazepam (Ativan) 1 mg IVPUSH ONETIME ONE Stop: 08/25/19 15:57 Last Admin: 08/25/19 16:14 Dose: 1 mg Morphine Sulfate (Morphine) 2 mg IVPUSH Q2H PRN PRN Reason: Pain (severe 7-10) Last Admin: 08/26/19 13:06 Dose: 2 mg Morphine Sulfate (Morphine) 2 mg IVPUSH Q2H PRN PRN Reason: Pain (severe 7-10) Last Admin: 08/27/19 04:41 Dose: 2 mg Ondansetron HCl (Zofran) 4 mg IVPUSH ONETIME ONE Stop: 08/25/19 15:44 Last Admin: 08/25/19 16:14 Dose: 4 mg Vancomycin HCl (Pharmacy To Dose - Vancomycin) 1 dose .XX ASDIRECTED [facility] Vancomycin HCl (Vancomycin) Confirm Administered Dose 1.25 gm .ROUTE .STK-MED ONE Stop: 08/25/19 21:57 Last Admin: 08/25/19 22:14 Dose: Not Given
[2019-08-27] MEDS ORDERED: LORazepam 0.5 MG Tab PO ONE (12:18)
--- NOTE | 2019-08-27 13:49 | PCM.PN ---
- General Info Date of Service: 08/27/19 Admission Dx/Problem (Free Text): Admission Diagnosis/Problem Admission Diagnosis/Problem Abdominal pain Subjective Update: Was initially doing well this morning and eager to go home. This afternoon had significant pain return to abdomen and became very anxious. [place] she was scared to go home due to the pain she was still having along with nausea. Functional Status: Reports: Ambulating, Urinating. Denies: Pain Controlled, Tolerating Diet - Review of Systems General: Reports: No Symptoms. Denies: Weakness, Fatigue, Malaise HEENT: Reports: No Symptoms. Denies: Headaches, Sore Throat, Visual Changes Pulmonary: Reports: No Symptoms. Denies: Shortness of Breath Cardiovascular: Reports: No Symptoms. Denies: Chest Pain Gastrointestinal: Reports: Abdominal Pain, Nausea Genitourinary: Reports: No Symptoms Musculoskeletal: Reports: No Symptoms Skin: Reports: No Symptoms Neurological: Reports: No Symptoms Psychiatric: Reports: Anxiety - Patient Data Vitals - Most Recent: Last Vital Signs Temp 97.1 F 08/27/19 12:00 Pulse 73 08/27/19 12:00 Resp 20 08/27/19 12:00 BP 154/78 H 08/27/19 12:00 Pulse Ox 97 08/27/19 12:00 Weight - Most Recent: 81 kg I&O - Last 24 Hours: Intake & Output 08/26/19 08/27/19 08/27/19 22:59 06:59 14:59 Intake Total 252 099 9322 Output Total 450 850 Balance 154 -410 2190 Lab Results Last 24 Hours: Laboratory Results - last 24 hr 08/27/19 08/27/19 Range/Units 06:12 06:12 WBC 10.63 (4.0-11.0) K/uL RBC 4.00 L (4.30-5.90) M/uL Hgb 12.5 (12.0-16.0) g/dL Hct 38.8 (36.0-46.0) % MCV 97.0 (80.0-98.0) fL MCH 31.3 (27.0-32.0) pg MCHC 32.2 (31.0-37.0) g/dL RDW Std Deviation 51.4 (28.0-62.0) fl RDW Coeff of Negrita 14 (11.0-15.0) % Plt Count 240 (150-400) K/uL MPV 10.10 (7.40-12.00) fL Neut % (Auto) 76.9 (48.0-80.0) % Lymph % (Auto) 16.6 (16.0-40.0) % [place] % (Auto) 4.5 (0.0-15.0) % Eos % (Auto) 1.8 (0.0-7.0) % Baso % (Auto) 0.2 (0.0-1.5) % Neut # (Auto) 8.2 H (1.4-5.7) K/uL Lymph # (Auto) 1.8 (0.6-2.4) K/uL [place] # (Auto) 0.5 (0.0-0.8) K/uL Eos # (Auto) 0.2 (0.0-0.7) K/uL Baso # (Auto) 0.0 (0.0-0.1) K/uL Nucleated RBC % 0.0 /100WBC Nucleated RBCs # 0 K/uL Sodium 139 (136-145) mmol/L Potassium 3.8 (3.5-5.1) mmol/L Chloride 108 H (98-107) mmol/L Carbon Dioxide 22.5 (21.0-32.0) mmol/L BUN 3 L (7.0-18.0) mg/dL Creatinine 0.9 (0.6-1.0) mg/dL Est Cr Clr Drug Dosing 57.30 mL/min Estimated GFR (MDRD) > 60.0 ml/min Glucose 107 H (74-106) mg/dL Calcium 8.0 L (8.5-10.1) mg/dL Total Bilirubin 0.3 (0.2-1.0) mg/dL AST 17 (15-37) IU/L ALT 18 (14-63) IU/L Alkaline Phosphatase 58 (46-116) U/L Total Protein 5.7 L (6.4-8.2) g/dL Albumin 2.8 L (3.4-5.0) g/dL Globulin 2.9 (2.6-4.0) g/dL Albumin/Globulin Ratio 1.0 (0.9-1.6) Danie Results Last 24 Hours: Microbiology 08/25/19 17:10 Urine Culture - Final Urine, Bladder MIXED YAHAIRA >100,000 CFU/ML 08/25/19 18:50 Aerobic Blood Culture - Preliminary Blood - Venous - Lab Draw NO GROWTH AFTER 1 DAY Anaerobic Blood Culture - Final 08/25/19 18:43 Aerobic Blood Culture - Preliminary Blood - Venous NO GROWTH AFTER 1 DAY Anaerobic Blood Culture - Preliminary NO GROWTH AFTER 1 DAY Med Orders - Current: Current Medications Acetaminophen (Tylenol) 650 mg PO Q4H PRN PRN Reason: Pain Potassium Chloride/Sodium Chloride (1/2 Ns With 20 Meq Kcl) 1,000 mls @ 125 mls /hr IV ASDIRECTED [facility] Last Admin: 08/27/19 07:15 Dose: 125 mls/hr Morphine Sulfate (Morphine) 2 mg IVPUSH Q4H PRN PRN Reason: Pain Non-Formulary Medication (Escitalopram Oxalate [Lexapro]) 5 mg PO DAILY [facility] Ondansetron HCl (Zofran) 4 mg IVPUSH Q4H PRN PRN Reason: Nausea Last Admin: 08/27/19 11:34 Dose: 4 mg Discontinued Medications Gadobenate Dimeglumine (Multihance) 16 ml IVPUSH ONETIME STA Stop: 08/26/19 11:47 Last Admin: 08/26/19 11:48 Dose: 16 ml Sodium Chloride (Normal Saline) 1,000 mls @ 999 mls/hr IV BOLUS ONE Stop: 08/25/19 16:43 Last Admin: 08/25/19 16:13 Dose: 999 mls/hr Sodium Chloride (Normal Saline) 1,000 mls @ 999 mls/hr IV STAT ONE Stop: 08/25/19 19:26 Last Admin: 08/25/19 18:56 Dose: 999 mls/hr Piperacillin Sod/Tazobactam (Sod 3.375 gm/ Sodium Chloride) 50 mls @ 100 mls/ hr IV Q6H [facility] Last Admin: 08/26/19 13:54 Dose: 100 mls/hr Sodium Chloride (Normal Saline) 1,000 mls @ 125 mls/hr IV ASDIRECTED [facility] Last Admin: 08/26/19 08:04 Dose: 125 mls/hr Vancomycin HCl 1.25 gm/ Sodium (Chloride) 250 mls @ 166.667 mls/hr IV Q12H [facility] Last Admin: 08/25/19 23:11 Dose: Not Given Vancomycin HCl 1.25 gm/ Sodium (Chloride) 250 mls @ 166.667 mls/hr IV Q12H [facility] Vancomycin HCl 1.25 gm/ Sodium (Chloride) 250 mls @ 166.667 mls/hr IV Q12H [facility] Last Admin: 08/26/19 10:17 Dose: 166.667 mls/hr Sodium Chloride (Normal Saline (Advbag)) Confirm Administered Dose 250 mls @ as directed .ROUTE .STK-MED ONE Stop: 08/25/19 21:58 Last Admin: 08/25/19 22:14 Dose: Not Given Iopamidol (Isovue Multipack-370 (76%)) 100 ml IVPUSH ONETIME STA Stop: 08/25/19 17:33 Last Admin: 08/25/19 17:32 Dose: 100 ml Lorazepam (Ativan) 1 mg IVPUSH ONETIME ONE Stop: 08/25/19 15:57 Last Admin: 08/25/19 16:14 Dose: 1 mg Lorazepam (Ativan) 0.5 mg PO ONETIME ONE Stop: 08/27/19 12:19 Last Admin: 08/27/19 12:23 Dose: 0.5 mg Morphine Sulfate (Morphine) 2 mg IVPUSH Q2H PRN PRN Reason: Pain (severe 7-10) Last Admin: 08/26/19 13:06 Dose: 2 mg Morphine Sulfate (Morphine) 2 mg IVPUSH Q2H PRN PRN Reason: Pain (severe 7-10) Last Admin: 08/27/19 04:41 Dose: 2 mg Ondansetron HCl (Zofran) 4 mg IVPUSH ONETIME ONE Stop: 08/25/19 15:44 Last Admin: 08/25/19 16:14 Dose: 4 mg Vancomycin HCl (Pharmacy To Dose - Vancomycin) 1 dose .XX ASDIRECTED [facility] Vancomycin HCl (Vancomycin) Confirm Administered Dose 1.25 gm .ROUTE .STK-MED ONE Stop: 08/25/19 21:57 Last Admin: 08/25/19 22:14 Dose: Not Given - Exam General: Alert, Oriented, Mild Distress (anixety) Neck: Supple Lungs: Clear to Auscultation, Normal Respiratory Effort Cardiovascular: Regular Rate, Regular Rhythm GI/Abdominal Exam: Normal Bowel Sounds, Soft, Tender (epigastric region) Extremities: Normal Inspection, Normal Range of Motion, Non-Tender, No Pedal Edema Neurological: No New Focal Deficit Psy/Mental Status: Alert, Normal Affect, Normal Mood - Problem List & Annotations (1) Abdominal pain SNOMED Code(s): 78550781 Code(s): R10.9 - UNSPECIFIED ABDOMINAL PAIN Status: Acute Current Visit: Yes Qualifiers: Abdominal location: epigastric Qualified Code(s): R10.13 - Epigastric pain (2) Leukocytosis SNOMED Code(s): 797258525, 280295661 Code(s): D72.829 - ELEVATED WHITE BLOOD CELL COUNT, UNSPECIFIED Status: Acute Current Visit: Yes Qualifiers: Leukocytosis type: unspecified Qualified Code(s): D72.829 - Elevated white blood cell count, unspecified (3) Tobacco abuse SNOMED Code(s): 067355799 Code(s): Z72.0 - TOBACCO USE Status: Acute Current Visit: Yes (4) Alcohol abuse SNOMED Code(s): 55893470 Code(s): F10.10 - ALCOHOL ABUSE, UNCOMPLICATED Status: Acute Current Visit: Yes (5) Anxiety SNOMED Code(s): 42720147 Code(s): F41.9 - ANXIETY DISORDER, UNSPECIFIED Status: Acute Current Visit: Yes - Problem List Review Problem List Initiated/Reviewed/Updated: Yes - My Orders Last 24 Hours: My Active Orders 08/27/19 08:28 Acetaminophen [Tylenol] 650 mg PO Q4H PRN 08/27/19 13:41 Morphine 2 mg IVPUSH Q4H PRN 08/27/19 13:45 Escitalopram Oxalate [Lexapro] 5 mg PO DAILY 08/27/19 Lunch NPO [Nothing Per Oral Diet] [DIET] 08/28/19 05:11 CBC WITH AUTO DIFF [HEME] AM COMPREHENSIVE METABOLIC PN,CMP [CHEM] AM - Plan Plan:: 44 year old female admitted for abdominal pain with leukocytosis. 1. Abdominal pain: MRI of abdomen ordered for today shows similar findings to CT scan, see Dr Ling consultation. Pain was improved this morning. Now this afternoon patient is extremely anxious and pain is worse. Discharge canceled for now. Ativan PO given to help with anxiety. Will restart bowel rest and IVFs. Monitor. Due to anxiety will consult Dr Shields, if available. Consider psychosomatic pain as well since pain increases as anxiety also increases. VTE prophylaxis: SCDs and ambulation Dispo: 1-2 days pending improvement
[2019-08-27] MEDS: Escitalopram 10 MG Tab PO SCH (14:24)
[2019-08-27] MEDS: Sodium Chloride 0.45% 1,000 ML IV SCH ×2 (14:25→22:45)
[2019-08-27] MEDS ORDERED: LORazepam 2 MG/ML SDV IVPUSH ONE (15:48)
[2019-08-27] MEDS ORDERED: LORazepam 2 MG/ML SDV IVPUSH PRN (20:29)
[2019-08-28 06:16] LABS: BLOOD UREA NITROGEN,BUN 3 mg/dL (7.0-18.0); CARBON DIOXIDE,CO2 24.5 mmol/L (21.0-32.0); CHLORIDE,CL 101 mmol/L (98-107); GLUCOSE RANDOM 90 mg/dL (74-106); POTASSIUM,K 3.3 mmol/L (3.5-5.1); SODIUM,NA 138 mmol/L (136-145)
[2019-08-28] MEDS: Sodium Chloride 0.45% 1,000 ML IV SCH (07:11)
[2019-08-28] MEDS: Escitalopram 10 MG Tab PO SCH (09:05)
--- NOTE | 2019-08-29 18:13 | CONS ---
DATE OF CONSULTATION: 08/28/2019 DATE OF : 1975 PRIMARY CARE PHYSICIAN: Ellen Ayala NP Site where the services are provided is [facility] in [place], [place]. Site with the services are provided from our office is in [facility]. Length of service for this 60-minute inpatient telemedicine event is 60 minutes. IDENTIFICATION: The patient is a 44-year-old female who was admitted to the inpatient med/surg unit at [facility] in [place], [place]. She was seen for psychiatric consultation per the request of staff attending, Dr. Sánchez and his treatment team. CHIEF COMPLAINT: "I believe I had pancreatitis and my white blood cell count is low. I get bad anxiety like crazy." HISTORY OF PRESENT ILLNESS: The patient is a 44-year-old female who our staff is reporting has had 2 admissions over the recent weeks for chronic abdominal pain of unknown etiology. The patient is stating that since she has been in the hospital the second time around her, pain seems to be improving, but she still "have a lots of anxiety." In fact, the patient is stating that she is "depressed and anxious all the time." The patient does state they are complicating her clinical pictures to the fact that she uses alcohol and spice cannabis. She states that she has been using about 6-pack a day plus hard liquor in addition to the 6-pack, and then she is also using about 2 bowls of marijuana a day, and then using derivative of the marijuana called spice, which is apparently more potent than the regular cannabis. The patient states she is about 12 days sober. She states that she has a lot of problems right now with sleep. She cannot get more than 4 hours of sleep per 24-hour period. She states her mind is racing all the time and she has lot of ruminations. She states she has some cleaning tendencies, but she does not feel that arises to the level of out of control compulsive behavior, she just likes to have things clean. She denies that she is suicidal or homicidal. She denies any psychotic, delusional, or paranoid symptoms. She has been on Lexapro 5 mg a day for 4 months, but she feels that this medication has been completely ineffective for and she wants to get off it and try something new. She does state that she is willing to try and put aside the alcohol and the marijuana if that will help her feel better, though she does acknowledge that she has been using marijuana for such a long time that this will be a hard challenge for her, much more so she believes than the alcohol use, but she states "I will give it a try." MEDICATIONS AT TIME OF PRESENTATION: Lexapro 5 mg. The patient has been on this for 4 months. ALLERGIES: No known drug allergies. PAST MEDICAL HISTORY: Abdominal pain of unknown etiology. REVIEW OF SYSTEMS: Aside from GI, all other major organ systems are negative at this point in time for acute difficulties and complications. FAMILY PSYCHIATRIC AND CD HISTORY: The patient reports mother has a history of depression and anxiety. She also has a brother, who has a history of bipolar affect disease and cannabis dependence. PAST PSYCHIATRIC AND CD HISTORY: The patient denies any previous psychiatric hospitalizations or chemical dependency treatments. She reports that she has been using cannabis for sometime and her longest sobriety has been for about 2 months. She has never gone to . She has actually been sober in the past, though from the spice cannabis for about 8 years. Again, she denied any previous suicide attempts, self-injurious, behaviors, or eating disorder history. PAST PSYCHIATRIC MEDICATION HISTORY: Include Ativan which was given to her in the emergency room setting and did help her. SOCIAL HISTORY: The patient was born and raised in [place], [place]. She is the 3rd of 3 siblings, having 2 brothers, 1 is . The patient's parents were throughout her childhood and adolescence. Father was a heavy equipment supervisor while the patient was growing up. Mother is a homemaker. The patient's highest level of education is the 12th grade. The patient has been in current relationship for 1 year. She identifies herself as a lesbian in terms of her sexual predisposition and she has been living with a girlfriend and the girlfriend's 2 children in [place] for the past year. The patient denies having biological children of her own. She denies any prior service or any current legal difficulties. She is Gnosticist in terms of her face formation. She enjoys watching football, NASCAR, fishing, and bowling in her spare time. MENTAL STATUS EXAM: The patient is a 44-year-old soft spoken white female in no apparent distress. Speech is of regular rate and rhythm. The patient is cognitively oriented x3. Psychomotor activities within normal limits. There is no abnormal motor movements or tics observed. Gait and station are not observed as the patient was seated at the time of the interview. Mood is depressed and anxious. Affect is consistent with state of mood, somewhat restricted and anxious appearing, but cooperative overall for the purposes of the inpatient consult. There is no behavioral or stated evidence of acute suicidal or homicidal ideation or acute psychotic, delusional, or paranoid symptoms. Thought processes are significant for racing thoughts or ruminations. There are no manic symptoms or loose associations evident. Judgment and insight appear unimpaired at this point in time. Motivation for help appears fair to good. VITAL SIGNS: 154/78, 73, 20, 97.1 degrees. IMPRESSION: Portage I: 1. Major depressive disorder, F32.2. 2. Anxiety disorder, not otherwise specified, F41.9. 3. Cannabis dependence, F12.20. 4. Suspected alcohol dependence, F10.20. 5. Rule out obsessive-compulsive disorder. 6. Rule out bipolar affect disease mixed type. 7. Rule out generalized anxiety disorder. Portage II: None. Portage III: Abdominal pain of unknown etiology, currently being worked up. Portage IV: Severe. Portage V: 55 to 60. PLAN: 1. Discontinue Lexapro. 2. Begin trial of Remeron 30 mg at bedtime to help with symptoms of depression and anxiety as well as sleep initiation and maintenance and also to see if this will help settle the patient's GI system down. Sometimes this medication has a dampening effect in a positive way on nausea symptoms. 3. Begin trial of Topamax 25 mg b.i.d. for anxiety reduction and mood stability. 4. The patient apprised of the benefits and side effects of her newly initiated psychiatric medication regimen. She acknowledges her understanding and said she has no further questions by the end of the inpatient consult. 5. Sobriety. 6. Caffeine restrictions. 7. The patient is instructed to maintain good hydration status. 8. Recommend the patient to follow up with AA to help with sobriety maintenance as she is medically stabilized and ready for discharge back to the community. 9. Recommend the patient follow up with outpatient psychiatry once she is medically stabilized and discharged back to the community to assess overall function and efficacy of her newly initiated psychiatric medication regimen. 10.Recommend that the patient is unable to maintain sobriety on her own that she consider treatment options of possibly going forward on either an outpatient or inpatient basis. 11.We will continue to follow up with the patient on an as needed basis while she remains on the inpatient med/surg unit. 12.We will follow up with the patient sooner if any complications in the interim. 13.Crisis plan is in place. SEBAS / CJ /[id number]
== END 2019-08-28 15:50 | disposition home or self-care (01) ==
LOC: MW.ED 15:31 → MW.MS 20:01
PROVIDERS: ADMIT Internal Medicine; ATTEND Internal Medicine
DX: R10.13 Epigastric pain (principal); G89.29 Other chronic pain; D72.829 Elevated white blood cell count, unspecified; F10.10 Alcohol abuse, uncomplicated; F17.210 Nicotine dependence, cigarettes, uncomplicated; F32.9 Major depressive disorder, single episode, unspecified; F41.9 Anxiety disorder, unspecified; F12.20 Cannabis dependence, uncomplicated; J44.9 Chronic obstructive pulmonary disease, unspecified; Z79.899 Other long term (current) drug therapy
CPT/HCPCS: 36415; 71046; 71046-26; 74177; 74177-26; 74183; 74183-26; 80053; 81003; 83605; 83690; 85025; 87040; 87086; 93005; 96361; 96365; 96367; 96375; 96376; 99285; 99285-25; A9270-GY; A9577; G0378; J2060; J2270; J2405; J2543; J3370; J3480; J7030; J7040; J7050; Q9967

== ENCOUNTER 2019-10-15 06:31 | Day surgery (SDC) | payer MEDICAID ==
[~2019-10-15 06:31] MED LIST changes: +ceFAZolin 2 GM in Premix Bag 1 BAG IV ONE
[2019-10-15] MEDS ORDERED: Octyl 2-Cyanoacrylate 1 Tube ONE (07:20)
[2019-10-15] MEDS ORDERED: Bupivacaine 25%/EPINEPHrine/PF 30 ML ONE (07:20)
[2019-10-15] MEDS ORDERED: Midazolam 1 MG/ML 2 ML SDV ONE (07:23)
[2019-10-15] MEDS ORDERED: fentaNYL 100 MCG/2 ML SDV ONE ×2 (07:23→07:26)
[2019-10-15] MEDS ORDERED: Propofol 200 MG/20 ML SDV ONE ×2 (07:23→07:26)
[2019-10-15] MEDS ORDERED: Ondansetron 4 MG/2 ML SDV ONE ×2 (07:23→07:26)
--- NOTE | 2019-10-15 07:24 | PCM.PREANE ---
Preanesthetic Assessment - Anesthesia/Transfusion/Family Hx Anesthesia History: Prior Anesthesia Without Reaction Family History of Anesthesia Reaction: No Transfusion History: No Prior Transfusion(s) Intubation History: Unknown - Review of Systems General: No Symptoms Pulmonary: Other (sx of COPD and SABI (not formally diagnosed, no CPAP)) Cardiovascular: No Symptoms Gastrointestinal: No Symptoms Neurological: No Symptoms Other: Reports: None - Physical Assessment NPO Status Date: 10/14/19 Height: 5 ft 4 in Weight: 83.461 kg ASA Class: 3 Airway Class: Mallampati = 1 Dentition: Reports: Normal Dentition ROM/Head Extension: Full Lungs: Clear to Auscultation, Normal Respiratory Effort Cardiovascular: Regular Rate, Regular Rhythm - Lab Values: Laboratory Last Values Urine HCG, Qual NEGATIVE (NEGATIVE) 10/15/19 06:50 - Allergies Allergies/Adverse Reactions: Allergies Allergy/AdvReac Type Severity Reaction Status Date / Time No Known Allergies Allergy Verified 08/26/19 01:03 - Blood Blood Available: No - Anesthesia Plan Pre-Op Medication Ordered: None - Acknowledgements Anesthesia Type Planned: General Anesthesia Pt an Appropriate Candidate for the Planned Anesthesia: Yes Alternatives and Risks of Anesthesia Discussed w Pt/Guardian: Yes Pt/Guardian Understands and Agrees with Anesthesia Plan: Yes Additional Comments: PMH: anx/dep, COPD-unk severity, SABI-unk severity, "Overlap syndrome", s/p hyst PLAN: tiva with propofol and local anesthetic, NO benzos and NO opioids, MASK or LMA per 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 PreAnesthesia Questionnaire - Past Health History Medical/Surgical History: Denies Medical/Surgical History HEENT History: Reports: Impaired Vision, Other (See Below) Other HEENT History: wears glasses Cardiovascular History: Reports: None Respiratory History: Reports: COPD, Other (See Below) Other Respiratory History: undiagnosed sleep apnea Gastrointestinal History: Reports: Colon Polyp, GERD, Irritable Bowel Syndrome Other Gastrointestinal History: hx gastric ulcer Genitourinary History: Reports: Renal Calculus Musculoskeletal History: Reports: None Neurological History: Reports: None Psychiatric History: Reports: Anxiety, Depression Endocrine/Metabolic History: Reports: Obesity/BMI 30+ Hematologic History: Reports: None Immunologic History: Reports: None Oncologic (Cancer) History: Reports: None Dermatologic History: Reports: None - Infectious Disease History Infectious Disease History: Reports: Chicken Pox - Past Surgical History Head Surgeries/Procedures: Reports: None HEENT Surgical History: Reports: None Cardiovascular Surgical History: Reports: None Respiratory Surgical History: Reports: None GI Surgical History: Reports: Cholecystectomy, Colonoscopy Female Surgical History: Reports: Hysterectomy, Lithotripsy/ESWL Endocrine Surgical History: Reports: None Neurological Surgical History: Reports: None Musculoskeletal Surgical History: Reports: None Oncologic Surgical History: Reports: None Dermatological Surgical History: Reports: None - SUBSTANCE USE Smoking Status *Q: Current Every Day Smoker Tobacco Use Within Last Twelve Months: Cigarettes Recreational Drug Type: Reports: Marijuana/Hashish - HOME MEDS Home Medications: Home Meds Glycopyrrolate/Formoterol Fum [Bevespi Aerosphere Inhaler] 2 puff INH BID [History] Mirtazapine [Remeron] 30 mg PO BEDTIME #30 tab 08/28/19 [Rx] Topiramate [Topamax] 25 mg PO BID #60 tab 08/28/19 [Rx] Albuterol [Ventolin HFA] 1 - 2 puff IN Q4H PRN 10/08/19 [History] Cholecalciferol (Vitamin D3) [Vitamin D3] 2 tab PO DAILY 10/08/19 [History] Dicyclomine HCl [Bentyl] 20 mg PO Q6H PRN 10/08/19 [History] - CURRENT (IN HOUSE) MEDS Current Meds: Current Medications Lactated Ringer's (Ringers, Lactated) 1,000 mls @ 125 mls/hr IV ASDIRECTED MICHAEL Discontinued Medications Cefazolin Sodium/Dextrose 2 gm (/ Premix) 50 mls @ 100 mls/hr IV ONETIME ONE Stop: 10/15/19 05:29
[2019-10-15] MEDS ORDERED: Lidocaine 2% 5 ML SDV ONE (07:26)
--- NOTE | 2019-10-15 08:41 | PCM.OPNOTE ---
- General Post-Op/Procedure Note Date of Surgery/Procedure: 10/15/19 Operative Procedure(s): excisional biopsy R arm mass Findings: poorly encapsulated small lipoma, 8 mm in diameter;[id number] Pre Op Diagnosis: r arm mass Post-Op Diagnosis: Same Anesthesia Technique: Local, MAC Primary Surgeon: Jonnathan Rubio Pathology: sent Complications: None Condition: Good
--- NOTE | 2019-10-15 09:04 | PCM.POSTAN ---
POST ANESTHESIA ASSESSMENT - MENTAL STATUS Mental Status: Alert, Oriented - VITAL SIGNS Vital Signs: Last Vital Signs Temp 96.8 F 10/15/19 08:30 Pulse 66 10/15/19 08:55 Resp 14 10/15/19 08:55 BP 88/48 L 10/15/19 08:55 Pulse Ox 95 10/15/19 08:55 - RESPIRATORY Respiratory Status: Respiratory Rate WNL, Airway Patent, O2 Saturation Stable - CARDIOVASCULAR CV Status: Pulse Rate WNL, Blood Pressure Stable - GASTROINTESTINAL GI Status: No Symptoms - PAIN Pain Score: 0 - POST OP HYDRATION Hydration Status: Adequate & Stable
--- NOTE | 2019-10-15 09:19 | PCM48HPAN ---
Post Anesthesia Note - EVALUATION WITHIN 48HRS OF ANESTHETIC Vital Signs in Normal Range: Yes Patient Participated in Evaluation: Yes Respiratory Function Stable: Yes Airway Patent: Yes Cardiovascular Function Stable: Yes Hydration Status Stable: Yes Pain Control Satisfactory: Yes Nausea and Vomiting Control Satisfactory: Yes Mental Status Recovered: Yes Vital Signs: Last Vital Signs Temp 97.2 F 10/15/19 09:00 Pulse 64 10/15/19 09:00 Resp 15 10/15/19 09:00 BP 99/57 L 10/15/19 09:00 Pulse Ox 97 10/15/19 09:00
--- NOTE | 2019-10-15 10:58 | OR ---
SURGEON: Jonnathan Rubio MD DATE OF PROCEDURE: 10/15/2019 PREOPERATIVE DIAGNOSIS: Right arm mass. POSTOPERATIVE DIAGNOSIS: Right arm mass. PROCEDURE PERFORMED: Excisional biopsy. PRIMARY SURGEON: Jonnathan Rubio MD. COMPLICATIONS: None. FINDING: An 8 mm diameter lipoma appearance mass excised en bloc, sent for pathology. DESCRIPTION OF PROCEDURE: The patient was taken to the operating room, placed in the supine position. Upon induction of mild general sedation, the patient was prepped and draped in a sterile fashion and time-out was being called. Procedure identified, patient identified, and antibiotic given. Procedure then started. Local anesthetic, 1% lidocaine with epi, infiltrated. A longitudinal incision of 3.1 cm was made and dissection deep down, found the mass. The location of the mass is very very close to the upper shoulder, almost at the shoulder. The mass was located and carefully dissected from surrounding structures and sent for pathology. It is about 8 mm lipoma appearance mass and poorly encapsulated. Good hemostasis achieved by using electrocautery. The wound was then closed with 3-0 Ethilon running baseball stitch followed with appropriate dressing. The patient was awakening and transferred to recovery room in hemodynamically stable condition. The patient tolerated the procedure well. There were no intraoperative complications. Dr. Rubio was present through the whole procedure. MARIANELA / CJ /[id number]
== END 2019-10-15 09:27 | disposition home or self-care (01) ==
LOC: MW.SDS 06:31
PROVIDERS: ATTEND Surgery
DX: D17.21 Benign lipomatous neoplasm of skin and subcutaneous tissue of right arm (principal); J44.9 Chronic obstructive pulmonary disease, unspecified; K21.9 Gastro-esophageal reflux disease without esophagitis; F32.9 Major depressive disorder, single episode, unspecified; E55.9 Vitamin D deficiency, unspecified; F41.9 Anxiety disorder, unspecified; G47.33 Obstructive sleep apnea (adult) (pediatric); F17.210 Nicotine dependence, cigarettes, uncomplicated; E66.9 Obesity, unspecified; Z68.31 Body mass index [BMI] 31.0-31.9, adult; Z79.51 Long term (current) use of inhaled steroids; Z79.899 Other long term (current) drug therapy
CPT/HCPCS: 24071; 81025; 88304; J2001; J2250; J2405; J2704; J3010; J7120; 00400; A9270-GY

== ENCOUNTER 2020-03-15 12:09 | Emergency (ER) | payer MEDICAID ==
--- NOTE | 2020-03-15 12:24 | EDM.PDOC ---
ED HPI GENERAL MEDICAL PROBLEM - General Chief Complaint: Lower Extremity Injury/Pain Stated Complaint: LEFT KNEE INJURY Time Seen by Provider: 03/15/20 12:24 Source of Information: Reports: Patient History Limitations: Reports: No Limitations - History of Present Illness INITIAL COMMENTS - FREE TEXT/NARRATIVE: HISTORY AND PHYSICAL: History of present illness: Patient is a 44-year-old female presents to the ED With complaint of left knee, hip, and elbow injury. Patient states she was running while holding her girlfriends 4-year-old daughter and another child grab the daughters legs causing them both to fall. Patient fell on to her left side scraping her left elbow and knee on the concrete. She states she has been able to walk on the left leg but having a lot of pain. She denies any pain, numbness, or tingling distal to her left knee. She denies head injury or LOC. Review of systems: As per history of present illness and below otherwise all systems reviewed and negative. Past medical history: As per history of present illness and as reviewed below otherwise noncontributory. Surgical history: As per history of present illness and as reviewed below otherwise noncontributory. Social history: No reported history of drug or alcohol abuse. Family history: As per history of present illness and as reviewed below otherwise noncontributory. Physical exam: General: Patient sitting comfortably in no acute distress and nontoxic appearing HEENT: Atraumatic, normocephalic, pupils reactive, negative for conjunctival pallor or scleral icterus, mucous membranes moist, throat clear, neck supple, nontender, trachea midline. No meningeal signs. Lungs: Clear to auscultation, breath sounds equal bilaterally, chest nontender. Heart: S1S2, regular, negative for clicks, rubs, or overt murmur. Abdomen: Soft, nondistended, nontender. Negative for masses or hepatosplenomegaly. Negative for costovertebral tenderness. No rigidity, rebound , guarding. Pelvis: Stable nontender. Genitourinary: Deferred. Rectal: Deferred. Extremities: abrasion to the posterior left elbow. No obvious deformity or tenderness to palpation. Abrasion to the left anterior knee with tenderness to palpation of the patella and lateral knee. No distal tenderness to palpation. Pain to palpation of left lateral hip. CMS intact distally. negative for cords or calf pain. Neurovascular unremarkable. Neuro: Awake, alert, oriented. Cranial nerves II through XII unremarkable. Cerebellum unremarkable. Motor and sensory unremarkable throughout. Exam nonfocal. Notes: Diagnostics: x-ray left knee and hip Therapeutics: tdap Prescriptions: none Impression: Left knee injury, left arm injury, left hip pain Plan: 1. Ice, elevate, and motrin or tylenol as needed 2. Follow up with primary care provider, please call the number provided to schedule an appointment 3. Return to ED as needed as discussed Definitive disposition and diagnosis as appropriate pending reevaluation and review of above. Left Knee Pain Score (Numeric/FACES): 10 - Related Data Allergies Allergy/AdvReac Type Severity Reaction Status Date / Time No Known Allergies Allergy Verified 03/15/20 12:24 Home Meds: Home Meds Glycopyrrolate/Formoterol Fum [Bevespi Aerosphere Inhaler] 2 puff INH BID [History] Mirtazapine [Remeron] 30 mg PO BEDTIME #30 tab 08/28/19 [Rx] Topiramate [Topamax] 25 mg PO BID #60 tab 08/28/19 [Rx] Albuterol [Ventolin HFA] 1 - 2 puff IN Q4H PRN 10/08/19 [History] Cholecalciferol (Vitamin D3) [Vitamin D3] 2 tab PO DAILY 10/08/19 [History] Dicyclomine HCl [Bentyl] 20 mg PO Q6H PRN 10/08/19 [History] Past Medical History - Past Health History Medical/Surgical History: Denies Medical/Surgical History HEENT History: Reports: Impaired Vision, Other (See Below) Other HEENT History: wears glasses Cardiovascular History: Reports: None Respiratory History: Reports: COPD, Other (See Below) Other Respiratory History: undiagnosed sleep apnea Gastrointestinal History: Reports: Colon Polyp, GERD, Irritable Bowel Syndrome Other Gastrointestinal History: hx gastric ulcer Genitourinary History: Reports: Renal Calculus Musculoskeletal History: Reports: None Neurological History: Reports: None Psychiatric History: Reports: Anxiety, Depression Endocrine/Metabolic History: Reports: Obesity/BMI 30+ Hematologic History: Reports: None Immunologic History: Reports: None Oncologic (Cancer) History: Reports: None Dermatologic History: Reports: None - Infectious Disease History Infectious Disease History: Reports: Chicken Pox - Past Surgical History Head Surgeries/Procedures: Reports: None HEENT Surgical History: Reports: None Cardiovascular Surgical History: Reports: None Respiratory Surgical History: Reports: None GI Surgical History: Reports: Cholecystectomy, Colonoscopy Female Surgical History: Reports: Hysterectomy, Lithotripsy/ESWL Endocrine Surgical History: Reports: None Neurological Surgical History: Reports: None Musculoskeletal Surgical History: Reports: None Oncologic Surgical History: Reports: None Dermatological Surgical History: Reports: None Social & Family History - Family History Family Medical History: Noncontributory - Caffeine Use Caffeine Use: Reports: Soda Review of Systems - Review of Systems Review Of Systems: Comprehensive ROS is negative, except as noted in HPI. ED EXAM, GENERAL - Physical Exam Exam: See Below (see dictation) Course - Vital Signs Last Recorded V/S: Last Vital Signs Temp 97.5 F 03/15/20 12:25 Pulse 88 03/15/20 12:25 Resp 16 03/15/20 12:25 BP 115/76 03/15/20 12:25 Pulse Ox 98 03/15/20 12:25 - Orders/Labs/Meds Orders: Active Orders 24 hr Category Date Time Status Vaccines to be Administered [RC] PER UNIT ROUTINE Care 03/15/20 12:54 Ordered Meds: Medications Discontinued Medications Generic Name Dose Route Start Last Admin Trade Name Freq PRN Reason Stop Dose Admin Diphtheria/Tetanus/Acell Pertussis 0.5 ml 03/15/20 12:54 Adacel IM 03/15/20 12:55 .ONCE ONE Departure - Departure Time of Disposition: 13:43 Disposition: Home, Self-Care 01 Condition: Good Clinical Impression: Injury of left elbow, Left knee injury, Left hip pain - Discharge Information Referrals: Ellen Ayala NP [Primary Care Provider] - Forms: ED Department Discharge Additional Instructions: The following information is given to patients seen in the emergency department who are being discharged to home. This information is to outline your options for follow-up care. We provide all patients seen in our emergency department with a follow-up referral. The need for follow-up, as well as the timing and circumstances, are variable depending upon the specifics of your emergency department visit. If you don't have a primary care physician on staff, we will provide you with a referral. We always advise you to contact your personal physician following an emergency department visit to inform them of the circumstance of the visit and for follow-up with them and/or the need for any referrals to a consulting specialist. The emergency department will also refer you to a specialist when appropriate. This referral assures that you have the opportunity for follow-up care with a specialist. All of these measure are taken in an effort to provide you with optimal care, which includes your follow-up. Under all circumstances we always encourage you to contact your private physician who remains a resource for coordinating your care. When calling for follow-up care, please make the office aware that this follow-up is from your recent emergency room visit. If for any reason you are refused follow-up, please contact the [facility] Emergency Department at and asked to speak to the emergency department charge nurse. [facility] [address] [place] [id number] [place] [address] 1. Ice, elevate, and motrin or tylenol as needed 2. Follow up with primary care provider, please call the number provided to schedule an appointment 3. Return to ED as needed as discussed Sepsis Event Note - Focused Exam Vital Signs: Vital Signs Temp Pulse Resp BP Pulse Ox 03/15/20 12:25 97.5 F 88 16 115/76 98 Date Exam was Performed: 03/15/20 Time Exam was Performed: 13:49 - My Orders Last 24 Hours: My Active Orders 03/15/20 12:54 Vaccines to be Administered [RC] PER UNIT ROUTINE - Assessment/Plan Last 24 Hours: My Active Orders 03/15/20 12:54 Vaccines to be Administered [RC] PER UNIT ROUTINE
[2020-03-15] MEDS ORDERED: Diphtheria,Pertussis(Acell),Tetanus Vaccine 0.5 ML Syringe IM ONE (12:54)
--- NOTE | 2020-03-15 13:41 | CR ---
Left knee: AP, lateral and sunrise patellar views left knee were obtained. Comparison: No prior knee study. Moderate medial joint space narrowing is seen. Lateral joint spaces preserved. No joint effusion is seen. Patellofemoral joint appears within normal limits. No acute fracture or other abnormality is identified. Impression: 1. Medial joint space narrowing. Diagnostic code #2 This report was dictated in MDT
--- NOTE | 2020-03-15 13:41 | CR ---
Pelvis and left hip: AP view of the pelvis was obtained as well as frog leg lateral view of the left hip. Comparison: No previous pelvis or hip study is available. Joint spaces within both hips are preserved. Sacroiliac joints appear within normal limits. No fracture or other bony abnormality is appreciated. Impression: 1. Nothing acute is seen on AP pelvis or on frog-leg lateral left hip exam. Diagnostic code #1 This report was dictated in MDT Diagnostic code #2 This report was dictated in MDT
== END 2020-03-15 14:03 | disposition home or self-care (01) ==
LOC: MW.ED 12:09
DX: S80.212A Abrasion, left knee, initial encounter (principal); S50.312A Abrasion of left elbow, initial encounter; M25.552 Pain in left hip; J44.9 Chronic obstructive pulmonary disease, unspecified; F41.9 Anxiety disorder, unspecified; Z23 Encounter for immunization; F32.9 Major depressive disorder, single episode, unspecified; E66.9 Obesity, unspecified; Z68.34 Body mass index [BMI] 34.0-34.9, adult; W19.XXXA Unspecified fall, initial encounter; Y93.02 Activity, running
CPT/HCPCS: 73502-26-LT; 73502-LT; 73562-26-LT; 73562-LT; 90471; 90715; 99283; 99283-25

== ENCOUNTER 2020-05-30 13:54 | Emergency (ER) | payer MEDICAID ==
[2020-05-30] MEDS ORDERED: Sodium Chloride 0.9% 1,000 ML IV ONE (14:35)
[2020-05-30] MEDS ORDERED: Sodium Chloride 0.9% 10 ML Syringe FLUSH PRN (14:35)
[2020-05-30] MEDS ORDERED: Ketorolac 15 MG/ML SDV IVPUSH ONE (14:35)
[2020-05-30] MEDS ORDERED: Sodium Chloride 0.9% 2.5 ML Syringe FLUSH PRN (14:35)
[2020-05-30] MEDS ORDERED: Ondansetron 4 MG/2 ML SDV IVPUSH ONE (14:35)
[2020-05-30] MEDS ORDERED: Morphine 4 MG/ML Syringe ONE (14:36)
[2020-05-30] MEDS ORDERED: Ketorolac 30 MG/ML SDV ONE (14:36)
[2020-05-30] MEDS ORDERED: Ondansetron 4 MG/2 ML SDV ONE (14:36)
[2020-05-30] MEDS ORDERED: Morphine 4 MG/ML Syringe IVPUSH ONE ×2 (14:41→15:08)
[2020-05-30 15:04] LABS: POTASSIUM,K 3.8 mmol/L (3.5-5.1)
--- NOTE | 2020-05-30 15:08 | EDM.PDOC ---
ED HPI GENERAL MEDICAL PROBLEM - General Chief Complaint: Abdominal Pain Stated Complaint: SIDE PAIN Time Seen by Provider: 05/30/20 14:28 - History of Present Illness INITIAL COMMENTS - FREE TEXT/NARRATIVE: History of present illness: 44-year-old female presenting with left-sided abdominal pain and flank pain. She reports this is somewhat chronic symptom that gets worse when she has a bowel movement. She reports this has been ongoing for 7 years, and no one yet has found why she has abdominal pain. She reports she thinks it is her pancreas as she has had prior pancreatitis in the past. Does not drink alcohol. She rep orts no known cause was found for her pancreatitis. This episode started several hours ago. Review of systems: As per history of present illness and below otherwise all systems reviewed and negative. Past medical history: As per history of present illness and as reviewed below otherwise noncontributory. Surgical history: As per history of present illness and as reviewed below otherwise nonc ontributory. Social history: No reported history of drug or alcohol abuse. Family history: As per history of present illness and as reviewed below otherwise noncontributory. Physical exam: GEN: no acute distress, well appearing HEENT: Atraumatic, normocephalic, mucous membranes moist, Neck: supple, nontender, trachea midline. Lungs: No respiratory distress. Heart: RRR Abdomen: Soft, nondistended, tenderness in the left upper and left lower quadrant. She is concerned about a palpable lump in the left flank area, which on palpation feels to be 1 of the lower rib margins. Back: nontender Extremities: Atraumatic. Neurovascularly intact. Neuro: Awake, alert, oriented. Neuro Exam nonfocal. Skin: warm, dry, no lesions Diagnostics: Labs, CT scan Therapeutics: Pain medications, IV fluids, Zofran MDM: Impression: [] Plan: [] Definitive disposition and diagnosis as appropriate pending reevaluation and review of above. Left Upper Abdomen Pain Score (Numeric/FACES): 10 - Related Data Allergies Allergy/AdvReac Type Severity Reaction Status Date / Time No Known Allergies Allergy Verified 03/15/20 12:24 Home Meds: Home Meds Glycopyrrolate/Formoterol Fum [Bevespi Aerosphere Inhaler] 2 puff INH BID 04/18/19 [History] Mirtazapine [Remeron] 30 mg PO BEDTIME #30 tab 08/28/19 [Rx] Topiramate [Topamax] 25 mg PO BID #60 tab 08/28/19 [Rx] Albuterol [Ventolin HFA] 1 - 2 puff IN Q4H PRN 10/08/19 [History] Cholecalciferol (Vitamin D3) [Vitamin D3] 2 tab PO DAILY 10/08/19 [History] Past Medical History - Past Health History Medical/Surgical History: Denies Medical/Surgical History HEENT History: Reports: Impaired Vision, Other (See Below) Other HEENT History: wears glasses Cardiovascular History: Reports: None Respiratory History: Reports: COPD, Other (See Below) Other Respiratory History: undiagnosed sleep apnea Gastrointestinal History: Reports: Colon Polyp, GERD, Irritable Bowel Syndrome Other Gastrointestinal History: hx gastric ulcer Genitourinary History: Reports: Renal Calculus [employer] History: Reports: None Musculoskeletal History: Reports: None Neurological History: Reports: None Psychiatric History: Reports: Anxiety, Depression Endocrine/Metabolic History: Reports: Obesity/BMI 30+ Hematologic History: Reports: None Immunologic History: Reports: None Oncologic (Cancer) History: Reports: None Dermatologic History: Reports: None - Infectious Disease History Infectious Disease History: Reports: Chicken Pox - Past Surgical History Head Surgeries/Procedures: Reports: None HEENT Surgical History: Reports: None Cardiovascular Surgical History: Reports: None Respiratory Surgical History: Reports: None GI Surgical History: Reports: Cholecystectomy, Colonoscopy Female Surgical History: Reports: Hysterectomy, Lithotripsy/ESWL Endocrine Surgical History: Reports: None Neurological Surgical History: Reports: None Musculoskeletal Surgical History: Reports: None Oncologic Surgical History: Reports: None Dermatological Surgical History: Reports: None Social & Family History - Family History Family Medical History: Noncontributory - Tobacco Use Smoking Status *Q: Current Every Day Smoker Years of Tobacco use: 20 Packs/Tins Daily: 1 - Caffeine Use Caffeine Use: Reports: Soda - Recreational Drug Use Recreational Drug Use: Yes Drug Use in Last 12 Months: Yes Recreational Drug Type: Reports: Marijuana/Hashish Recreational Drug Use Frequency: Daily ED ROS GENERAL - Review of Systems Review Of Systems: See Below (See HPI) ED EXAM, GI/ABD - Physical Exam Exam: See Below (See HPI) Course - Vital Signs Text/Narrative:: Abdominal pain, chronic and waxing/waning for years. Labs unremarkable except for elevated white blood cell count. Lipase not elevated. UA negative and patient with no dysuria. CT abdomen/pelvis without any acute findings and was compared to prior imaging August 2019. Patient is afebrile and well-appearing. No fever or chills. No other findings to account for the elevated white count no signs of severe life-threatening infection seen here today and the patient is feeling much better after IV fluids and pain medication administration. The patient would like to be discharged now. She does have ongoing outpatient follow-up and agrees to continue to follow-up for further evaluation and work-up for her chronic abdominal pain. Last Recorded V/S: Last Vital Signs Temp 96.8 F L 05/30/20 19:05 Pulse 79 05/30/20 19:05 Resp 18 05/30/20 19:05 BP 119/60 05/30/20 19:05 Pulse Ox 98 05/30/20 19:05 - Orders/Labs/Meds Orders: Active Orders 24 hr Category Date Time Status Saline Lock Insert [OM.PC] Stat Oth 05/30/20 14:35 Ordered Labs: Laboratory Tests 05/30/20 05/30/20 05/30/20 Range/Units 14:40 14:40 17:42 WBC 14.81 H (4.0-11.0) K/uL RBC 4.82 (4.30-5.90) M/uL Hgb 15.0 (12.0-16.0) g/dL Hct 45.5 (36.0-46.0) % MCV 94.4 (80.0-98.0) fL MCH 31.1 (27.0-32.0) pg MCHC 33.0 (31.0-37.0) g/dL RDW Std Deviation 47.4 (28.0-62.0) fl RDW Coeff of Negrita 14 (11.0-15.0) % Plt Count 333 (150-400) K/uL MPV 10.10 (7.40-12.00) fL Neut % (Auto) 80.5 H (48.0-80.0) % Lymph % (Auto) 16.2 (16.0-40.0) % Hayes % (Auto) 2.3 (0.0-15.0) % Eos % (Auto) 0.8 (0.0-7.0) % Baso % (Auto) 0.2 (0.0-1.5) % Neut # (Auto) 11.9 H (1.4-5.7) K/uL Lymph # (Auto) 2.4 (0.6-2.4) K/uL Hayes # (Auto) 0.3 (0.0-0.8) K/uL Eos # (Auto) 0.1 (0.0-0.7) K/uL Baso # (Auto) 0.0 (0.0-0.1) K/uL Nucleated RBC % 0.0 /100WBC Nucleated RBCs # 0 K/uL Sodium 142 (136-145) mmol/L Potassium 3.8 (3.5-5.1) mmol/L Chloride 104 (98-107) mmol/L Carbon Dioxide 26.0 (21.0-32.0) mmol/L BUN 12 (7.0-18.0) mg/dL Creatinine 1.1 H (0.6-1.0) mg/dL Est Cr Clr Drug Dosing 46.88 mL/min Estimated GFR (MDRD) 54.0 ml/min Glucose 124 H (74-106) mg/dL Calcium 9.4 (8.5-10.1) mg/dL Total Bilirubin 0.2 (0.2-1.0) mg/dL AST 11 L (15-37) IU/L ALT 18 (14-63) IU/L Alkaline Phosphatase 89 (46-116) U/L Total Protein 7.9 (6.4-8.2) g/dL Albumin 4.4 (3.4-5.0) g/dL Globulin 3.5 (2.6-4.0) g/dL Albumin/Globulin Ratio 1.3 (0.9-1.6) Lipase 120 (73-393) U/L Urine Color YELLOW Urine Appearance CLEAR Urine pH 8.0 (5.0-8.0) Ur Specific [place] 1.010 (1.001-1.035) Urine Protein NEGATIVE (NEGATIVE) mg/dL Urine Glucose (UA) NEGATIVE (NEGATIVE) mg/dL Urine Ketones NEGATIVE (NEGATIVE) mg/dL Urine Occult Blood NEGATIVE (NEGATIVE) Urine Nitrite NEGATIVE (NEGATIVE) Urine Bilirubin NEGATIVE (NEGATIVE) Urine Urobilinogen 0.2 (<2.0) EU/dL Ur Leukocyte Esterase NEGATIVE (NEGATIVE) Meds: Medications Discontinued Medications Generic Name Dose Route Start Last Admin Trade Name Pablo PRN Reason Stop Dose Admin Hydromorphone HCl 1 mg 05/30/20 17:42 05/30/20 17:50 Dilaudid IVPUSH 05/30/20 17:43 1 mg ONETIME ONE Administration Sodium Chloride 1,000 mls @ 999 mls/hr 05/30/20 14:35 05/30/20 14:39 Normal Saline IV 05/30/20 15:35 999 mls/hr .Bolus ONE Administration Iopamidol 75 ml 05/30/20 18:48 Isovue-370 (76%) IVPUSH 05/30/20 18:49 ONETIME STA Iopamidol 100 ml 05/30/20 18:50 05/30/20 18:51 Isovue-370 (76%) IVPUSH 05/30/20 18:51 100 ml ONETIME ONE Administration Ketorolac Tromethamine 30 mg 05/30/20 14:35 05/30/20 14:40 Toradol IVPUSH 05/30/20 14:36 30 mg ONETIME ONE Administration Ketorolac Tromethamine Confirm 05/30/20 14:36 05/30/20 14:40 Toradol Administered 05/30/20 14:37 Not Given Dose 30 mg .ROUTE .STK-MED ONE Morphine Sulfate Confirm 05/30/20 14:36 05/30/20 14:41 Morphine Administered 05/30/20 14:37 Not Given Dose 4 mg .ROUTE .STK-MED ONE Morphine Sulfate 4 mg 05/30/20 14:41 05/30/20 14:41 Morphine IVPUSH 05/30/20 14:42 4 mg ONETIME ONE Administration Morphine Sulfate 4 mg 05/30/20 15:08 05/30/20 15:25 Morphine IVPUSH 05/30/20 15:09 4 mg ONETIME ONE Administration Ondansetron HCl 4 mg 05/30/20 14:35 05/30/20 14:40 Zofran IVPUSH 05/30/20 14:36 4 mg ONETIME ONE Administration Ondansetron HCl Confirm 05/30/20 14:36 05/30/20 14:41 Zofran Administered 07/19/20 14:37 Not Given Dose 4 mg .ROUTE .STK-MED ONE Sodium Chloride 10 ml 05/30/20 14:35 05/30/20 14:41 Saline Flush FLUSH 10 ml ASDIRECTED PRN Administration Keep Vein Open Sodium Chloride 2.5 ml 05/30/20 14:35 05/30/20 14:41 Saline Flush FLUSH 2.5 ml ASDIRECTED PRN Administration Keep Vein Open - Re-Assessments/Exams Free Text/Narrative Re-Assessment/Exam: 05/30/20 18:59 Feeling much better after repeat dose of pain medication. All labs and UA unremarkable except for slightly elevated white blood cell count, however the patient was vomiting. CT scan negative for any acute findings. Patient reports her pain is at a much more tolerable level and she feels that it is tolerable enough for her to like to go home at this time. Departure - Departure Time of Disposition: 18:59 Disposition: Home, Self-Care 01 Clinical Impression: Abdominal pain Qualifiers: Abdominal location: epigastric Qualified Code(s): R10.13 - Epigastric pain - Discharge Information Instructions: Constipation, Adult, [id number], Abdominal Pain, Adult, [id number], Flank Pain, Adult, [id number] Referrals: Ellen Ayala [facility] ATTENDANT [Primary Care Provider] - 2 Days Forms: ED Department Discharge Additional Instructions: The following information is given to patients seen in the emergency department who are being discharged to home. This information is to outline your options for follow-up care. We provide all patients seen in our emergency department with a follow-up referral. The need for follow-up, as well as the timing and circumstances, are variable depending upon the specifics of your emergency department visit. If you don't have a primary care physician on staff, we will provide you with a referral. We always advise you to contact your personal physician following an emergency department visit to inform them of the circumstance of the visit and for follow-up with them and/or the need for any referrals to a consulting specialist. The emergency department will also refer you to a specialist when appropriate. This referral assures that you have the opportunity for follow-up care with a specialist. All of these measure are taken in an effort to provide you with optimal care, which includes your follow-up. Under all circumstances we always encourage you to contact your private physician who remains a resource for coordinating your care. When calling for follow-up care, please make the office aware that this follow-up is from your recent emergency room visit. If for any reason you are refused follow-up, please contact the [facility] Emergency Department at and asked to speak to the emergency department charge nurse. Sepsis Event Note (ED) - Evaluation Sepsis Screening Result: No Definite Risk - My Orders Last 24 Hours: My Active Orders 05/30/20 14:35 Saline Lock Insert [OM.PC] Stat - Assessment/Plan Last 24 Hours: My Active Orders 05/30/20 14:35 Saline Lock Insert [OM.PC] Stat
--- NOTE | 2020-05-30 16:12 | CT ---
CT abdomen and pelvis Technique: Multiple axial sections were obtained from above the dome of the diaphragm inferiorly through the pubic symphysis. Intravenous contrast was utilized. No oral contrast has been given. Comparison: Prior CT abdomen and pelvis study of 08/25/19. Findings: Visualized lung bases show nothing acute. Liver shows no focal abnormality. Spleen shows no abnormality. Surgical clips are seen from prior cholecystectomy. Adrenal glands show no nodule. Pancreas is within normal limits. Kidneys show symmetric contrast enhancement without hydronephrosis or mass. Aorta shows no aneurysm. Atherosclerotic calcification is noted within the aorta and iliac vessels. No retroperitoneal adenopathy or mesenteric abnormalities are seen. No pelvic mass or adenopathy is seen. Small cyst is noted within the left ovary measuring 2.0 cm which is believed to be physiologic. Appendix is seen which is normal in size. Bone window settings were reviewed which shows no acute osseous finding. Impression: 1. Nothing acute is appreciated on CT study of the abdomen and pelvis. No appreciable change from previous study is seen. Diagnostic code #2 This report was dictated in MDT
[2020-05-30] MEDS ORDERED: HYDROmorphone 1 MG/ML Syringe IVPUSH ONE (17:42)
[2020-05-30] MEDS ORDERED: Iopamidol 755 Mg/ML 100 ML Bottle IVPUSH STA (18:48)
[2020-05-30] MEDS ORDERED: Iopamidol 755 Mg/ML 100 ML Bottle IVPUSH ONE (18:50)
== END 2020-05-30 19:05 | disposition home or self-care (01) ==
LOC: MW.ED 13:54
DX: R10.13 Epigastric pain (principal); F17.210 Nicotine dependence, cigarettes, uncomplicated; J44.9 Chronic obstructive pulmonary disease, unspecified; E66.9 Obesity, unspecified; Z68.32 Body mass index [BMI] 32.0-32.9, adult; Z79.899 Other long term (current) drug therapy
CPT/HCPCS: 36415; 74177; 74177-26; 80053; 81003; 83690; 85025; 96374; 96375; 96376; 99284; 99284-25; J1170; J1885; J2270; J2405; J7030; Q9967

== ENCOUNTER 2021-05-29 17:42 | Emergency (ER) | payer MEDICAID ==
[2021-05-29] MEDS ORDERED: Ketorolac 60 MG/2 ML SDV IM ONE (19:45)
[2021-05-29] MEDS ORDERED: traMADol 50 MG Tab PO ONE (19:45)
--- NOTE | 2021-05-29 20:17 | CR ---
HISTORY: Puncture wound. TECHNIQUE: Two views of the right foot. COMPARISON: No prior. FINDINGS: No radiopaque foreign body. No acute fracture. There is hallux valgus. Plantar calcaneal spur. No joint space narrowing. No soft tissue gas. IMPRESSION: No radiopaque foreign body or acute fracture. Dictated by Jori Marinelli MD @ 05/29/2021 8:15:[address] Jori Marinelli @ May 29 2021 8:15PM
[2021-05-29] MEDS ORDERED: Cephalexin 500 MG Cap PO ONE (20:18)
--- NOTE | 2021-05-29 20:19 | EDM.PDOC ---
ED HPI GENERAL MEDICAL PROBLEM - General Chief Complaint: Laceration Stated Complaint: STICK PUNCTURED FOOT Time Seen by Provider: 05/29/21 19:40 Source of Information: Reports: Patient History Limitations: Reports: No Limitations - History of Present Illness INITIAL COMMENTS - FREE TEXT/NARRATIVE: HISTORY AND PHYSICAL: History of present illness: Patient is a 45-year-old female who presents emergency room today with concern of possible left lower extremity infection. Patient states that she was walking through the sand and she was dragging her feet when a stick stuck in her foot yesterday. Patient states she pulled out the stick and states that it was about a centimeter in her foot. Patient states that she believes she got the entire stick out. Patient states that she went to work today and has been on her feet all day and did not have much discomfort of her foot until she got home and took her shoes off and kicked her feet up. Patient states she started noticing some swelling around the area where the stick was and was concerned of infection. Patient states that she is up-to-date on her tetanus and had this for years ago. Patient denies any other symptoms or concerns. Patient denies fever, chills, chest pain, shortness of breath, or cough. Denies headache, neck stiff ness, change in vision, syncope, or near syncope. Denies nausea, vomiting, abdominal pain, diarrhea, constipation, or dysuria. Has not noted any blood in urine or stool. Patient has been eating and drinking appropriately. Review of systems: As per history of present illness and below otherwise all systems reviewed and negative. Past medical history: As per history of present illness and as reviewed below otherwise noncontributory. Surgical history: As per history of present illness and as reviewed below otherwise noncontributory. Social history: See social history for further information Family history: As per history of present illness and as reviewed below otherwise noncontributory. Physical exam: General: Patient is alert, oriented, and in no acute distress. Patient sitting comfortably on exam table. Vitals stable and reviewed by me. HEENT: Atraumatic, normocephalic, pupils equal and reactive bilaterally, negative for conjunctival pallor or scleral icterus, mucous membranes moist, TMs normal bilaterally, throat clear, neck supple, nontender, trachea midline. No drooling or trismus noted. No meningeal signs. No hot potato voice noted. Lungs: Clear to auscultation, breath sounds equal bilaterally, chest nontender. Heart: S1S2, regular rate and rhythm without overt murmur Abdomen: Soft, nondistended, nontender. Negative for masses or hepatosplenomegaly. Negative for costovertebral tenderness. Pelvis: Stable nontender. Genitourinary: Deferred. Rectal: Deferred. Skin: Intact, warm, dry. No lesions or rashes noted. Extremities: There is a small abrasion noted just inferior underlying the second digit of the left lower extremity without laceration. No obvious foreign bodies noted. There is some mild edema and erythema surrounding the abrasion consistent with possible early cellulitis. Patient has full range of motion of the complete left lower extremity without deficit. Dorsalis pedis and posterior tibial pulses are grossly intact to left lower extremity with capillary refill less than 2 seconds. Otherwise, atraumatic, negative for cords or calf pain. Neurovascular unremarkable. Neuro: Awake, alert, oriented. Cranial nerves II through XII unremarkable. Cerebellum unremarkable. Motor and sensory unremarkable throughout. Exam nonf ocal. Notes: Patient is a 45-year-old female who presents emergency room today with concern of left foot injury and possible infection that occurred yesterday and worsened today after being on her feet all day. Upon arrival to the ED, patient is tearful on exam stating that her left foot hurts but is otherwise well-appearing on exam, nontoxic, and vitally stable. Patient does have a small abrasion under the second digit of her left lower extremity but I do not see any foreign body and this is not a laceration that can be opened up to assess. There is some mild edema and erythema surrounding the abrasion consistent with possible early cellulitis. Will obtain x-ray imaging and provide patient with therapeutics for her pain and discomfort. Foot x-ray shows no acute findings and no foreign bodies. We will place patient on antibiotics for possible early cellulitis. Strict return precautions thoroughly discussed with patient. Discussed importance for follow-up with primary care provider. Upon reevaluation of patient, she has great improvement of her pain and discomfort today in the ED and is no longer crying and states that she feels much more comfortable. Voices understanding and is agreeable to plan of care. Denies any further questions or concerns at this time. Diagnostics: Foot x-ray Therapeutics: Keflex (first dose of Keflex was given today in the emergency room as pharmacies are closed at this time) Toradol, tramadol Prescription: Keflex Impression: Left lower extremity cellulitis Left lower extremity injury Plan: 1. Rest, ice, elevate the affected extremity. You can apply ice 15 minutes on, 15 minutes off. 2. Tylenol and/or Ibuprofen as directed for pain management or discomfort. 3. Follow up with the primary care provider as discussed. Return to the ED as needed and as discussed Definitive disposition and diagnosis as appropriate pending reevaluation and review of above. - Related Data Allergies Allergy/AdvReac Type Severity Reaction Status Date / Time No Known Allergies Allergy Verified 05/29/21 18:46 Home Meds: Home Meds Glycopyrrolate/Formoterol Fum [Bevespi Aerosphere Inhaler] 2 puff INH BID 04/18/19 [History] Mirtazapine [Remeron] 30 mg PO BEDTIME #30 tab 08/28/19 [Rx] Topiramate [Topamax] 25 mg PO BID #60 tab 08/28/19 [Rx] Albuterol [Ventolin HFA] 1 - 2 puff IN Q4H PRN 10/08/19 [History] Cholecalciferol (Vitamin D3) [Vitamin D3] 2 tab PO DAILY 10/08/19 [History] cephALEXin [Keflex] 500 mg PO Q8H 10 Days #30 cap 05/29/21 [Rx] Past Medical History - Past Health History Medical/Surgical History: Denies Medical/Surgical History HEENT History: Reports: Impaired Vision, Other (See Below) Other HEENT History: wears glasses Cardiovascular History: Reports: None Respiratory History: Reports: COPD, Other (See Below) Other Respiratory History: undiagnosed sleep apnea Gastrointestinal History: Reports: Colon Polyp, GERD, Irritable Bowel Syndrome Other Gastrointestinal History: hx gastric ulcer Genitourinary History: Reports: Renal Calculus [employer]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 Musculoskeletal History: Reports: None Neurological History: Reports: None Psychiatric History: Reports: Anxiety, Depression Endocrine/Metabolic History: Reports: Obesity/BMI 30+ Hematologic History: Reports: None Immunologic History: Reports: None Oncologic (Cancer) History: Reports: None Dermatologic History: Reports: None - Infectious Disease History Infectious Disease History: Reports: Chicken Pox - Past Surgical History Head Surgeries/Procedures: Reports: None HEENT Surgical History: Reports: None Cardiovascular Surgical History: Reports: None Respiratory Surgical History: Reports: None GI Surgical History: Reports: Cholecystectomy, Colonoscopy Female Surgical History: Reports: Hysterectomy, Lithotripsy/ESWL Endocrine Surgical History: Reports: None Neurological Surgical History: Reports: None Musculoskeletal Surgical History: Reports: None Oncologic Surgical History: Reports: None Dermatological Surgical History: Reports: None Social & Family History - Family History Family Medical History: No Pertinent Family History - Caffeine Use Caffeine Use: Reports: Soda ED ROS GENERAL - Review of Systems Review Of Systems: Comprehensive ROS is negative, except as noted in HPI. ED EXAM, SKIN/RASH Exam: See Below (See dictation) Course - Vital Signs Last Recorded V/S: Last Vital Signs Temp 98.8 F 05/29/21 18:40 Pulse 62 05/29/21 20:33 Resp 18 05/29/21 18:40 BP 128/77 05/29/21 20:33 Pulse Ox 98 05/29/21 20:33 - Orders/Labs/Meds Meds: Medications Discontinued Medications Generic Name Dose Route Start Last Admin Trade Name Pablo PRN Reason Stop Dose Admin Cephalexin 500 mg 05/29/21 20:18 05/29/21 20:28 Cephalexin 500 Mg Cap PO 05/29/21 20:19 500 mg ONETIME ONE Administration Ketorolac Tromethamine 60 mg 05/29/21 19:45 05/29/21 19:51 Ketorolac 60 Mg/2 Ml Sdv IM 05/29/21 19:46 60 mg ONETIME ONE Administration Tramadol HCl 50 mg 05/29/21 19:45 05/29/21 19:50 Tramadol 50 Mg Tab PO 05/29/21 19:46 50 mg ONETIME ONE Administration Departure - Departure Time of Disposition: 20:18 Disposition: Home, Self-Care 01 Clinical Impression: Cellulitis Qualifiers: Site of cellulitis: extremity Site of cellulitis of extremity: lower extremity Laterality: left Qualified Code(s): L03.116 - Cellulitis of left lower limb Foot injury Qualifiers: Encounter type: initial encounter Laterality: left Qualified Code(s): S99.922A - Unspecified injury of left foot, initial encounter - Discharge Information Prescriptions: cephALEXin [Keflex] 500 mg PO Q8H 10 Days #30 cap Instructions: Cellulitis, Adult, [id number] Referrals: PCP,None [Primary Care Provider] - Forms: ED Department Discharge Additional Instructions: The following information is given to patients seen in the emergency department who are being discharged to home. This information is to outline your options for follow-up care. We provide all patients seen in our emergency department with a follow-up referral. The need for follow-up, as well as the timing and circumstances, are variable depending upon the specifics of your emergency department visit. If you don't have a primary care physician on staff, we will provide you with a referral. We always advise you to contact your personal physician following an emergency department visit to inform them of the circumstance of the visit and for follow-up with them and/or the need for any referrals to a consulting specialist. The emergency department will also refer you to a specialist when appropriate. This referral assures that you have the opportunity for follow-up care with a specialist. All of these measure are taken in an effort to provide you with optimal care, which includes your follow-up. Under all circumstances we always encourage you to contact your private physician who remains a resource for coordinating your care. When calling for follow-up care, please make the office aware that this follow-up is from your recent emergency room visit. If for any reason you are refused follow-up, please contact the [facility] Emergency Department at and asked to speak to the emergency department charge nurse. [facility] [address] [place] [address] [place] [address] 1. Rest, ice, elevate the affected extremity. You can apply ice 15 minutes on, 15 minutes off. 2. Tylenol and/or Ibuprofen as directed for pain management or discomfort. 3. Follow up with the primary care provider as discussed. Return to the ED as needed and as discussed. Sepsis Event Note (ED) - Evaluation Sepsis Screening Result: No Definite Risk - Focused Exam Vital Signs: Vital Signs Temp Pulse Resp BP Pulse Ox 05/29/21 20:33 62 128/77 98 05/29/21 18:40 98.8 F 77 18 123/72 96
== END 2021-05-29 20:35 | disposition home or self-care (01) ==
LOC: MW.ED 17:42
DX: S99.922A Unspecified injury of left foot, initial encounter (principal); L03.116 Cellulitis of left lower limb; J44.9 Chronic obstructive pulmonary disease, unspecified; E66.9 Obesity, unspecified; Z68.32 Body mass index [BMI] 32.0-32.9, adult; W22.8XXA Striking against or struck by other objects, initial encounter; Y93.01 Activity, walking, marching and hiking
CPT/HCPCS: 73620; 96372; 99283; A9270; J1885

== ENCOUNTER 2021-09-01 19:17 | Emergency (ER) | payer MEDICAID ==
[2021-09-01] MEDS ORDERED: Bacitracin Oint 1 GM U/D Packet TOP ONE (20:36)
--- NOTE | 2021-09-01 20:39 | EDM.PDOC ---
ED HPI GENERAL MEDICAL PROBLEM - General Chief Complaint: Skin Complaint Stated Complaint: BURNT LFT HAND WITH HOT OIL 415* Time Seen by Provider: 09/01/21 20:21 Source of Information: Reports: Patient History Limitations: Reports: No Limitations - History of Present Illness INITIAL COMMENTS - FREE TEXT/NARRATIVE: HISTORY AND PHYSICAL: History of present illness: Patient is a 46-year-old female who presents emergency room today with concern of a burn of her left wrist that occurred at about 430 this afternoon. Patient states that she was making chicken patties in the stove and had the chicken patties and grease. Patient states that the caceres/around and some of the grease splashed her left wrist and she had a blister to the area that she did put a small rola and in order to drain it. Patient states that she is up-to-date on tetanus within 5 years. Patient denies any other symptoms or concerns. Patient denies fever, chills, chest pain, shortness of breath, or cough. Denies headache, neck stiff ness, change in vision, syncope, or near syncope. Denies nausea, vomiting, abdominal pain, diarrhea, constipation, or dysuria. Has not noted any blood in urine or stool. Patient has been eating and drinking appropriately. Review of systems: As per history of present illness and below otherwise all systems reviewed and negative. Past medical history: As per history of present illness and as reviewed below otherwise noncontributory. Surgical history: As per history of present illness and as reviewed below otherwise noncontributory. Social history: See social history for further information Family history: As per history of present illness and as reviewed below otherwise noncontributory. Physical exam: General: Patient is alert, oriented, and in no acute distress. Patient sitting comfortably on exam table. Vitals stable and reviewed by me. HEENT: Atraumatic, normocephalic, pupils equal and reactive bilaterally, negative for conjunctival pallor or scleral icterus, neck supple, nontender, trachea midline. No drooling or trismus noted. No meningeal signs. No hot potato voice noted. Lungs: Clear to auscultation, breath sounds equal bilaterally, chest nontender. Heart: S1S2, regular rate and rhythm without overt murmur Abdomen: Soft, nondistended, nontender. Negative for masses or hepatosplenomegaly. Negative for costovertebral tenderness. Pelvis: Stable nontender. Genitourinary: Deferred. Rectal: Deferred. Skin: Intact, warm, dry. No lesions or rashes noted. Extremities: There is a partial-thickness burn of the left wrist with a blister of the left wrist that has already been drained, this does extend partially up into the palmar aspect of the left hand but does not involve any digits and is noncircumferential. Patient does have full range of motion of the complete left upper extremity without deficit. Radial pulses grossly intact with capillary refill less than 2 seconds. Otherwise, atraumatic, negative for cords or calf pain. Neurovascular unremarkable. Neuro: Awake, alert, oriented. Cranial nerves II through XII unremarkable. Cerebellum unremarkable. Motor and sensory unremarkable throughout. Exam nonfocal. Notes: Signs and symptoms that were prompt return to the ED thoroughly discussed with patient. Discussed importance for follow-up with a primary care provider. Voices understanding and is agreeable to plan of care. Denies any further questions or concerns at this time. Diagnostics: None Therapeutics: Bacitracin sterile dressing placed by nursing staff Prescription: None Impression: Partial-thickness burn of left wrist Plan: 1. When cleaning the burn, use mild soap and water. You can consider topical [id number] antibacterial such as bacitracin for the next 1 to 2 days as discussed. 2. If you are going to be active and using the affected hand, make sure to cover with sterile dressing as discussed. 3. You can alternate ibuprofen and Tylenol as directed for pain and discomfort. 4. Follow-up with a primary care provider as discussed. Return to the ED as needed and as discussed. Definitive disposition and diagnosis as appropriate pending reevaluation and review of above. Left Wrist Pain Score (Numeric/FACES): 10 - Related Data Allergies Allergy/AdvReac Type Severity Reaction Status Date / Time No Known Allergies Allergy Verified 09/01/21 20:21 Home Meds: Home Meds Glycopyrrolate/Formoterol Fum [Bevespi Aerosphere Inhaler] 2 puff INH BID 04/18/19 [History] Mirtazapine [Remeron] 30 mg PO BEDTIME #30 tab 08/28/19 [Rx] Topiramate [Topamax] 25 mg PO BID #60 tab 08/28/19 [Rx] Albuterol [Ventolin HFA] 1 - 2 puff IN Q4H PRN 10/08/19 [History] Cholecalciferol (Vitamin D3) [Vitamin D3] 2 tab PO DAILY 10/08/19 [History] cephALEXin [Keflex] 500 mg PO Q8H 10 Days #30 cap 05/29/21 [Rx] Past Medical History - Past Health History Medical/Surgical History: Denies Medical/Surgical History HEENT History: Reports: Impaired Vision, Other (See Below) Other HEENT History: wears glasses Cardiovascular History: Reports: None Respiratory History: Reports: COPD, Other (See Below) Other Respiratory History: undiagnosed sleep apnea Gastrointestinal History: Reports: Colon Polyp, GERD, Irritable Bowel Syndrome Other Gastrointestinal History: hx gastric ulcer Genitourinary History: Reports: Renal 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 Musculoskeletal History: Reports: None Neurological History: Reports: None Psychiatric History: Reports: Anxiety, Depression Endocrine/Metabolic History: Reports: Obesity/BMI 30+ Hematologic History: Reports: None Immunologic History: Reports: None Oncologic (Cancer) History: Reports: None Dermatologic History: Reports: None - Infectious Disease History Infectious Disease History: Reports: Chicken Pox - Past Surgical History Head Surgeries/Procedures: Reports: None HEENT Surgical History: Reports: None Cardiovascular Surgical History: Reports: None Respiratory Surgical History: Reports: None GI Surgical History: Reports: Cholecystectomy, Colonoscopy Female Surgical History: Reports: Hysterectomy, Lithotripsy/ESWL Endocrine Surgical History: Reports: None Neurological Surgical History: Reports: None Musculoskeletal Surgical History: Reports: None Oncologic Surgical History: Reports: None Dermatological Surgical History: Reports: None Social & Family History - Family History Family Medical History: No Pertinent Family History - Tobacco Use Tobacco Use Status *Q: Current Every Day Tobacco User Years of Tobacco use: 30 Packs/Tins Daily: 0.5 - Caffeine Use Caffeine Use: Reports: Coffee - Recreational Drug Use Recreational Drug Use: Yes Recreational Drug Type: Reports: Marijuana/Hashish ED ROS GENERAL - Review of Systems Review Of Systems: Comprehensive ROS is negative, except as noted in HPI. ED EXAM, SKIN/RASH Exam: See Below (see dictation) Course - Vital Signs Last Recorded V/S: Last Vital Signs Temp 98.4 F 09/01/21 20:22 Pulse 85 09/01/21 20:22 Resp 17 09/01/21 20:22 BP 125/78 10/21/21 20:22 Pulse Ox 99 09/01/21 20:22 - Orders/Labs/Meds Orders: Active Orders 24 hr Category Date Time Status Communication Order [RC] STAT Care 09/01/21 20:37 Ordered Meds: Medications Discontinued Medications Generic Name Dose Route Start Last Admin Trade Name Pablo PRN Reason Stop Dose Admin Bacitracin 1 dose 09/01/21 20:36 Bacitracin Oint 1 Gm U/D Packet TOP 09/01/21 20:37 ONETIME ONE Departure - Departure Time of Disposition: 20:37 Disposition: Home, Self-Care 01 Clinical Impression: Partial thickness burn of left wrist Qualifiers: Encounter type: initial encounter Qualified Code(s): T23.272A - Burn of second degree of left wrist, initial encounter - Discharge Information Referrals: Ellen Ayala AGRICULTURAL TECHNICIAN [Primary Care Provider] - Forms: ED Department Discharge Additional Instructions: The following information is given to patients seen in the emergency department who are being discharged to home. This information is to outline your options for follow-up care. We provide all patients seen in our emergency department with a follow-up referral. The need for follow-up, as well as the timing and circumstances, are variable depending upon the specifics of your emergency department visit. If you don't have a primary care physician on staff, we will provide you with a referral. We always advise you to contact your personal physician following an emergency department visit to inform them of the circumstance of the visit and for follow-up with them and/or the need for any referrals to a consulting specialist. The emergency department will also refer you to a specialist when appropriate. This referral assures that you have the opportunity for follow-up care with a specialist. All of these measure are taken in an effort to provide you with optimal care, which includes your follow-up. Under all circumstances we always encourage you to contact your private physician who remains a resource for coordinating your care. When calling for follow-up care, please make the office aware that this follow-up is from your recent emergency room visit. If for any reason you are refused follow-up, please contact the [facility] Emergency Department at and asked to speak to the emergency department charge nurse. [facility] [address] [place] [address] [facility] [address] [place] [id number] 1. When cleaning the burn, use mild soap and water. You can consider topical zllz-eww-laoaety antibacterial such as bacitracin for the next 1 to 2 days as discussed. 2. If you are going to be active and using the affected hand, make sure to cover with sterile dressing as discussed. 3. You can alternate ibuprofen and Tylenol as directed for pain and discomfort. 4. Follow-up with a primary care provider as discussed. Return to the ED as needed and as discussed. Sepsis Event Note (ED) - Evaluation Sepsis Screening Result: No Definite Risk - Focused Exam Vital Signs: Vital Signs Temp Pulse Resp BP Pulse Ox 09/01/21 20:22 98.4 F 85 17 125/78 99 - My Orders Last 24 Hours: My Active Orders 09/01/21 20:37 Communication Order [RC] STAT - Assessment/Plan Last 24 Hours: My Active Orders 09/01/21 20:37 Communication Order [RC] STAT
[2021-09-01] MEDS ORDERED: Ketorolac 60 MG/2 ML SDV IM ONE (21:05)
== END 2021-09-01 21:14 | disposition home or self-care (01) ==
LOC: MW.ED 19:17
DX: T23.272A Burn of second degree of left wrist, initial encounter (principal); J44.9 Chronic obstructive pulmonary disease, unspecified; E66.9 Obesity, unspecified; Z68.32 Body mass index [BMI] 32.0-32.9, adult; Z72.0 Tobacco use; X15.0XXA Contact with hot stove (kitchen), initial encounter; Y93.G3 Activity, cooking and baking
CPT/HCPCS: 16020; 96372; 99283; J1885

== ENCOUNTER 2022-03-15 20:25 | Emergency (ER) | payer MEDICAID ==
[2022-03-15] MEDS ORDERED: Amoxicillin/Clavulanate K 875-125 MG Tab PO ONE (20:32)
[2022-03-15] MEDS ORDERED: Ondansetron 4 MG Tab.DIS PO ONE (20:33)
[2022-03-15] MEDS ORDERED: Bacitracin Oint 1 GM U/D Packet TOP ONE (20:34)
== END 2022-03-15 21:15 | disposition home or self-care (01) ==
LOC: MW.ED 20:25
DX: S51.851A Open bite of right forearm, initial encounter (principal); F41.9 Anxiety disorder, unspecified; J44.9 Chronic obstructive pulmonary disease, unspecified; E66.9 Obesity, unspecified; Z68.33 Body mass index [BMI] 33.0-33.9, adult; W55.01XA Bitten by cat, initial encounter
CPT/HCPCS: 99283; A9270

== ENCOUNTER 2023-01-16 20:58 | Emergency (ER) | payer MEDICAID ==
[2023-01-16] MEDS ORDERED: Lidocaine 2% Viscous Solution 15 ML UD PO ONE (21:16)
[2023-01-16] MEDS ORDERED: Benzocaine 20% Topical Spray UD MUCMEM ONE (21:16)
[2023-01-16] MEDS ORDERED: Amoxicillin/Clavulanate K 875-125 MG Tab PO ONE (21:45)
[2023-01-16] MEDS ORDERED: Acetaminophen/HYDROcodone 325-5 MG Tab PO ONE (21:45)
== END 2023-01-16 22:11 | disposition home or self-care (01) ==
LOC: MW.ED 20:58
DX: K04.7 Periapical abscess without sinus (principal); K02.9 Dental caries, unspecified; J44.9 Chronic obstructive pulmonary disease, unspecified; E66.9 Obesity, unspecified; Z68.33 Body mass index [BMI] 33.0-33.9, adult; Z79.899 Other long term (current) drug therapy
CPT/HCPCS: 99282; 99283; A9270-GY

== ENCOUNTER 2023-05-22 09:10 | Emergency (ER) | payer OTHER, MEDICAID, BC ==
[2023-05-22] MEDS ORDERED: Sodium Chloride 0.9% 2.5 ML Syringe FLUSH PRN (09:21)
[2023-05-22] MEDS ORDERED: Sodium Chloride 0.9% 10 ML Syringe FLUSH PRN (09:21)
[2023-05-22] MEDS ORDERED: Morphine 4 MG/ML Syringe IVPUSH PRN (09:22)
[2023-05-22] MEDS ORDERED: Sodium Chloride 0.9% 500 ML IV SCH (09:30)
[2023-05-22] MEDS ORDERED: Iopamidol 755 MG/ML 500 ML Multipack Bottle IVPUSH ONE (10:04)
[2023-05-22] MEDS ORDERED: Ibuprofen 800 MG Tab PO ONE (10:49)
[2023-05-22 10:55] LABS: INR 1.02 (0.86-1.11)
[2023-05-22 11:04] LABS: A/G RATIO 1.2 (0.9-1.6); ALBUMIN 3.5 g/dL (3.4-5.0); BILIRUBIN TOTAL 0.2 mg/dL (0.2-1.0); CALCIUM 8.3 mg/dL (8.5-10.1); CARBON DIOXIDE,CO2 22.9 mmol/L (21.0-32.0); EST CRCL DRUG DOSING (CG) 52.48 mL/min; PROTEIN TOTAL,TP 6.4 g/dL (6.4-8.2)
[2023-05-22 11:07] LABS: BASOPHILS PERCENT AUTO 0.2 % (0.0-1.5); EOSINOPHILS ABSOLUTE AUTO 0.3 K/uL (0.0-0.7); EOSINOPHILS PERCENT AUTO 2.5 % (0.0-7.0); HEMATOCRIT 41.9 % (36.0-46.0); LYMPHOCYTES ABSOLUTE AUTO 2.1 K/uL (0.6-2.4); LYMPHOCYTES PERCENT AUTO 20.1 % (16.0-40.0); MEAN CORPUSCULAR HEMOGLOBIN 32.6 pg (27.0-32.0); MEAN CORPUSCULAR HGB CONC 33.4 g/dL (31.0-37.0); MEAN CORPUSCULAR VOLUME 97.7 fL (80.0-98.0); MONOCYTES ABSOLUTE AUTO 0.5 K/uL (0.0-0.8); MONOCYTES PERCENT AUTO 4.9 % (0.0-15.0); NEUTROPHILS ABSOLUTE AUTO 7.4 K/uL (1.4-5.7); NEUTROPHILS PERCENT AUTO 72.3 % (48.0-80.0); RED BLOOD CELL COUNT 4.29 M/uL (4.30-5.90); WHITE BLOOD CELL COUNT,WBC 10.23 K/uL (4.0-11.0)
[2023-05-22 11:09] LABS: PLATELET COUNT,PLT 206 K/uL (150-400)
== END 2023-05-22 11:15 | disposition home or self-care (01) ==
LOC: MW.ED 09:10
DX: S80.01XA Contusion of right knee, initial encounter (principal); S50.11XA Contusion of right forearm, initial encounter; E66.9 Obesity, unspecified; J44.9 Chronic obstructive pulmonary disease, unspecified; Z79.51 Long term (current) use of inhaled steroids; Z68.33 Body mass index [BMI] 33.0-33.9, adult; V43.53XA Car driver injured in collision with pick-up truck in traffic accident, initial encounter; Y92.410 Unspecified street and highway as the place of occurrence of the external cause
CPT/HCPCS: 36415; 70450; 71260; 72125; 73030; 73060; 73070; 73090; 73100; 73562; 74177; 80053; 84703; 85025; 85610; 93005; 96374; 99285; A9270; J2270; J3490; J7040; Q9967; 93010; 99284

== ENCOUNTER 2023-09-02 06:03 | Emergency (ER) | payer BC, MEDICAID ==
[2023-09-02] MEDS ORDERED: Albuterol/Ipratropium 3.0-0.5 MG/3 ML Neb Soln NEB ONE (06:28)
[2023-09-02 06:48] LABS: CORONAVIRUS COVID-19 NAA NEGATIVE (NEGATIVE); INFLUENZA A NAA NEGATIVE (NEGATIVE); INFLUENZA B NAA NEGATIVE (NEGATIVE)
== END 2023-09-02 07:09 | disposition home or self-care (01) ==
LOC: MW.ED 06:03
DX: J40 Bronchitis, not specified as acute or chronic (principal); E66.9 Obesity, unspecified; Z68.33 Body mass index [BMI] 33.0-33.9, adult; Z72.0 Tobacco use; Z20.822 Contact with and (suspected) exposure to COVID-19
CPT/HCPCS: 0240U; 71045; 99285; 99283; J7620-GY

== ENCOUNTER 2024-05-07 08:22 | Emergency (ER) | payer SELFPAY ==
[2024-05-07] MEDS ORDERED: Sodium Chloride 0.9% 10 ML Syringe FLUSH PRN (09:00)
[2024-05-07] MEDS ORDERED: Sodium Chloride 0.9% 2.5 ML Syringe FLUSH PRN (09:00)
[2024-05-07] MEDS ORDERED: Naloxone 0.4 MG/ML SDV IVPUSH PRN (09:03)
[2024-05-07 09:06] LABS: BASOPHILS ABSOLUTE AUTO 0.05 K/uL (0.00-0.20); BASOPHILS PERCENT AUTO 0.4 % (0.0-1.0); EOSINOPHILS ABSOLUTE AUTO 0.34 K/uL (0.00-0.45); EOSINOPHILS PERCENT AUTO 2.9 % (0.0-6.0); HEMATOCRIT 42.3 % (37.0-47.0); IMMATURE GRAN ABSOLUTE AUTO 0.05 K/uL (0.00-0.05); IMMATURE GRAN PERCENT AUTO 0.4 % (0.0-0.4); LYMPHOCYTES ABSOLUTE AUTO 3.15 K/uL (1.00-4.80); LYMPHOCYTES PERCENT AUTO 27.1 % (24.0-44.0); MEAN CORPUSCULAR HEMOGLOBIN 31.3 pg (28.0-32.0); MEAN CORPUSCULAR HGB CONC 33.1 g/dL (32.0-36.0); MEAN CORPUSCULAR VOLUME 94.6 fL (83.0-99.0); MEAN PLATELET VOLUME 10.4 fL (9.4-12.3); MONOCYTES ABSOLUTE AUTO 0.47 K/uL (0.00-0.80); NEUTROPHILS ABSOLUTE AUTO 7.56 K/uL (1.80-7.70); NEUTROPHILS PERCENT AUTO 65.2 % (41.0-71.0); PLATELET COUNT,PLT 312 K/uL (150-400); RED BLOOD CELL COUNT 4.47 M/uL (4.10-5.30); WHITE BLOOD CELL COUNT,WBC 11.62 K/uL (3.9-11.3)
[2024-05-07] MEDS: Sodium Chloride 0.9% 1,000 ML IV ONE (09:14)
[2024-05-07] MEDS: Ketorolac 30 MG/ML SDV IVPUSH ONE (09:14)
[2024-05-07] MEDS: Ondansetron 4 MG/2 ML SDV IVPUSH ONE (09:14)
[2024-05-07] MEDS: Morphine 4 MG/ML Syringe IVPUSH ONE ×2 (09:14→11:12)
[2024-05-07 09:20] LABS: ALANINE AMINOTRANSFERASE,ALT 21 IU/L (14-63); ALBUMIN 3.5 g/dL (3.4-5.0); ALKALINE PHOSPHATASE 78 U/L (46-116); ASPARTATE AMNIOTRANSFERASE,AST 13 IU/L (15-37); BILIRUBIN TOTAL 0.4 mg/dL (0.2-1.0); BLOOD UREA NITROGEN,BUN 11 mg/dL (7.0-18.0); CALCIUM 8.4 mg/dL (8.5-10.1); CARBON DIOXIDE,CO2 25.6 mmol/L (21.0-32.0); CHLORIDE,CL 107 mmol/L (98-107); CREATININE 1.2 mg/dL (0.6-1.0); EST CRCL DRUG DOSING (CG) 41.18 mL/min; GLUCOSE RANDOM 112 mg/dL (74-106); LIPASE 54 U/L (16-77); POTASSIUM,K 3.9 mmol/L (3.5-5.1); PROTEIN TOTAL,TP 6.9 g/dL (6.4-8.2); SODIUM,NA 142 mmol/L (136-145)
[2024-05-07 09:34] LABS: ESTIMATED GFR 56 mL/min (>60)
[2024-05-07] MEDS: Lidocaine 4% 1 each Patch TOP PRN (11:12)
[2024-05-07] MEDS: Iopamidol 755 MG/ML 500 ML Multipack Bottle IVPUSH STA (11:47)
[2024-05-07] MEDS ORDERED: Acetaminophen/HYDROcodone 325-5 MG Tab PO ONE (14:04)
== END 2024-05-07 14:23 | disposition home or self-care (01) ==
LOC: MW.ED 08:22
DX: R07.89 Other chest pain (principal); R10.9 Unspecified abdominal pain; J44.9 Chronic obstructive pulmonary disease, unspecified; K21.9 Gastro-esophageal reflux disease without esophagitis; E66.9 Obesity, unspecified; Z90.49 Acquired absence of other specified parts of digestive tract; Z90.710 Acquired absence of both cervix and uterus; Z79.899 Other long term (current) drug therapy; Z75.8 Other problems related to medical facilities and other health care; Z68.36 Body mass index [BMI] 36.0-36.9, adult
CPT/HCPCS: 36415; 71101; 71275; 74176; 80053; 83690; 84484; 85025; 93005; 96361; 96374; 96375; 96376; 99285; A9270; J1885; J2270; J2405; J7030; Q9967; 93010; 99284

== ENCOUNTER 2024-05-18 12:23 | Emergency (ER) | payer OTHER ==
[2024-05-18] MEDS: Lidocaine 2% 5 ML SDV INJECT ONE (12:53)
[2024-05-18] MEDS: Octyl 2-Cyanoacrylate 1 g/1 mL 1 APPLIC PEN TOP ONE (14:02)
== END 2024-05-18 14:47 | disposition home or self-care (01) ==
LOC: MW.ED 12:23
DX: S61.214A Laceration without foreign body of right ring finger without damage to nail, initial encounter (principal); S61.212A Laceration without foreign body of right middle finger without damage to nail, initial encounter; J44.9 Chronic obstructive pulmonary disease, unspecified; K21.9 Gastro-esophageal reflux disease without esophagitis; F17.210 Nicotine dependence, cigarettes, uncomplicated; Z75.8 Other problems related to medical facilities and other health care; Z79.51 Long term (current) use of inhaled steroids; Z79.899 Other long term (current) drug therapy; Z90.49 Acquired absence of other specified parts of digestive tract; Z90.710 Acquired absence of both cervix and uterus; W26.8XXA Contact with other sharp object(s), not elsewhere classified, initial encounter; Y93.89 Activity, other specified; Y99.0 Civilian activity done for income or pay
CPT/HCPCS: 12001; 73140; 99283; A9270; J3490

== ENCOUNTER 2025-08-10 14:45 | Emergency (ER) | payer SELFPAY ==
[2025-08-10] MEDS: Orphenadrine 60 MG/2 ML Inj IM ONE (15:25)
[2025-08-10] MEDS: Acetaminophen/HYDROcodone 325-5 MG Tab PO ONE (16:18)
== END 2025-08-10 16:38 | disposition home or self-care (01) ==
LOC: MW.ED 14:45
DX: S46.911A Strain of unspecified muscle, fascia and tendon at shoulder and upper arm level, right arm, initial encounter (principal); J44.9 Chronic obstructive pulmonary disease, unspecified; Z79.899 Other long term (current) drug therapy; Z90.49 Acquired absence of other specified parts of digestive tract; X58.XXXA Exposure to other specified factors, initial encounter; Y93.89 Activity, other specified
CPT/HCPCS: 71046; 93005; 96372; 99283; A9270; J2360; 93010; 99284